=== PATIENT | male | born 1965 | race Caucasian/White ===

== ENCOUNTER 2017-01-29 15:01 | Inpatient (IN) | payer MEDICARE, MEDICAID ==
[2017-01-29] MEDS ORDERED: Albuterol/Ipratropium Neb 3 ML AERS HHN ONE ×4 (15:10→16:22)
--- NOTE | 2017-01-29 15:10 | ED Physician Chart ---
Chief Complaint/HPI - Patient Information Date Seen:: 01/29/17 Time Seen:: 15:06 Chief Complaint:: cough History of Present Illness:: pt sent from [place] for increased cough and sob. has copd hx. cough is prod of white sputum. no known fever. pt has chronic pain dx..says his main pain now is rt shldr shich has been sore x 10 months. no cp. no leg edema or pains. Allergies:: Allergies Allergy/AdvReac Type Severity Reaction Status Date / Time azithromycin Allergy Verified 03/28/16 18:06 erythromycin base Allergy Verified 03/28/16 18:06 lorazepam [From Ativan] Allergy Verified 03/28/16 18:06 Historian:: Patient, EMS Review:: Transfer documents Reviewed Review of Systems - Review of Systems General/Constitutional: No fever, No chills, No weight loss, No weakness, No diaphoresis, No edema, No loss of appetite Skin: No skin lesions, No rash, No bruising Head: No headache, No light-headedness Eyes: No loss of vision, No pain, No diplopia ENT: No earache, No nasal drainage, No sore throat, No tinnitus Neck: No neck pain, No swelling, No thyromegaly, No stiffness, No mass noted Cardio Vascular: No chest pain, No palpitations, No PND, No orthopnea, No edema Pulmonary: SOB, Cough, Sputum, Wheezing GI: No nausea, No vomiting, No diarrhea, No pain, No melena, No hematochezia, No constipation, No hematemesis G/U: No dysuria, No frequency, No hematuria Musculoskeletal: No bone or joint pain, No back pain, No muscle pain Endocrine: No polyuria, No polydipsia Psychiatric: No prior psych history, No depression, No anxiety, No suicidal ideation Hematopoietic: No bruising, No lymphadenopathy Allergic/Immuno: No urticaria, No angioedema Neurological: No syncope, No focal symptoms, No weakness, No paresthesia, No headache, No seizure, No dizziness, No confusion, No vertigo Past Medical History - Past Medical History Past Medical History: HTN, DM, CHF, Asthma/COPD, Dyslipidemia, PUD/GERD, Other ( afib hx w pacer/defibrillator, chronic pain) Social History: Smoker (former smoker), Care Facility Surgical History: other (afib hx w pacer/defibrillator) Medication: Reviewed Family Medical History - Family Member Mother History Unknown: Yes Ethnicity: Non- Living Status: Still Living Hx Family Hypertension: Yes Physical Exam - Physical Examination General/Constitutional: Awake, Well-developed, well-nourished, Alert, No distress, GCS 15, Non-toxic appearing, Ambulatory Other Gen/Cons comments:: alert. conversive. nad. not dyspneic but wheezing heard in b lungfields on exam. Head: Atraumatic Eyes: Lids, conjuctiva normal, PERRL, EOMI Skin: Nl inspection, No rash, No skin lesions, No ecchymosis, Well hydrated, No lymphadenopathy ENMT: External ears, nose nl, Nasal exam nl, Lips, teeth, gums nl Neck: Nontender, Full ROM w/o pain, No JVD, No nuchal rigidity, No bruit, No mass, No stridor Respiratory: Nl effort/Exclusion, Clear to Auscultation Other Respiratory comments:: not dyspneic but wheezing heard in b lungfields on exam. pacer palpable sq in l upper chest Cardio Vascular: RRR, No murmur, gallop, rubs, NL S1 S2 GI: No tenderness/rebounding/guarding, No organomegaly, No hernia, Normal BS's, Nondistended, No mass/bruits, No McBurney tenderness : No CVA tenderness Extremities: No tenderness or effusion, Full ROM, normal strength in all extremities, No edema, Normal digits & nails Other Extremities comments:: no edema. no homans sx. nontndr. not red. Neuro/Psych: Alert/oriented, DTR's symmetric, Normal sensory exam, Normal motor strength, Judgement/insight normal, Mood normal, Normal gait, No focal deficits Misc: normal gait, Normal back, No paraspinal tenderness Labs/Radiology/EKG Results - Lab Results Results: Laboratory Tests 01/29/17 01/29/17 01/29/17 15:31 15:31 15:31 WBC 7.0 D RBC 4.11 L Hgb 12.7 L Hct 37.9 L MCV 92.1 MCH 30.8 H MCHC Differential 33.4 RDW 13.4 Plt Count 190 D MPV 8.5 Neutrophils % 69.6 Lymphocytes % 15.4 L Monocytes % 11.8 H Eosinophils % 2.4 Basophils % 0.8 Sodium 132 L Potassium 6.1 H* Chloride 100 Carbon Dioxide 31.9 H Anion Gap 6.2 L BUN 24 Creatinine 1.3 Est GFR ( Amer) > 60.0 Est GFR (Non-Af Amer) > 60.0 BUN/Creatinine Ratio 18.5 Glucose 119 H Whole Bld Lactic Acid 0.59 L Calcium 9.4 Total Bilirubin 0.3 AST 16 ALT 8 Alkaline Phosphatase 64 Total Protein 7.1 Albumin 4.2 Globulin 2.9 Albumin/Globulin Ratio 1.5 Digoxin 01/29/17 15:31 WBC RBC Hgb Hct MCV MCH MCHC Differential RDW Plt Count MPV Neutrophils % Lymphocytes % Monocytes % Eosinophils % Basophils % Sodium Potassium Chloride Carbon Dioxide Anion Gap BUN Creatinine Est GFR ( Amer) Est GFR (Non-Af Amer) BUN/Creatinine Ratio Glucose Whole Bld Lactic Acid Calcium Total Bilirubin AST ALT Alkaline Phosphatase Total Protein Albumin Globulin Albumin/Globulin Ratio Digoxin 1.7 asked lab to redraw K and confirm elev k is not from hemolysis (ecg shows no qrs widening) - Radiology Results Results: cxr wnl. - EKG Interpretations EKG Time:: 15:25 Rate & Rhythm: nsr 96 [place]: -90 Intervals: pr 204 Comments:: no acute injury patern. pt has a fib hx but I see nsr now..no pacer spikes seen Assessment - Assessment General Assessment: rechk 3;44p pt still sob w wheezing b lungs. sao2 88 on ra. 2nd duoneb and solumedrol ordered. ED Septic Shock - . Is Septic Shock (SBP<90, OR Lactate>4 mmol\L) present?: No Reassessment (Disposition) - Reassessment Reassessment:: rechk sao2 95% on 2l. pt has been drowsing intermittently...at 1 point he concerned me because of his habit of sleeping w mouth open in gasping attitude..however closer exam reveals he is breathing well (w diffuse wheeze still) and easily arousable and speaking wo trouble. 5;27pm calls to dr roque...no answer x over 1 hour. 6;35p case dw dr roque...is admitting pt Reassessment Condition:: Improved - Diagnosis Diagnosis:: copd exacerbation hyperkalemia - Patient Disposition Admitted to:: Telemetry Condition at Disposition:: Improved
--- NOTE | 2017-01-29 15:30 | Diagnostic Imaging Report ---
Portable chest x-ray HISTORY: Cough The heart is enlarged. Cardiac electrode lead wires project over the right atrium and right ventricle. No focal pulmonary processes. No hilar or mediastinal abnormalities. IMPRESSION: 1. Cardiomegaly 2. No acute focal pulmonary parenchymal processes
[2017-01-29 15:40] LABS: % BASOPHILS 0.8 % (0.0-2.0); % EOSINOPHILS 2.4 % (0.0-5.0); % LYMPHOCYTES 15.4 % (20.0-50.0); % MONOCYTES 11.8 % (2.0-10.0); % NEUTROPHILS 69.6 % (40.0-80.0); HEMATOCRIT 37.9 % (39.0-49.0); HEMOGLOBIN 12.7 gm/dL (13.2-17.3); MEAN CELL VOLUME 92.1 fl (80-99); MEAN CORPUSCULAR HEMOGLOBIN 30.8 pg (26.0-30.0); MEAN CORPUSCULAR HGB CONC 33.4 pg (28.0-36.0); MEAN PLATELET VOLUME 8.5 fl; NEUTROPHILE ABSOLUTE 4.8 Th/cmm (1.8-8.0); RED BLOOD COUNT 4.11 Mil/cmm (4.30-5.70); RED CELL DISTRIBUTION WIDTH 13.4 % (11.5-20.0)
[2017-01-29 15:44] LABS: PLATELET COUNT 190 Th/cmm (150-400)
[2017-01-29 15:54] LABS: ALB/GLOB RATIO 1.5 (1.0-1.8); ALKALINE PHOSPHATASE 64 U/L (34-104); ANION GAP 6.2 (7.0-16.0); BILIRUBIN,TOTAL 0.3 mg/dL (0.3-1.0); BUN - UREA NITROGEN 24 mg/dL (7-25); BUN/CREATININE RATIO 18.5; CALCIUM SERUM 9.4 mg/dL (8.6-10.3); CARBON DIOXIDE 31.9 mEq/L (21.0-31.0); CHLORIDE 100 mEq/L (98-107); CREATININE - SERUM 1.3 mg/dL (0.7-1.3); GLUCOSE 119 mg/dL (70-105); SGOT 16 U/L (13-39); SGPT/ALT 8 U/L (7-52); SODIUM SERUM 132 mEq/L (136-145)
[2017-01-29 16:07] LABS: POTASSIUM SERUM 6.1 mEq/L (3.5-5.1)
[2017-01-29] MEDS ORDERED: Sodium Chloride 0.9% 500 ML IV ONE (17:22)
[2017-01-29] MEDS ORDERED: Albuterol Nebulizer 2.5mg/3mL HHN ONE ×2 (19:18→19:20)
[2017-01-29] MEDS ORDERED: Levofloxacin 500mg/100mL 500 MG/100 ML BAG IV ONE (19:30)
[2017-01-29] MEDS ORDERED: Insulin Detemir 100 units/mL 10mL Vial SUBQ SCH (21:00)
[2017-01-29] MEDS: methylPREDNISolone SS 40 mg Vial IVP SCH (21:06)
[2017-01-29] MEDS ORDERED: Magnesium Hydroxide (MOM) 30 mL UDC PO PRN (21:10)
[2017-01-29] MEDS ORDERED: HYDROMORPHONE HCL PO PRN (21:10)
[2017-01-29] MEDS ORDERED: Fleet Enema 135 mL RC PRN (21:10)
[2017-01-29] MEDS ORDERED: [UNRECOGNIZED DRUG - OTHER] IH SCH (21:15)
[2017-01-29] MEDS ORDERED: INDACATEROL IH SCH (21:15)
[2017-01-29] MEDS ORDERED: GLYCOPYRROLATE IH SCH (21:15)
[2017-01-29] MEDS ORDERED: Dextrose 50% 50 mL Abboject IVP PRN (21:15)
[2017-01-29] MEDS: Lidocaine 5% Patch TD SCH (21:33)
[2017-01-29] MEDS: HYDROmorphone 1 mg/mL 1mL Syr IVP PRN (21:36)
[2017-01-29] MEDS: INSULIN ASPART SLIDING SCALE 100 UNITS/ML UNIT SUBQ SCH ×3 (21:39→21:41)
[2017-01-29] MEDS ORDERED: Pneumococcal Vaccine 0.5 mL Vial IM ONE (22:26)
[2017-01-30] MEDS: HYDROmorphone 1 mg/mL 1mL Syr IVP PRN ×3 (02:44→20:13)
[2017-01-30] MEDS: Albuterol Nebulizer 2.5mg/3mL HHN PRN ×2 (03:22→07:47)
[2017-01-30 04:24] LABS: MEAN PLATELET VOLUME 9.1 fl
[2017-01-30 04:37] LABS: HEMOGLOBIN 13.9 gm/dL (13.2-17.3); MEAN CELL VOLUME 93.1 fl (80-99); MEAN CORPUSCULAR HEMOGLOBIN 30.4 pg (26.0-30.0); MEAN CORPUSCULAR HGB CONC 32.7 pg (28.0-36.0); PLATELET COUNT 178 Th/cmm (150-400); RED BLOOD COUNT 4.58 Mil/cmm (4.30-5.70); RED CELL DISTRIBUTION WIDTH 12.9 % (11.5-20.0); WHITE BLOOD COUNT 6.6 Th/cmm (4.8-10.8)
[2017-01-30 04:53] LABS: ANION GAP 11.6 (7.0-16.0); BUN - UREA NITROGEN 25 mg/dL (7-25); BUN/CREATININE RATIO 22.7; CALCIUM SERUM 9.3 mg/dL (8.6-10.3); CARBON DIOXIDE 29.3 mEq/L (21.0-31.0); CHLORIDE 98 mEq/L (98-107); CHOLESTEROL 119 mg/dL (<200); CREATININE - SERUM 1.1 mg/dL (0.7-1.3); GLUCOSE 212 mg/dL (70-105); POTASSIUM SERUM 5.9 mEq/L (3.5-5.1); SODIUM SERUM 133 mEq/L (136-145); TRIGLYCERIDES 69 mg/dL (<150)
[2017-01-30 05:10] LABS: HEMATOCRIT 42.6 % (39.0-49.0)
[2017-01-30 05:40] LABS: BAND NEUTROPHILE 1 % (0-10); NEUTROPHILS 88 % (40-80); TOTAL CELLS COUNTED 100
[2017-01-30] MEDS: methylPREDNISolone SS 40 mg Vial IVP SCH ×3 (05:41→23:17)
[2017-01-30] MEDS: INSULIN ASPART SLIDING SCALE 100 UNITS/ML UNIT SUBQ SCH ×4 (06:40→20:12)
[2017-01-30] MEDS: Pantoprazole 40 mg EC Tab PO SCH ×3 (06:40→17:25)
[2017-01-30] MEDS ORDERED: INSULIN HUMAN REGULAR 100 UNITS/ML UNIT SUBQ SCH (07:30)
[2017-01-30] MEDS ORDERED: Non-Formulary Item 1 EA (Docusate Sodium [Docusate Sodium] 100 MG) RC SCH (09:00)
[2017-01-30] MEDS ORDERED: Benztropine 1 MG TAB PO SCH (09:00)
[2017-01-30] MEDS: Ferrous Sulfate 325 MG TAB PO SCH ×2 (09:40→17:25)
[2017-01-30] MEDS: Benztropine 1 MG TAB PO SCH ×2 (09:40→17:25)
[2017-01-30] MEDS: Aspirin 81mg Chewable Tab PO SCH (09:42)
[2017-01-30] MEDS: Lidocaine 5% Patch TD SCH ×2 (12:33→21:50)
[2017-01-30] MEDS ORDERED: Codeine/Promethazine Susp 5 mL UDC PO PRN (18:57)
[2017-01-30] MEDS: Levofloxacin 500mg/100mL Premix Bag IV SCH (20:08)
[2017-01-30] MEDS: Atorvastatin Calcium 10 MG TAB PO SCH (20:09)
[2017-01-30] MEDS: Insulin Detemir 100 units/mL 10mL Vial SUBQ SCH (20:12)
[2017-01-30] MEDS ORDERED: Atorvastatin Calcium 10 MG TAB PO SCH (21:00)
--- NOTE | 2017-01-30 21:52 | History & Physical ---
ADMIT DATE: 01/30/2017 HISTORY OF PRESENT ILLNESS: This patient is very well known to me. The patient known to have history of multiple problems. The patient known to have history of underlying psychosis, history of severe peripheral neuropathy and the patient also has a history of fibromyalgia and history of hypertension, history of diabetes, history of asthma, COPD, dyslipidemia, peptic ulcer disease, history of atrial fibrillation. The patient has history of pacemaker and history of prior smoking. The patient was seen in the assisted. The patient complaining of increasing cough and increasing shortness of breath, was evaluated in the Emergency Room, was found to have acute exacerbation of COPD, was admitted. The patient complains of chronic pain, complains of right shoulder pain. PHYSICAL EXAMINATION: HEENT: Head: Normocephalic. Pupils equal, reactive to light. NECK: Supple, nontender. LUNGS: Clear. CARDIOVASCULAR SYSTEM: S1, S2 heard. ABDOMEN: Soft. Bowel sounds are heard. CENTRAL NERVOUS SYSTEM: Grossly normal bilateral rhonchi. LABORATORY DATA: White count was 7.0, hemoglobin 12.7, hematocrit was 37. Electrolytes were normal. DIAGNOSES: Acute exacerbation of chronic obstructive pulmonary disease, ____, history of right shoulder pain, history of severe neuralgia, history of severe bronchitis, rule out pneumonia. History of hypertension, history of diabetes, history of atrial fibrillation status post pacemaker. PLAN: The patient is being admitted and I will follow the patient. I will have Pulmonary doctor as well as the Cardiology see the patient. JOB# [id number]
--- NOTE | 2017-01-30 23:13 | Consultation ---
DATE OF CONSULTATION: 01/30/[address] Jaquez for this consultation. HISTORY OF PRESENT ILLNESS: The patient is a 51-year-old male with history of COPD, presents with cough, congestion, shortness of breath and was admitted for treatment and management. The patient is feeling better, shortness of breath decreased and has been receiving breathing treatment. PAST MEDICAL HISTORY: As above, in addition to hypertension, dyslipidemia. SOCIAL HISTORY: Smoking 6 cigarettes a day. He was smoking more in the past, has been smoking for 30 years. REVIEW OF SYSTEMS: GENERAL: Fatigue. CARDIOVASCULAR: No chest pain or palpation. RESPIRATORY: Shortness of breath and cough. GASTROINTESTINAL: No nausea or vomiting. PHYSICAL EXAMINATION: GENERAL: Awake, alert, not in acute distress. VITAL SIGNS: Temperature 97.6, pulse 86, respirations 20, blood pressure 152/82, saturation 93% on 2 liters. HEENT: Atraumatic, normocephalic. Pupils react to light and accommodation. Ears, nose and throat normal. NECK: Supple. No JVD. CHEST: There is diffuse wheezing and rhonchi bilaterally. HEART: Regular rate and rhythm. ABDOMEN: Soft. EXTREMITIES: No edema. LABORATORY DATA: WBC 6.6, hemoglobin 13.9, hematocrit 42.6, platelets 178. Sodium 132, potassium 5.9, BUN 25, creatinine 1.1. TSH is 0.15. Chest x-ray: Cardiomegaly, no infiltrate. IMPRESSION: 1. This is a 51-year-old male with acute chronic obstructive pulmonary disease exacerbation. 2. Acute bronchitis. PLAN: 1. IV antibiotics. 2. IV Solu-Medrol. 3. Nebulizer. 4. Pulmonary toilet. 5. Supportive care. 6. The patient was counseled to quit smoking. Thank you very much for this consultation. I will follow the patient with you. JOB# [id number] KADEN
--- NOTE | 2017-01-30 23:54 | Consultation ---
DATE OF CONSULTATION: 01/29/[address] Jaquez. HISTORY AND PHYSICAL: This is a 51-year-old male patient was brought to the Emergency Room due to upper respiratory tract infection. The patient became short of breath. The patient was seen in the Emergency Room with respiratory failure. Cardiac consult is requested. PAST MEDICAL HISTORY: Hyperkalemia, hypertension, COPD, supraventricular tachycardia, diabetes mellitus type 2, congestive heart failure, GERD, atrial fibrillation, pacemaker for sick sinus syndrome. FAMILY HISTORY: Unremarkable. SOCIAL HISTORY: ____ alcohol abuse. The patient smokes about 1 pack a day. ALLERGIES: None. PHYSICAL EXAMINATION: VITAL SIGNS: Blood pressure 130/80, pulse 80, respirations 28. HEAD: Head: Normocephalic. No lumps or bumps. EYES: Pupils equal, reactive to light. Fundi show AV nicking, sclerae white, conjunctivae pink. NECK: Carotid 2+. Normal upstroke. JVD flat. Thyroid not palpable. Lymph nodes not palpable. CHEST: Shows increased AP diameter. No kyphosis, scoliosis. LUNGS: Bilateral bronchovesicular breath sounds. Occasional wheeze. No rales. HEART: PMI fifth intercostal space with lateral to midclavicular line. S1, S2. No S3, soft S4, systolic murmur, grade 2/6, lower left sternal border without radiation. ABDOMEN: Soft. Liver, spleen not palpable. No organomegaly. Bowel sounds are active. NEUROLOGIC: Unremarkable. EXTREMITIES: Peripheral pulses 1+. No pedal edema. CLINICAL IMPRESSION: Acute respiratory failure, rule out pneumonia, acute exacerbation of chronic obstructive pulmonary disease, hyperkalemia, hypertension, supraventricular tachycardia, diabetes mellitus type 2, congestive heart failure, GERD, atrial fibrillation, sick sinus syndrome, pacemaker. PLAN: We will get an echocardiogram to evaluate left ventricular function. We will get a BNP level and IV antibiotics, control the heart rate. JOB# [id number]
[2017-01-31] MEDS: methylPREDNISolone SS 40 mg Vial IVP SCH ×3 (06:00→17:27)
[2017-01-31] MEDS: Albuterol Nebulizer 2.5mg/3mL HHN PRN ×2 (06:20→10:04)
[2017-01-31] MEDS: INSULIN ASPART SLIDING SCALE 100 UNITS/ML UNIT SUBQ SCH ×4 (06:36→20:53)
[2017-01-31] MEDS: Pantoprazole 40 mg EC Tab PO SCH ×3 (06:37→17:29)
[2017-01-31 07:42] LABS: BUN - UREA NITROGEN 32 mg/dL (7-25); BUN/CREATININE RATIO 29.1; CALCIUM SERUM 9.5 mg/dL (8.6-10.3); CHLORIDE 96 mEq/L (98-107); CREATININE - SERUM 1.1 mg/dL (0.7-1.3); GLUCOSE 204 mg/dL (70-105); SODIUM SERUM 131 mEq/L (136-145)
[2017-01-31] MEDS ORDERED: Lidocaine 5% Patch TD SCH (09:00)
[2017-01-31] MEDS: Ferrous Sulfate 325 MG TAB PO SCH ×2 (09:09→17:28)
[2017-01-31] MEDS: Benztropine 1 MG TAB PO SCH ×2 (09:09→17:29)
[2017-01-31] MEDS: Aspirin 81mg Chewable Tab PO SCH (09:10)
[2017-01-31] MEDS: Lidocaine 5% Patch TD SCH (09:21)
[2017-01-31] MEDS ORDERED: Probiotic Screen MC PRN (09:30)
[2017-01-31] MEDS: HYDROmorphone 1 mg/mL 1mL Syr IVP PRN ×3 (10:33→20:53)
--- NOTE | 2017-01-31 13:40 | General Progress Note ---
Subjective - Review of Systems Events since last encounter: patient with no distress Objective - Results Result Diagrams: 01/30/17 03:30 01/31/17 06:55 Recent Labs: Laboratory Last Values WBC 6.6 Th/cmm (4.8-10.8) 01/30/17 03:30 RBC 4.58 Mil/cmm (4.30-5.70) 01/30/17 03:30 Hgb 13.9 gm/dL (13.2-17.3) 01/30/17 03:30 Hct 42.6 % (39.0-49.0) D 01/30/17 03:30 MCV 93.1 fl (80-99) 01/30/17 03:30 MCH 30.4 pg (26.0-30.0) H 01/30/17 03:30 MCHC Differential 32.7 pg (28.0-36.0) 01/30/17 03:30 RDW 12.9 % (11.5-20.0) 01/30/17 03:30 Plt Count 178 Th/cmm (150-400) 01/30/17 03:30 MPV 9.1 fl 01/30/17 03:30 Neutrophils % 69.6 % (40.0-80.0) 01/29/17 15:31 Band Neutrophils % 1 % (0-10) 01/30/17 03:30 Lymphocytes % 15.4 % (20.0-50.0) L 01/29/17 15:31 Monocytes % 11.8 % (2.0-10.0) H 01/29/17 15:31 Eosinophils % 2.4 % (0.0-5.0) 01/29/17 15:31 Basophils % 0.8 % (0.0-2.0) 01/29/17 15:31 Neutrophils (Manual) 88 % (40-80) H 01/30/17 03:30 Lymphocytes 9 % (20-50) L 01/30/17 03:30 Monocytes 2 % (2-10) 01/30/17 03:30 Sodium 131 mEq/L (136-145) L 01/31/17 06:55 Potassium 5.0 mEq/L (3.5-5.1) 01/31/17 06:55 Chloride 96 mEq/L (98-107) L 01/31/17 06:55 Carbon Dioxide 31.0 mEq/L (21.0-31.0) 01/31/17 06:55 Anion Gap 9.0 (7.0-16.0) 01/31/17 06:55 BUN 32 mg/dL (7-25) H 01/31/17 06:55 Creatinine 1.1 mg/dL (0.7-1.3) 01/31/17 06:55 Est GFR ( Amer) > 60.0 ml/min (>90) 01/31/17 06:55 Est GFR (Non-Af Amer) > 60.0 ml/min 01/31/17 06:55 BUN/Creatinine Ratio 29.1 01/31/17 06:55 Glucose 204 mg/dL (70-105) H 01/31/17 06:55 POC Glucose 311 MG/DL (70 - 105) H 01/31/17 11:14 Hemoglobin A1c % 7.0 % (4.0-6.0) H 01/29/17 15:31 Whole Bld Lactic Acid 0.59 mmol/L (0.60-1.99) L 01/29/17 15:31 Calcium 9.5 mg/dL (8.6-10.3) 01/31/17 06:55 Total Bilirubin 0.3 mg/dL (0.3-1.0) 01/29/17 15:31 AST 16 U/L (13-39) 01/29/17 15:31 ALT 8 U/L (7-52) 01/29/17 15:31 Alkaline Phosphatase 64 U/L (34-104) 01/29/17 15:31 Troponin I 0.03 ng/mL (0.01-0.05) 01/30/17 11:55 B-Natriuretic Peptide 365.0 pg/mL (5.0-100.0) H 01/31/17 06:55 Total Protein 7.1 gm/dL (6.0-8.3) 01/29/17 15:31 Albumin 4.2 gm/dL (4.2-5.5) 01/29/17 15:31 Globulin 2.9 gm/dL 01/29/17 15:31 Albumin/Globulin Ratio 1.5 (1.0-1.8) 01/29/17 15:31 Triglycerides 69 mg/dL (<150) 01/30/17 03:30 Cholesterol 119 mg/dL (<200) 01/30/17 03:30 LDL Cholesterol Direct 78 mg/dL (75-193) 01/30/17 03:30 HDL Cholesterol 34 mg/dL (23-92) 01/30/17 03:30 TSH 0.15 uIU/ml (0.34-5.60) L 01/30/17 03:30 Digoxin 1.7 ng/ml (0.8-2.0) 01/29/17 15:31 - Physical Exam Vitals and I&O: Vital Signs Temp 97.6 F 01/31/17 04:00 Pulse 116 01/31/17 11:23 Resp 20 01/31/17 10:47 BP 113/63 01/31/17 11:23 Pulse Ox 90 01/31/17 10:04 Intake & Output 01/30/17 01/31/17 01/31/17 18:59 06:59 18:59 Intake Total 600 100 Output Total 300 Balance 600 -200 Weight (lbs) 112.945 kg 112.037 kg Intake: Intake, IV Amount 100 Levofloxacin 500mg/100mL 100 500 mg In 100 ml @ 100 mls/hr IV Q24HR [facility] Rx#: [id number] Oral 600 Output: Urine 300 Other: # Voids 2 # Bowel Movements 0 Active Medications: Current Medications Acetaminophen (Tylenol) 650 mg PO Q4HR PRN PRN Reason: temp >100 or mild pain Stop: 03/30/17 21:09 Albuterol Sulfate (Albuterol 2.5mg/3ml Neb Ud) 2.5 mg HHN Q4H PRN PRN Reason: Wheezing Last Admin: 01/31/17 10:04 Dose: 2.5 mg Albuterol Sulfate (Albuterol 2.5mg/3ml Neb Ud) 2.5 mg HHN Q4H PRN PRN Reason: Shortness of Breath Stop: 03/30/17 22:41 Last Admin: 01/30/17 07:47 Dose: 2.5 mg Amiodarone HCl (Cordarone) 200 mg PO BID [facility] Stop: 04/01/17 16:59 Aspirin (Aspirin Chewable) 81 mg PO DAILY [facility] Stop: 03/31/17 08:59 Last Admin: 01/31/17 09:10 Dose: 81 mg Atorvastatin Calcium (Lipitor) 10 mg PO HS AL PRN Reason: Protocol Stop: 03/31/17 20:59 Last Admin: 01/30/17 20:09 Dose: 10 mg Benztropine Mesylate (Cogentin) 1 mg PO BID [place] Stop: 03/31/17 08:59 Last Admin: 01/31/17 09:09 Dose: 1 mg Bisacodyl (Dulcolax 10 Mg Supp) 10 mg RC DAILY PRN PRN Reason: if MOM ineffective Stop: 03/30/17 21:09 Clonazepam (Klonopin) 1 mg PO BID [facility] Stop: 03/31/17 08:59 Last Admin: 01/31/17 09:10 Dose: 1 mg Dextrose (D50w) 25 ml IVP PRN PRN PRN Reason: BS BELOW 70 & NPO Stop: 03/30/17 21:14 Digoxin (Lanoxin) 0.25 mg PO DAILY [facility] Stop: 03/31/17 08:59 Last Admin: 01/31/17 09:09 Dose: 0.25 mg Docusate Sodium (Colace) 100 mg PO BID [facility] Stop: 03/31/17 08:59 Last Admin: 01/31/17 09:09 Dose: 100 mg Escitalopram Oxalate (Lexapro) 60 mg PO DAILY [place] PRN Reason: Protocol Stop: 03/31/17 08:59 Last Admin: 01/31/17 09:21 Dose: 60 mg Ferrous Sulfate (Iron) 325 mg PO BID [facility] Stop: 03/31/17 08:59 Last Admin: 01/31/17 09:09 Dose: 325 mg Gabapentin (Neurontin) 300 mg PO TID [facility] Stop: 03/31/17 08:59 Last Admin: 01/31/17 09:10 Dose: 300 mg Hydromorphone HCl (Dilaudid) 1 mg IVP Q4HR PRN PRN Reason: Severe Pain Stop: 03/30/17 21:09 Last Admin: 01/31/17 10:33 Dose: 1 mg Levofloxacin (Levaquin Pb) 500 mg in 100 mls @ 100 mls/hr IV Q24HR [facility] Stop: 03/31/17 20:59 Last Infusion: 01/30/17 21:08 Dose: Infused Insulin Aspart (Novolog Insulin Sliding Scale) 0 units SUBQ ACHS [facility] PRN Reason: Protocol Stop: 03/30/17 07:29 Last Admin: 01/31/17 11:22 Dose: 8 units Insulin Detemir (Levemir Insulin) 20 units SUBQ HS AL PRN Reason: Protocol Stop: 03/30/17 20:59 Last Admin: 01/30/17 20:12 Dose: 20 units Lactobacillus Rhamnosus (Culturelle) 1 each PO DAILY [facility] Stop: 04/02/17 08:59 Lidocaine (Lidoderm 5% Patch) 1 patch TD DAILY [facility] Stop: 04/01/17 08:59 Last Admin: 01/31/17 09:21 Dose: 1 patch Lisinopril (Zestril) 10 mg PO Q12H [facility] Stop: 03/30/17 22:59 Last Admin: 01/31/17 11:23 Dose: 10 mg Magnesium Hydroxide (Milk Of Magnesia) 30 ml PO DAILY PRN PRN Reason: if no BM x2 days Stop: 03/30/17 21:09 Magnesium Oxide (Mag-Oxide) 400 mg PO DAILY [facility] Stop: 03/31/17 08:59 Last Admin: 01/31/17 09:00 Dose: 400 mg Methylprednisolone Sodium Succinate (Solu-Medrol) 40 mg IVP Q6HR [facility] Stop: 03/31/17 17:59 Last Admin: 01/31/17 11:15 Dose: 40 mg Metoprolol Tartrate (Lopressor) 25 mg PO Q12H [facility] Stop: 03/30/17 22:58 Last Admin: 01/31/17 11:23 Dose: 25 mg Miscellaneous (Indacaterol/Glycopyrrolate [Utibron Neohaler 27.5-15.6 Mcg]) 1 each IH Q12H [facility] Stop: 03/30/17 21:14 Miscellaneous (Probiotic Screen) 1 ea MC PRN PRN PRN Reason: PROTOCOL Stop: 04/01/17 09:29 Ondansetron HCl (Zofran) 4 mg IV Q6H PRN PRN Reason: Nausea / Vomiting Stop: 03/30/17 21:10 Pantoprazole Sodium (Protonix) 40 mg PO AC [facility] Stop: 03/31/17 07:29 Last Admin: 01/31/17 11:16 Dose: 40 mg Promethazine HCl/Codeine (Phenergan W/Cod Susp) 5 ml PO Q4H PRN PRN Reason: Cough Stop: 03/31/17 18:56 Risperidone (Risperdal) 3 mg PO BID AL PRN Reason: Protocol Stop: 03/31/17 08:59 Last Admin: 01/31/17 09:09 Dose: 3 mg Sodium Phosphate (Fleet Enema) 135 ml RC DAILY PRN PRN Reason: if MOM or dulcolax ineffective Stop: 03/30/17 21:09 Spironolactone (Aldactone) 25 mg PO DAILY [facility] Stop: 03/31/17 08:59 Last Admin: 01/31/17 09:11 Dose: 25 mg Terazosin HCl (Hytrin) 5 mg PO HS [facility] Stop: 03/31/17 20:59 Last Admin: 01/30/17 20:10 Dose: 5 mg Assessment/Plan - Problem List Patient Problems: All Active Problems Diastolic CHF, acute on chronic (Acute) I50.33 H/O CHF (Acute) Z86.79 H/O cardiomyopathy (Acute) Z86.79 H/O diabetes mellitus (Acute) Z86.39 HTN (hypertension) (Acute) I10 h/o diastolic heart failure (Acute) intracticular fracture of the humeral he (Acute) Nutritional Asmnt/Malnutr-PDOC - Dietary Evaluation Malnutrition Findings (Please click <Entered> for more info): Nutritional Asmnt/Malnutrition Start: 01/31/17 11: 57 Text: Status: Complete Freq: Document 01/31/17 11:57 [facility] (Rec: 01/31/17 12:27 [facility]-[id number]) Nutritional Asmnt/Malnutrition Patient General Information Nutritional Screening Consult Diagnosis Acute exacerbation of COPD Pertinent Medical Hx/Surgical Hx Underlying psychosis, severe peripheral neuropathy, HTN, DM , asthma, COPD, dyslipidemia, peptic ulcer disease, atrial fibillation, pacemaker placement. Subjective Information Nutrition Consult for BG 236 received and completed. Pt is a 51-year-old male admitted with chief complaint of increasing cough and increasing shortness of breath . Pt was awake and alert during time of visit. No muscle or fat depletion assessed. Pt reports having an "okay" appetite, eating three meals a day that his SNF prepares. RD offered diet education but pt declined at this time. Poor oral hygiene observed. Current Diet Order/ Nutrition Support CCHO-60 GM Patient / S.O Can Pertinent Medications Lipitor, Colace, Iron, Dilaudid, Novolog, Levemir, Levaquin, Mag-Oxide, Protonix, Risperdal Pertinent Labs (01/29) A1C 7H (01/31) Na 131L, BUN 32H, Glucose (fasting) 204H, POC Glucose 311H Nutritional Hx/Data Height 1.73 m Height (Calculated Centimeters) 172.7 Current Weight (lbs) 112.037 kg Weight (Calculated Kilograms) 112.0 Weight (Calculated Grams) 887441.3 Usual body Weight (lbs) 240 % Usual Body Weight 103 [place] Body Weight 154 % [place] Body Weight 156 Recent Weight Change No Weight Status Obese GI Symptoms GI Symptoms None Last BM Food Allergies No Cultural/Ethnic/Hindu Belief No preferences provided. Usual diet at home Low salt, low fat, low sugar Skin Integrity/Comment: Apolinar 20. No skin breakdown. Current %PO Fair (50-74%) Estimated Nutritional Goals BEE in Kcals: Adj wt of IBW Calories/Kcals/Kg Based on IBW 70 kg with consideration of COPD exacerbation Kcals Calculated 3240-5827 kcals/day (30-35 kcals/kg) Protein: Adj wt of IBW Protein g/kg: Based on IBW 70 kg with consideration of COPD exacerbation Protein Calculated 91-140 gm/day (1.3-2 gm/kg) Fluid: ml 1148-9944 ml/day (1 ml/kcal) or per MD/DO Nutritional Problem 1. Problem Problem Altered-nutrition related laboratory values related to Etiology possible endocrine dysfunction or respiratory distress as evidenced by` Signs/Symptoms: fasting glucose 204 mg/dl on . Malnutrition Alert Protein-Calorie Malnutrition N/A Is there a minimum of two criteria No selected? Query Text:Check all the applicable criteria. A minimum of two criteria are recommended for diagnosis of either severe or non-severe malnutrition. Malnutrition Related to Morbid Obesity Malnutrition related to morbid obesity No Intervention/Recommendation Recommendations by RD Increase Calorie Intake Comments 1. Recommend increase diet to CCHO-75 gm to better meet estimated nutritional needs. 2. Pt declined nutrition education at this time. Expected Outcomes/Goals Expected Outcomes/Goals Blood glucose will trend towards desired parameters. Physician Parameters for PEM Serum Albumin (g/dl) 3.5 - 5.0 (Normal)
[2017-01-31 14:47] LABS: ABG SOURCE Arterial; BE(B) 6.7 mEq/L (-3.0-3.0); HCO3 30.1 mEq/L (20.0-26.0); pH 7.32 (7.35-7.45)
[2017-01-31 14:48] LABS: ALLEN TEST PASS; CRITICAL VALUES REPORTED BY PW; FIO2 28
[2017-01-31] MEDS: Albuterol Nebulizer 2.5mg/3mL HHN SCH ×3 (15:19→23:24)
[2017-01-31] MEDS: Insulin Detemir 100 units/mL 10mL Vial SUBQ SCH (20:53)
[2017-01-31] MEDS: Atorvastatin Calcium 10 MG TAB PO SCH (20:53)
[2017-01-31] MEDS: Levofloxacin 500mg/100mL Premix Bag IV SCH (21:07)
[2017-02-01] MEDS: methylPREDNISolone SS 40 mg Vial IVP SCH ×5 (00:38→23:55)
[2017-02-01] MEDS: Albuterol Nebulizer 2.5mg/3mL HHN SCH ×6 (03:08→23:50)
--- NOTE | 2017-02-01 03:53 | Admit Criteria Form ---
Admit Criteria Forms - Admit Criteria Diagnosis: COPD Clinical Indications for Admission to Inpatient Care ([place]/ check or initial the applicable condition/criteria) Admission is indicated for ANY ONE of the following (1)(2)(3): [ X]I. Acute exacerbation by high-risk comorbidity(e.g., pneumonia, dysrhythmia, heart failure, pleural effusion, pneumothorax) or severe underlying COPD (eg, baseline FEV1 less than 50% predicted) [ ]II. Inpatient admission required[A] rather than observation care (see Chronic Obstructive Pulmonary Disease: Observation Care) because of ANY ONE of the following: [ ]a) New or pre-existing signs or symptoms of COPD (eg, dyspnea or Tachypnea at rest or with minimal activity) that persist despite outpatient and observation care treatment [ ]b) New-onset hypoxemia (room air SaO2 less than 90%, PO2 less than 60 mm Hg (8.0 kPa)) that persists despite outpatient and observation care treatment [ ]c) Worsening of pre-existing hypoxemia (eg, new or increased requirement for supplemental oxygen to maintain oxygenation at baseline level) that persists despite outpatient and observation care treatment, with oxygen treatment needs performable only in acute inpatient setting [ ]d) Hypercarbia (PCO2 greater than 40 mm Hg (5.3 kPa))-induced respiratory acidosis (pH less than 7.35) that persists despite outpatient and observation care treatment [ ]e) Supplemental oxygen or respiratory treatments for over 24 hours that are performable only in acute inpatient setting [ ]f) Chest tube placement with active evacuation (e.g., suction, drainage) (6) [ ]g) Other condition, treatment or monitoring requiring inpatient admission [ ]III. Planned invasive surgical or diagnostic procedures requiring acute- care hospitalization [ ]IV. Acute respiratory failure (e.g., uncompensated hypercarbia, severe hypoxemia) [ ]V. Severe comorbid condition (e.g., severe steroid myopathy, acute vertebral fracture) that has acutely worsened pulmonary function [ ]. Altered mental status that is severe or persistent Extended stay beyond goal length of stay may be needed for (29)(30)(31)(32)(33) : [ ]a ) Respiratory Failure. [ ]b) Severe or persisting hypoxemia or hypercarbia [ ]c) Severe or persistent dyspnea [ ]d) Clinically significant Comorbidities (e.g. chronic heart failure, atrial fibrillation with rapid response, pneumonia)(36) [ ]e) Malnutrition (33) The original [facility] content created by [facility] has been revised. The portions of the content which have been revised are identified through the use of italic text or in bold, and [facility] has neither reviewed nor approved the modified material. All other unmodified content is copyright [facility]. Please see references footnoted in the original [facility] edition 2017 Admit Criteria Met?: Yes
--- NOTE | 2017-02-01 04:54 | Cardiology ---
01/31/2017 PATIENT OF: Dr. Jaquez. M-MODE ECHOCARDIOGRAM: Mitral valve shows decreased excursion. Left ventricular posterior wall shows normal thickness, decreased excursion. Intraventricular septum showed normal thickness, decreased excursion. Ejection fraction 10%. Left atrium normal. Aortic root shows normal dimension, normal excursion of aortic leaflets. CONCLUSION: Minimal hypertrophy of the left ventricle, cardiomyopathy, ejection fraction 10%. 2D ECHO: Long axis view shows enlarged left ventricular cavity with global hypokinesis. Mitral valve shows decreased excursion. Left atrium normal. Aortic root shows normal dimension, normal excursion of aortic leaflets. Short axis view of mitral valve normal. Short axis view of aortic valve normal. Apical four chamber view shows cardiomyopathy, ejection fraction 10%, left atrium normal. Right ventricular cavity, right atrium normal, minimal hypertrophy of the left ventricle. CONCLUSION: Minimal hypertrophy of the left ventricle, cardiomyopathy, ejection fraction 10%. Doppler study shows mild aortic regurgitation. JOB# [id number]
[2017-02-01] MEDS: INSULIN ASPART SLIDING SCALE 100 UNITS/ML UNIT SUBQ SCH ×4 (07:02→20:34)
[2017-02-01] MEDS: Pantoprazole 40 mg EC Tab PO SCH ×3 (07:03→16:39)
[2017-02-01] MEDS: HYDROmorphone 1 mg/mL 1mL Syr IVP PRN ×3 (07:08→17:46)
--- NOTE | 2017-02-01 08:16 | General Progress Note ---
Subjective - Review of Systems Events since last encounter: patient with no distress c/o sob Objective - Results Result Diagrams: 01/30/17 03:30 01/31/17 06:55 Recent Labs: Laboratory Last Values WBC 6.6 Th/cmm (4.8-10.8) 01/30/17 03:30 RBC 4.58 Mil/cmm (4.30-5.70) 01/30/17 03:30 Hgb 13.9 gm/dL (13.2-17.3) 01/30/17 03:30 Hct 42.6 % (39.0-49.0) D 01/30/17 03:30 MCV 93.1 fl (80-99) 01/30/17 03:30 MCH 30.4 pg (26.0-30.0) H 01/30/17 03:30 MCHC Differential 32.7 pg (28.0-36.0) 01/30/17 03:30 RDW 12.9 % (11.5-20.0) 01/30/17 03:30 Plt Count 178 Th/cmm (150-400) 01/30/17 03:30 MPV 9.1 fl 01/30/17 03:30 Neutrophils % 69.6 % (40.0-80.0) 01/29/17 15:31 Band Neutrophils % 1 % (0-10) 01/30/17 03:30 Lymphocytes % 15.4 % (20.0-50.0) L 01/29/17 15:31 Monocytes % 11.8 % (2.0-10.0) H 01/29/17 15:31 Eosinophils % 2.4 % (0.0-5.0) 01/29/17 15:31 Basophils % 0.8 % (0.0-2.0) 01/29/17 15:31 Neutrophils (Manual) 88 % (40-80) H 01/30/17 03:30 Lymphocytes 9 % (20-50) L 01/30/17 03:30 Monocytes 2 % (2-10) 01/30/17 03:30 Specimen Source Arterial 01/31/17 14:40 Sample Site Right Radial 01/31/17 14:40 pH 7.32 (7.35-7.45) L 01/31/17 14:40 pCO2 68.0 mmHg (35.0-45.0) H* 01/31/17 14:40 pO2 71.0 mmHg (80.0-100.0) L 01/31/17 14:40 HCO3 30.1 mEq/L (20.0-26.0) H 01/31/17 14:40 Base Excess 6.7 mEq/L (-3.0-3.0) H 01/31/17 14:40 O2 Saturation 93.0 % (92.0-100.0) 01/31/17 14:40 [place] Test PASS 01/31/17 14:40 Inspired O2 28 01/31/17 14:40 Critical Value PW 01/31/17 14:40 Sodium 131 mEq/L (136-145) L 01/31/17 06:55 Potassium 5.0 mEq/L (3.5-5.1) 01/31/17 06:55 Chloride 96 mEq/L (98-107) L 01/31/17 06:55 Carbon Dioxide 31.0 mEq/L (21.0-31.0) 01/31/17 06:55 Anion Gap 9.0 (7.0-16.0) 01/31/17 06:55 BUN 32 mg/dL (7-25) H 01/31/17 06:55 Creatinine 1.1 mg/dL (0.7-1.3) 01/31/17 06:55 Est GFR ( Amer) > 60.0 ml/min (>90) 01/31/17 06:55 Est GFR (Non-Af Amer) > 60.0 ml/min 01/31/17 06:55 BUN/Creatinine Ratio 29.1 01/31/17 06:55 Glucose 204 mg/dL (70-105) H 01/31/17 06:55 POC Glucose 226 MG/DL (70 - 105) H 01/31/17 20:39 Hemoglobin A1c % 7.0 % (4.0-6.0) H 01/29/17 15:31 Whole Bld Lactic Acid 0.59 mmol/L (0.60-1.99) L 01/29/17 15:31 Calcium 9.5 mg/dL (8.6-10.3) 01/31/17 06:55 Total Bilirubin 0.3 mg/dL (0.3-1.0) 01/29/17 15:31 AST 16 U/L (13-39) 01/29/17 15:31 ALT 8 U/L (7-52) 01/29/17 15:31 Alkaline Phosphatase 64 U/L (34-104) 01/29/17 15:31 Troponin I 0.03 ng/mL (0.01-0.05) 01/30/17 11:55 B-Natriuretic Peptide 365.0 pg/mL (5.0-100.0) H 01/31/17 06:55 Total Protein 7.1 gm/dL (6.0-8.3) 01/29/17 15:31 Albumin 4.2 gm/dL (4.2-5.5) 01/29/17 15:31 Globulin 2.9 gm/dL 01/29/17 15:31 Albumin/Globulin Ratio 1.5 (1.0-1.8) 01/29/17 15:31 Triglycerides 69 mg/dL (<150) 01/30/17 03:30 Cholesterol 119 mg/dL (<200) 01/30/17 03:30 LDL Cholesterol Direct 78 mg/dL (75-193) 01/30/17 03:30 HDL Cholesterol 34 mg/dL (23-92) 01/30/17 03:30 TSH 0.15 uIU/ml (0.34-5.60) L 01/30/17 03:30 Digoxin 1.7 ng/ml (0.8-2.0) 01/29/17 15:31 - Physical Exam Vitals and I&O: Vital Signs Temp 97.6 F 02/01/17 04:00 Pulse 84 02/01/17 04:00 Resp 26 02/01/17 07:38 BP 140/69 02/01/17 04:00 Pulse Ox 97 02/01/17 07:38 Intake & Output 01/31/17 02/01/17 02/01/17 18:59 06:59 18:59 Intake Total 1500 340 Output Total 1400 800 Balance 100 340 -800 Weight (lbs) 112.037 kg 111.584 kg 111.584 kg Intake: Oral 1500 340 Output: Urine 1400 800 Active Medications: Current Medications Acetaminophen (Tylenol) 650 mg PO Q4HR PRN PRN Reason: temp >100 or mild pain Stop: 03/30/17 21:09 Albuterol Sulfate (Albuterol 2.5mg/3ml Neb Ud) 2.5 mg HHN Q4HRT [facility] Stop: 04/01/17 14:29 Last Admin: 02/01/17 07:37 Dose: 2.5 mg Amiodarone HCl (Cordarone) 200 mg PO BID AL Stop: 04/01/17 16:59 Last Admin: 01/31/17 17:29 Dose: 200 mg Aspirin (Aspirin Chewable) 81 mg PO DAILY AL Stop: 03/31/17 08:59 Last Admin: 01/31/17 09:10 Dose: 81 mg Atorvastatin Calcium (Lipitor) 10 mg PO HS AL PRN Reason: Protocol Stop: 03/31/17 20:59 Last Admin: 01/31/17 20:53 Dose: 10 mg Benztropine Mesylate (Cogentin) 1 mg PO BID [facility] Stop: 03/31/17 08:59 Last Admin: 01/31/17 17:29 Dose: 1 mg Bisacodyl (Dulcolax 10 Mg Supp) 10 mg RC DAILY PRN PRN Reason: if MOM ineffective Stop: 03/30/17 21:09 Clonazepam (Klonopin) 1 mg PO BID AL PRN Reason: Protocol Stop: 04/01/17 21:44 Last Admin: 02/01/17 00:18 Dose: Not Given Dextrose (D50w) 25 ml IVP PRN PRN PRN Reason: BS BELOW 70 & NPO Stop: 03/30/17 21:14 Digoxin (Lanoxin) 0.25 mg PO DAILY [facility] Stop: 03/31/17 08:59 Last Admin: 01/31/17 09:09 Dose: 0.25 mg Docusate Sodium (Colace) 100 mg PO BID [facility] Stop: 03/31/17 08:59 Last Admin: 01/31/17 17:28 Dose: 100 mg Escitalopram Oxalate (Lexapro) 60 mg PO DAILY AL PRN Reason: Protocol Stop: 03/31/17 08:59 Last Admin: 01/31/17 09:21 Dose: 60 mg Ferrous Sulfate (Iron) 325 mg PO BID [facility] Stop: 03/31/17 08:59 Last Admin: 01/31/17 17:28 Dose: 325 mg Gabapentin (Neurontin) 300 mg PO TID [facility] Stop: 03/31/17 08:59 Last Admin: 01/31/17 20:51 Dose: 300 mg Hydromorphone HCl (Dilaudid) 1 mg IVP Q4HR PRN PRN Reason: Severe Pain Stop: 03/30/17 21:09 Last Admin: 02/01/17 07:08 Dose: 1 mg Levofloxacin (Levaquin Pb) 500 mg in 100 mls @ 100 mls/hr IV Q24HR AL Stop: 03/31/17 20:59 Last Admin: 01/31/17 21:07 Dose: 100 mls/hr Insulin Aspart (Novolog Insulin Sliding Scale) 0 units SUBQ ACHS AL PRN Reason: Protocol Stop: 03/30/17 07:29 Last Admin: 02/01/17 07:02 Dose: 4 units Insulin Detemir (Levemir Insulin) 20 units SUBQ HS AL PRN Reason: Protocol Stop: 03/30/17 20:59 Last Admin: 01/31/17 20:53 Dose: 20 units Lactobacillus Rhamnosus (Culturelle) 1 each PO DAILY [facility] Stop: 04/02/17 08:59 Lidocaine (Lidoderm 5% Patch) 1 patch TD DAILY AL Stop: 04/01/17 08:59 Last Admin: 01/31/17 09:21 Dose: 1 patch Lisinopril (Zestril) 10 mg PO Q12H AL Stop: 03/30/17 22:59 Last Admin: 02/01/17 00:17 Dose: 10 mg Magnesium Hydroxide (Milk Of Magnesia) 30 ml PO DAILY PRN PRN Reason: if no BM x2 days Stop: 03/30/17 21:09 Magnesium Oxide (Mag-Oxide) 400 mg PO DAILY AL Stop: 03/31/17 08:59 Last Admin: 01/31/17 09:00 Dose: 400 mg Methylprednisolone Sodium Succinate (Solu-Medrol) 80 mg IVP Q6HR AL Stop: 03/31/17 17:59 Last Admin: 02/01/17 05:37 Dose: 80 mg Metoprolol Tartrate (Lopressor) 25 mg PO Q12H AL Stop: 03/30/17 22:58 Last Admin: 02/01/17 00:17 Dose: 25 mg Miscellaneous (Indacaterol/Glycopyrrolate [Utibron Neohaler 27.5-15.6 Mcg]) 1 each IH Q12H AL Stop: 03/30/17 21:14 Miscellaneous (Probiotic Screen) 1 ea MC PRN PRN PRN Reason: PROTOCOL Stop: 04/01/17 09:29 Ondansetron HCl (Zofran) 4 mg IV Q6H PRN PRN Reason: Nausea / Vomiting Stop: 03/30/17 21:10 Pantoprazole Sodium (Protonix) 40 mg PO AC AL Stop: 03/31/17 07:29 Last Admin: 02/01/17 07:03 Dose: 40 mg Promethazine HCl/Codeine (Phenergan W/Cod Susp) 5 ml PO Q4H PRN PRN Reason: Cough Stop: 03/31/17 18:56 Risperidone (Risperdal) 3 mg PO BID AL PRN Reason: Protocol Stop: 03/31/17 08:59 Last Admin: 01/31/17 17:28 Dose: 3 mg Sodium Phosphate (Fleet Enema) 135 ml RC DAILY PRN PRN Reason: if MOM or dulcolax ineffective Stop: 03/30/17 21:09 Spironolactone (Aldactone) 25 mg PO DAILY AL Stop: 03/31/17 08:59 Last Admin: 01/31/17 09:11 Dose: 25 mg Terazosin HCl (Hytrin) 5 mg PO HS AL Stop: 03/31/17 20:59 Last Admin: 01/31/17 20:51 Dose: 5 mg Assessment/Plan - Problem List Patient Problems: All Active Problems Diastolic CHF, acute on chronic (Acute) I50.33 H/O CHF (Acute) Z86.79 H/O cardiomyopathy (Acute) Z86.79 H/O diabetes mellitus (Acute) Z86.39 HTN (hypertension) (Acute) I10 h/o diastolic heart failure (Acute) intracticular fracture of the humeral he (Acute) Nutritional Asmnt/Malnutr-PDOC - Dietary Evaluation Malnutrition Findings (Please click <Entered> for more info): Nutritional Asmnt/Malnutrition Start: 01/31/17 11: 57 Text: Status: Complete Freq: Document 01/31/17 11:57 [facility] (Rec: 01/31/17 12:27 [id number]) Nutritional Asmnt/Malnutrition Patient General Information Nutritional Screening Consult Diagnosis Acute exacerbation of COPD Pertinent Medical Hx/Surgical Hx Underlying psychosis, severe peripheral neuropathy, HTN, DM , asthma, COPD, dyslipidemia, peptic ulcer disease, atrial fibillation, pacemaker placement. Subjective Information Nutrition Consult for BG 236 received and completed. Pt is a 51-year-old male admitted with chief complaint of increasing cough and increasing shortness of breath . Pt was awake and alert during time of visit. No muscle or fat depletion assessed. Pt reports having an "okay" appetite, eating three meals a day that his SNF prepares. RD offered diet education but pt declined at this time. Poor oral hygiene observed. Current Diet Order/ Nutrition Support CCHO-60 GM Patient / S.O Can Pertinent Medications Lipitor, Colace, Iron, Dilaudid, Novolog, Levemir, Levaquin, Mag-Oxide, Protonix, Risperdal Pertinent Labs (01/29) A1C 7H (01/31) Na 131L, BUN 32H, Glucose (fasting) 204H, POC Glucose 311H Nutritional Hx/Data Height 1.73 m Height (Calculated Centimeters) 172.7 Current Weight (lbs) 112.037 kg Weight (Calculated Kilograms) 112.0 Weight (Calculated Grams) 329930.3 Usual body Weight (lbs) 240 % Usual Body Weight 103 [place] Body Weight 154 % [place] Body Weight 156 Recent Weight Change No Weight Status Obese GI Symptoms GI Symptoms None Last BM Food Allergies No Cultural/Ethnic/Holiness Belief No preferences provided. Usual diet at home Low salt, low fat, low sugar Skin Integrity/Comment: Apolinar 20. No skin breakdown. Current %PO Fair (50-74%) Estimated Nutritional Goals BEE in Kcals: Adj wt of IBW Calories/Kcals/Kg Based on IBW 70 kg with consideration of COPD exacerbation Kcals Calculated 2125-1110 kcals/day (30-35 kcals/kg) Protein: Adj wt of IBW Protein g/kg: Based on IBW 70 kg with consideration of COPD exacerbation Protein Calculated 91-140 gm/day (1.3-2 gm/kg) Fluid: ml 2739-5649 ml/day (1 ml/kcal) or per MD/DO Nutritional Problem 1. Problem Problem Altered-nutrition related laboratory values related to Etiology possible endocrine dysfunction or respiratory distress as evidenced by` Signs/Symptoms: fasting glucose 204 mg/dl on . Malnutrition Alert Protein-Calorie Malnutrition N/A Is there a minimum of two criteria No selected? Query Text:Check all the applicable criteria. A minimum of two criteria are recommended for diagnosis of either severe or non-severe malnutrition. Malnutrition Related to Morbid Obesity Malnutrition related to morbid obesity No Intervention/Recommendation Recommendations by RD Increase Calorie Intake Comments 1. Recommend increase diet to CCHO-75 gm to better meet estimated nutritional needs. 2. Pt declined nutrition education at this time. Expected Outcomes/Goals Expected Outcomes/Goals Blood glucose will trend towards desired parameters. Physician Parameters for PEM Serum Albumin (g/dl) 3.5 - 5.0 (Normal)
[2017-02-01] MEDS: Aspirin 81mg Chewable Tab PO SCH (08:24)
[2017-02-01] MEDS: Lactobacillus Rhamnosus 10 Billion CFU Capsule PO SCH (08:27)
[2017-02-01] MEDS: Benztropine 1 MG TAB PO SCH ×2 (08:27→16:39)
[2017-02-01] MEDS: Ferrous Sulfate 325 MG TAB PO SCH ×2 (08:27→16:39)
[2017-02-01] MEDS: Lidocaine 5% Patch TD SCH (08:42)
[2017-02-01 15:28] LABS: pH 7.33 (7.35-7.45)
[2017-02-01 15:30] LABS: ABG SOURCE Arterial; ALLEN TEST Positive; BE(B) 8.1 mEq/L (-3.0-3.0); FIO2 32; HCO3 31.1 mEq/L (20.0-26.0)
[2017-02-01] MEDS: Levofloxacin 500mg/100mL Premix Bag IV SCH (20:26)
[2017-02-01] MEDS: Insulin Detemir 100 units/mL 10mL Vial SUBQ SCH (20:27)
[2017-02-01] MEDS: Atorvastatin Calcium 10 MG TAB PO SCH (20:28)
[2017-02-02] MEDS: Albuterol Nebulizer 2.5mg/3mL HHN SCH ×6 (02:46→23:22)
[2017-02-02] MEDS: methylPREDNISolone SS 40 mg Vial IVP SCH ×3 (06:03→18:27)
[2017-02-02] MEDS: INSULIN ASPART SLIDING SCALE 100 UNITS/ML UNIT SUBQ SCH ×4 (06:51→22:22)
[2017-02-02] MEDS: Pantoprazole 40 mg EC Tab PO SCH ×3 (06:51→18:27)
[2017-02-02] MEDS: Ferrous Sulfate 325 MG TAB PO SCH ×2 (09:50→20:54)
[2017-02-02] MEDS: Lactobacillus Rhamnosus 10 Billion CFU Capsule PO SCH (09:50)
[2017-02-02] MEDS: Aspirin 81mg Chewable Tab PO SCH (09:52)
[2017-02-02] MEDS: Benztropine 1 MG TAB PO SCH ×2 (09:52→18:27)
[2017-02-02] MEDS: Lidocaine 5% Patch TD SCH (11:42)
[2017-02-02] MEDS: HYDROmorphone 1 mg/mL 1mL Syr IVP PRN ×2 (11:47→20:56)
--- NOTE | 2017-02-02 16:20 | Internal Medicine Prog Note ---
Internal Medicine Objective - Results Result Diagrams: 01/30/17 03:30 01/31/17 06:55 Recent Labs: Laboratory Last Values WBC 6.6 Th/cmm (4.8-10.8) 01/30/17 03:30 RBC 4.58 Mil/cmm (4.30-5.70) 01/30/17 03:30 Hgb 13.9 gm/dL (13.2-17.3) 01/30/17 03:30 Hct 42.6 % (39.0-49.0) D 01/30/17 03:30 MCV 93.1 fl (80-99) 01/30/17 03:30 MCH 30.4 pg (26.0-30.0) H 01/30/17 03:30 MCHC Differential 32.7 pg (28.0-36.0) 01/30/17 03:30 RDW 12.9 % (11.5-20.0) 01/30/17 03:30 Plt Count 178 Th/cmm (150-400) 01/30/17 03:30 MPV 9.1 fl 01/30/17 03:30 Neutrophils % 69.6 % (40.0-80.0) 01/29/17 15:31 Band Neutrophils % 1 % (0-10) 01/30/17 03:30 Lymphocytes % 15.4 % (20.0-50.0) L 01/29/17 15:31 Monocytes % 11.8 % (2.0-10.0) H 01/29/17 15:31 Eosinophils % 2.4 % (0.0-5.0) 01/29/17 15:31 Basophils % 0.8 % (0.0-2.0) 01/29/17 15:31 Neutrophils (Manual) 88 % (40-80) H 01/30/17 03:30 Lymphocytes 9 % (20-50) L 01/30/17 03:30 Monocytes 2 % (2-10) 01/30/17 03:30 Specimen Source Arterial 02/01/17 15:18 Sample Site Right Radial 02/01/17 15:18 pH 7.33 (7.35-7.45) L 02/01/17 15:18 pCO2 69.0 mmHg (35.0-45.0) H* 02/01/17 15:18 pO2 66.0 mmHg (80.0-100.0) L 02/01/17 15:18 HCO3 31.1 mEq/L (20.0-26.0) H 02/01/17 15:18 Base Excess 8.1 mEq/L (-3.0-3.0) H 02/01/17 15:18 O2 Saturation 91.0 % (92.0-100.0) L 02/01/17 15:18 [place] Test Positive 02/01/17 15:18 Inspired O2 32 02/01/17 15:18 Critical Value PING 02/01/17 15:18 Sodium 131 mEq/L (136-145) L 01/31/17 06:55 Potassium 5.0 mEq/L (3.5-5.1) 01/31/17 06:55 Chloride 96 mEq/L (98-107) L 01/31/17 06:55 Carbon Dioxide 31.0 mEq/L (21.0-31.0) 01/31/17 06:55 Anion Gap 9.0 (7.0-16.0) 01/31/17 06:55 BUN 32 mg/dL (7-25) H 01/31/17 06:55 Creatinine 1.1 mg/dL (0.7-1.3) 01/31/17 06:55 Est GFR ( Amer) > 60.0 ml/min (>90) 01/31/17 06:55 Est GFR (Non-Af Amer) > 60.0 ml/min 01/31/17 06:55 BUN/Creatinine Ratio 29.1 01/31/17 06:55 Glucose 204 mg/dL (70-105) H 01/31/17 06:55 POC Glucose 350 MG/DL (70 - 105) H 02/02/17 13:25 Hemoglobin A1c % 7.0 % (4.0-6.0) H 01/29/17 15:31 Whole Bld Lactic Acid 0.59 mmol/L (0.60-1.99) L 01/29/17 15:31 Calcium 9.5 mg/dL (8.6-10.3) 01/31/17 06:55 Total Bilirubin 0.3 mg/dL (0.3-1.0) 01/29/17 15:31 AST 16 U/L (13-39) 01/29/17 15:31 ALT 8 U/L (7-52) 01/29/17 15:31 Alkaline Phosphatase 64 U/L (34-104) 01/29/17 15:31 Troponin I 0.03 ng/mL (0.01-0.05) 01/30/17 11:55 B-Natriuretic Peptide 365.0 pg/mL (5.0-100.0) H 01/31/17 06:55 Total Protein 7.1 gm/dL (6.0-8.3) 01/29/17 15:31 Albumin 4.2 gm/dL (4.2-5.5) 01/29/17 15:31 Globulin 2.9 gm/dL 01/29/17 15:31 Albumin/Globulin Ratio 1.5 (1.0-1.8) 01/29/17 15:31 Triglycerides 69 mg/dL (<150) 01/30/17 03:30 Cholesterol 119 mg/dL (<200) 01/30/17 03:30 LDL Cholesterol Direct 78 mg/dL (75-193) 01/30/17 03:30 HDL Cholesterol 34 mg/dL (23-92) 01/30/17 03:30 TSH 0.15 uIU/ml (0.34-5.60) L 01/30/17 03:30 Digoxin 1.7 ng/ml (0.8-2.0) 01/29/17 15:31 - Physical Exam Vitals and I&O: Vital Signs Temp 98.2 F 02/02/17 04:00 Pulse 96 02/02/17 15:03 Resp 20 02/02/17 15:03 BP 141/61 02/02/17 11:45 Pulse Ox 90 02/02/17 15:03 Intake & Output 02/01/17 02/02/17 02/02/17 18:59 06:59 18:59 Intake Total 1840 100 Output Total 800 1500 700 Balance -800 340 -600 Weight (lbs) 111.584 kg 111.584 kg 112.582 kg Intake: Intake, IV Amount 100 Levofloxacin 500mg/100mL 100 500 mg In 100 ml @ 100 mls/hr IV Q24HR [facility] Rx#: [id number] Oral 1740 100 Output: Urine 800 1500 700 Other: # Bowel Movements 0 Active Medications: Current Medications Acetaminophen (Tylenol) 650 mg PO Q4HR PRN PRN Reason: temp >100 or mild pain Stop: 03/30/17 21:09 Albuterol Sulfate (Albuterol 2.5mg/3ml Neb Ud) 2.5 mg HHN Q4HRT [facility] Stop: 04/01/17 14:29 Last Admin: 02/02/17 15:00 Dose: 2.5 mg Amiodarone HCl (Cordarone) 200 mg PO BID [facility] Stop: 04/01/17 16:59 Last Admin: 02/02/17 09:49 Dose: 200 mg Aspirin (Aspirin Chewable) 81 mg PO DAILY [facility] Stop: 03/31/17 08:59 Last Admin: 02/02/17 09:52 Dose: 81 mg Atorvastatin Calcium (Lipitor) 10 mg PO HS AL PRN Reason: Protocol Stop: 03/31/17 20:59 Last Admin: 02/01/17 20:28 Dose: 10 mg Benztropine Mesylate (Cogentin) 1 mg PO BID [facility] Stop: 03/31/17 08:59 Last Admin: 02/02/17 09:52 Dose: 1 mg Bisacodyl (Dulcolax 10 Mg Supp) 10 mg RC DAILY PRN PRN Reason: if MOM ineffective Stop: 03/30/17 21:09 Clonazepam (Klonopin) 1 mg PO BID AL PRN Reason: Protocol Stop: 04/01/17 21:44 Last Admin: 02/02/17 09:49 Dose: 1 mg Dextrose (D50w) 25 ml IVP PRN PRN PRN Reason: BS BELOW 70 & NPO Stop: 03/30/17 21:14 Digoxin (Lanoxin) 0.25 mg PO DAILY [facility] Stop: 03/31/17 08:59 Last Admin: 02/02/17 09:47 Dose: 0.25 mg Docusate Sodium (Colace) 100 mg PO BID [facility] Stop: 03/31/17 08:59 Last Admin: 02/02/17 09:50 Dose: 100 mg Escitalopram Oxalate (Lexapro) 60 mg PO DAILY AL PRN Reason: Protocol Stop: 03/31/17 08:59 Last Admin: 02/02/17 09:47 Dose: 60 mg Ferrous Sulfate (Iron) 325 mg PO BID [facility] Stop: 03/31/17 08:59 Last Admin: 02/02/17 09:50 Dose: 325 mg Gabapentin (Neurontin) 300 mg PO TID [facility] Stop: 03/31/17 08:59 Last Admin: 02/02/17 09:49 Dose: 300 mg Hydromorphone HCl (Dilaudid) 1 mg IVP Q4HR PRN PRN Reason: Severe Pain Stop: 03/30/17 21:09 Last Admin: 02/02/17 11:47 Dose: 1 mg Levofloxacin (Levaquin Pb) 500 mg in 100 mls @ 100 mls/hr IV Q24HR [facility] Stop: 03/31/17 20:59 Last Infusion: 02/02/17 00:00 Dose: Infused Insulin Aspart (Novolog Insulin Sliding Scale) 0 units SUBQ ACHS AL PRN Reason: Protocol Stop: 03/30/17 07:29 Last Admin: 02/02/17 13:33 Dose: 8 units Insulin Detemir (Levemir Insulin) 20 units SUBQ HS AL PRN Reason: Protocol Stop: 03/30/17 20:59 Last Admin: 02/01/17 20:27 Dose: 20 units Lactobacillus Rhamnosus (Culturelle) 1 each PO DAILY [facility] Stop: 04/02/17 08:59 Last Admin: 02/02/17 09:50 Dose: 1 each Lidocaine (Lidoderm 5% Patch) 1 patch TD DAILY [facility] Stop: 04/01/17 08:59 Last Admin: 02/02/17 11:42 Dose: 1 patch Lisinopril (Zestril) 10 mg PO Q12H [facility] Stop: 03/30/17 22:59 Last Admin: 02/02/17 11:45 Dose: 10 mg Magnesium Hydroxide (Milk Of Magnesia) 30 ml PO DAILY PRN PRN Reason: if no BM x2 days Stop: 03/30/17 21:09 Magnesium Oxide (Mag-Oxide) 400 mg PO DAILY [facility] Stop: 03/31/17 08:59 Last Admin: 02/02/17 09:50 Dose: 400 mg Methylprednisolone Sodium Succinate (Solu-Medrol) 80 mg IVP Q6HR [facility] Stop: 03/31/17 17:59 Last Admin: 02/02/17 11:46 Dose: 80 mg Metoprolol Tartrate (Lopressor) 25 mg PO Q12H [facility] Stop: 03/30/17 22:58 Last Admin: 02/02/17 11:44 Dose: 25 mg Miscellaneous (Probiotic Screen) 1 ea MC PRN PRN PRN Reason: PROTOCOL Stop: 04/01/17 09:29 Ondansetron HCl (Zofran) 4 mg IV Q6H PRN PRN Reason: Nausea / Vomiting Stop: 03/30/17 21:10 Pantoprazole Sodium (Protonix) 40 mg PO AC [facility] Stop: 03/31/17 07:29 Last Admin: 02/02/17 11:45 Dose: 40 mg Promethazine HCl/Codeine (Phenergan W/Cod Susp) 5 ml PO Q4H PRN PRN Reason: Cough Stop: 03/31/17 18:56 Last Admin: 02/01/17 20:49 Dose: 5 ml Risperidone (Risperdal) 3 mg PO BID AL PRN Reason: Protocol Stop: 03/31/17 08:59 Last Admin: 02/02/17 09:52 Dose: 3 mg Sodium Phosphate (Fleet Enema) 135 ml RC DAILY PRN PRN Reason: if MOM or dulcolax ineffective Stop: 03/30/17 21:09 Spironolactone (Aldactone) 25 mg PO DAILY [facility] Stop: 03/31/17 08:59 Last Admin: 02/02/17 09:51 Dose: 25 mg Terazosin HCl (Hytrin) 5 mg PO HS [facility] Stop: 03/31/17 20:59 Last Admin: 02/01/17 23:57 Dose: 5 mg Nutritional Asmnt/Malnutr-PDOC - Dietary Evaluation Malnutrition Findings (Please click <Entered> for more info): Nutritional Asmnt/Malnutrition Start: 01/31/17 11: 57 Text: Status: Complete Freq: Document 01/31/17 11:57 [facility] (Rec: 01/31/17 12:27 [id number]) Nutritional Asmnt/Malnutrition Patient General Information Nutritional Screening Consult Diagnosis Acute exacerbation of COPD Pertinent Medical Hx/Surgical Hx Underlying psychosis, severe peripheral neuropathy, HTN, DM , asthma, COPD, dyslipidemia, peptic ulcer disease, atrial fibillation, pacemaker placement. Subjective Information Nutrition Consult for BG 236 received and completed. Pt is a 51-year-old male admitted with chief complaint of increasing cough and increasing shortness of breath . Pt was awake and alert during time of visit. No muscle or fat depletion assessed. Pt reports having an "okay" appetite, eating three meals a day that his SNF prepares. RD offered diet education but pt declined at this time. Poor oral hygiene observed. Current Diet Order/ Nutrition Support CCHO-60 GM Patient / S.O Can Pertinent Medications Lipitor, Colace, Iron, Dilaudid, Novolog, Levemir, Levaquin, Mag-Oxide, Protonix, Risperdal Pertinent Labs (01/29) A1C 7H (01/31) Na 131L, BUN 32H, Glucose (fasting) 204H, POC Glucose 311H Nutritional Hx/Data Height 1.73 m Height (Calculated Centimeters) 172.7 Current Weight (lbs) 112.037 kg Weight (Calculated Kilograms) 112.0 Weight (Calculated Grams) 532281.3 Usual body Weight (lbs) 240 % Usual Body Weight 103 [place] Body Weight 154 % [place] Body Weight 156 Recent Weight Change No Weight Status Obese GI Symptoms GI Symptoms None Last BM Food Allergies No Cultural/Ethnic/Yazidi Belief No preferences provided. Usual diet at home Low salt, low fat, low sugar Skin Integrity/Comment: Apolinar 20. No skin breakdown. Current %PO Fair (50-74%) Estimated Nutritional Goals BEE in Kcals: Adj wt of IBW Calories/Kcals/Kg Based on IBW 70 kg with consideration of COPD exacerbation Kcals Calculated 9126-4003 kcals/day (30-35 kcals/kg) Protein: Adj wt of IBW Protein g/kg: Based on IBW 70 kg with consideration of COPD exacerbation Protein Calculated 91-140 gm/day (1.3-2 gm/kg) Fluid: ml 4107-7032 ml/day (1 ml/kcal) or per MD/DO Nutritional Problem 1. Problem Problem Altered-nutrition related laboratory values related to Etiology possible endocrine dysfunction or respiratory distress as evidenced by` Signs/Symptoms: fasting glucose 204 mg/dl on . Malnutrition Alert Protein-Calorie Malnutrition N/A Is there a minimum of two criteria No selected? Query Text:Check all the applicable criteria. A minimum of two criteria are recommended for diagnosis of either severe or non-severe malnutrition. Malnutrition Related to Morbid Obesity Malnutrition related to morbid obesity No Intervention/Recommendation Recommendations by RD Increase Calorie Intake Comments 1. Recommend increase diet to CCHO-75 gm to better meet estimated nutritional needs. 2. Pt declined nutrition education at this time. Expected Outcomes/Goals Expected Outcomes/Goals Blood glucose will trend towards desired parameters. Physician Parameters for PEM Serum Albumin (g/dl) 3.5 - 5.0 (Normal)
[2017-02-02] MEDS: Atorvastatin Calcium 10 MG TAB PO SCH (20:55)
[2017-02-02] MEDS: Levofloxacin 500mg/100mL Premix Bag IV SCH (21:04)
[2017-02-02] MEDS: Insulin Detemir 100 units/mL 10mL Vial SUBQ SCH (22:23)
[2017-02-03] MEDS: methylPREDNISolone SS 40 mg Vial IVP SCH ×4 (00:33→17:37)
[2017-02-03] MEDS: Albuterol Nebulizer 2.5mg/3mL HHN SCH ×6 (03:24→22:51)
[2017-02-03] MEDS: INSULIN ASPART SLIDING SCALE 100 UNITS/ML UNIT SUBQ SCH ×4 (06:47→21:02)
[2017-02-03] MEDS: Pantoprazole 40 mg EC Tab PO SCH ×3 (06:48→17:38)
[2017-02-03] MEDS: HYDROmorphone 1 mg/mL 1mL Syr IVP PRN ×3 (09:05→22:23)
[2017-02-03] MEDS: Benztropine 1 MG TAB PO SCH ×2 (09:06→17:41)
[2017-02-03] MEDS: Ferrous Sulfate 325 MG TAB PO SCH ×2 (09:08→17:38)
[2017-02-03] MEDS: Lactobacillus Rhamnosus 10 Billion CFU Capsule PO SCH (09:08)
[2017-02-03] MEDS: Aspirin 81mg Chewable Tab PO SCH (09:09)
[2017-02-03] MEDS: Lidocaine 5% Patch TD SCH (09:15)
--- NOTE | 2017-02-03 13:48 | General Progress Note ---
Subjective - Review of Systems Events since last encounter: patient awake alert no distress Objective - Results Result Diagrams: 01/30/17 03:30 01/31/17 06:55 Recent Labs: Laboratory Last Values WBC 6.6 Th/cmm (4.8-10.8) 01/30/17 03:30 RBC 4.58 Mil/cmm (4.30-5.70) 01/30/17 03:30 Hgb 13.9 gm/dL (13.2-17.3) 01/30/17 03:30 Hct 42.6 % (39.0-49.0) D 01/30/17 03:30 MCV 93.1 fl (80-99) 01/30/17 03:30 MCH 30.4 pg (26.0-30.0) H 01/30/17 03:30 MCHC Differential 32.7 pg (28.0-36.0) 01/30/17 03:30 RDW 12.9 % (11.5-20.0) 01/30/17 03:30 Plt Count 178 Th/cmm (150-400) 01/30/17 03:30 MPV 9.1 fl 01/30/17 03:30 Neutrophils % 69.6 % (40.0-80.0) 01/29/17 15:31 Band Neutrophils % 1 % (0-10) 01/30/17 03:30 Lymphocytes % 15.4 % (20.0-50.0) L 01/29/17 15:31 Monocytes % 11.8 % (2.0-10.0) H 01/29/17 15:31 Eosinophils % 2.4 % (0.0-5.0) 01/29/17 15:31 Basophils % 0.8 % (0.0-2.0) 01/29/17 15:31 Neutrophils (Manual) 88 % (40-80) H 01/30/17 03:30 Lymphocytes 9 % (20-50) L 01/30/17 03:30 Monocytes 2 % (2-10) 01/30/17 03:30 Specimen Source Arterial 02/01/17 15:18 Sample Site Right Radial 02/01/17 15:18 pH 7.33 (7.35-7.45) L 02/01/17 15:18 pCO2 69.0 mmHg (35.0-45.0) H* 02/01/17 15:18 pO2 66.0 mmHg (80.0-100.0) L 02/01/17 15:18 HCO3 31.1 mEq/L (20.0-26.0) H 02/01/17 15:18 Base Excess 8.1 mEq/L (-3.0-3.0) H 02/01/17 15:18 O2 Saturation 91.0 % (92.0-100.0) L 02/01/17 15:18 [place] Test Positive 02/01/17 15:18 Inspired O2 32 02/01/17 15:18 Critical Value PING 02/01/17 15:18 Sodium 131 mEq/L (136-145) L 01/31/17 06:55 Potassium 5.0 mEq/L (3.5-5.1) 01/31/17 06:55 Chloride 96 mEq/L (98-107) L 01/31/17 06:55 Carbon Dioxide 31.0 mEq/L (21.0-31.0) 01/31/17 06:55 Anion Gap 9.0 (7.0-16.0) 01/31/17 06:55 BUN 32 mg/dL (7-25) H 01/31/17 06:55 Creatinine 1.1 mg/dL (0.7-1.3) 01/31/17 06:55 Est GFR ( Amer) > 60.0 ml/min (>90) 01/31/17 06:55 Est GFR (Non-Af Amer) > 60.0 ml/min 01/31/17 06:55 BUN/Creatinine Ratio 29.1 01/31/17 06:55 Glucose 204 mg/dL (70-105) H 01/31/17 06:55 POC Glucose 323 MG/DL (70 - 105) H 02/03/17 11:17 Hemoglobin A1c % 7.0 % (4.0-6.0) H 01/29/17 15:31 Whole Bld Lactic Acid 0.59 mmol/L (0.60-1.99) L 01/29/17 15:31 Calcium 9.5 mg/dL (8.6-10.3) 01/31/17 06:55 Total Bilirubin 0.3 mg/dL (0.3-1.0) 01/29/17 15:31 AST 16 U/L (13-39) 01/29/17 15:31 ALT 8 U/L (7-52) 01/29/17 15:31 Alkaline Phosphatase 64 U/L (34-104) 01/29/17 15:31 Troponin I 0.03 ng/mL (0.01-0.05) 01/30/17 11:55 B-Natriuretic Peptide 365.0 pg/mL (5.0-100.0) H 01/31/17 06:55 Total Protein 7.1 gm/dL (6.0-8.3) 01/29/17 15:31 Albumin 4.2 gm/dL (4.2-5.5) 01/29/17 15:31 Globulin 2.9 gm/dL 01/29/17 15:31 Albumin/Globulin Ratio 1.5 (1.0-1.8) 01/29/17 15:31 Triglycerides 69 mg/dL (<150) 01/30/17 03:30 Cholesterol 119 mg/dL (<200) 01/30/17 03:30 LDL Cholesterol Direct 78 mg/dL (75-193) 01/30/17 03:30 HDL Cholesterol 34 mg/dL (23-92) 01/30/17 03:30 TSH 0.15 uIU/ml (0.34-5.60) L 01/30/17 03:30 Digoxin 1.7 ng/ml (0.8-2.0) 01/29/17 15:31 - Physical Exam Vitals and I&O: Vital Signs Temp 97.9 F 02/03/17 04:00 Pulse 79 02/03/17 13:27 Resp 16 02/03/17 10:36 BP 114/68 02/03/17 11:42 Pulse Ox 93 02/03/17 10:36 Intake & Output 02/02/17 02/03/17 02/03/17 18:59 06:59 18:59 Intake Total 100 300 Output Total 900 Balance -800 300 Weight (lbs) 112.491 kg 111.312 kg Intake: Intake, IV Amount 100 Levofloxacin 500mg/100mL 100 500 mg In 100 ml @ 100 mls/hr IV Q24HR [facility] Rx#: [id number] Oral 100 200 Output: Urine 900 Other: # Voids 2 # Bowel Movements 0 Stool Characteristics Soft Active Medications: Current Medications Acetaminophen (Tylenol) 650 mg PO Q4HR PRN PRN Reason: temp >100 or mild pain Stop: 03/30/17 21:09 Albuterol Sulfate (Albuterol 2.5mg/3ml Neb Ud) 2.5 mg HHN Q4HRT [facility] Stop: 04/01/17 14:29 Last Admin: 02/03/17 10:34 Dose: 2.5 mg Amiodarone HCl (Cordarone) 200 mg PO BID [facility] Stop: 04/01/17 16:59 Last Admin: 02/03/17 13:27 Dose: 200 mg Aspirin (Aspirin Chewable) 81 mg PO DAILY [facility] Stop: 03/31/17 08:59 Last Admin: 02/03/17 09:09 Dose: 81 mg Atorvastatin Calcium (Lipitor) 10 mg PO HS AL PRN Reason: Protocol Stop: 03/31/17 20:59 Last Admin: 02/02/17 20:55 Dose: 10 mg Benztropine Mesylate (Cogentin) 1 mg PO BID [facility] Stop: 03/31/17 08:59 Last Admin: 02/03/17 09:06 Dose: 1 mg Bisacodyl (Dulcolax 10 Mg Supp) 10 mg RC DAILY PRN PRN Reason: if MOM ineffective Stop: 03/30/17 21:09 Clonazepam (Klonopin) 1 mg PO BID AL PRN Reason: Protocol Stop: 04/01/17 21:44 Last Admin: 02/03/17 09:08 Dose: 1 mg Dextrose (D50w) 25 ml IVP PRN PRN PRN Reason: BS BELOW 70 & NPO Stop: 03/30/17 21:14 Digoxin (Lanoxin) 0.25 mg PO DAILY [facility] Stop: 03/31/17 08:59 Last Admin: 02/03/17 09:06 Dose: 0.25 mg Docusate Sodium (Colace) 100 mg PO BID [facility] Stop: 03/31/17 08:59 Last Admin: 02/03/17 09:08 Dose: 100 mg Escitalopram Oxalate (Lexapro) 60 mg PO DAILY [facility] PRN Reason: Protocol Stop: 03/31/17 08:59 Last Admin: 02/03/17 09:06 Dose: 60 mg Ferrous Sulfate (Iron) 325 mg PO BID [facility] Stop: 03/31/17 08:59 Last Admin: 02/03/17 09:08 Dose: 325 mg Gabapentin (Neurontin) 300 mg PO TID [facility] Stop: 03/31/17 08:59 Last Admin: 02/03/17 13:27 Dose: 300 mg Hydromorphone HCl (Dilaudid) 1 mg IVP Q4HR PRN PRN Reason: Severe Pain Stop: 03/30/17 21:09 Last Admin: 02/03/17 09:05 Dose: 1 mg Levofloxacin (Levaquin Pb) 500 mg in 100 mls @ 100 mls/hr IV Q24HR [facility] Stop: 03/31/17 20:59 Last Infusion: 02/02/17 22:04 Dose: Infused Insulin Aspart (Novolog Insulin Sliding Scale) 0 units SUBQ ACHS [facility] PRN Reason: Protocol Stop: 03/30/17 07:29 Last Admin: 02/03/17 11:31 Dose: 8 units Insulin Detemir (Levemir Insulin) 20 units SUBQ HS [facility] PRN Reason: Protocol Stop: 03/30/17 20:59 Last Admin: 02/02/17 22:23 Dose: 20 units Lactobacillus Rhamnosus (Culturelle) 1 each PO DAILY [facility] Stop: 04/02/17 08:59 Last Admin: 02/03/17 09:08 Dose: 1 each Lidocaine (Lidoderm 5% Patch) 1 patch TD DAILY [facility] Stop: 04/01/17 08:59 Last Admin: 02/03/17 09:15 Dose: 1 patch Lisinopril (Zestril) 10 mg PO Q12H [facility] Stop: 03/30/17 22:59 Last Admin: 02/03/17 11:42 Dose: 10 mg Magnesium Hydroxide (Milk Of Magnesia) 30 ml PO DAILY PRN PRN Reason: if no BM x2 days Stop: 03/30/17 21:09 Magnesium Oxide (Mag-Oxide) 400 mg PO DAILY [facility] Stop: 03/31/17 08:59 Last Admin: 02/03/17 13:26 Dose: 400 mg Methylprednisolone Sodium Succinate (Solu-Medrol) 80 mg IVP Q6HR [facility] Stop: 03/31/17 17:59 Last Admin: 02/03/17 11:42 Dose: 80 mg Metoprolol Tartrate (Lopressor) 25 mg PO Q12H [facility] Stop: 03/30/17 22:58 Last Admin: 02/03/17 11:41 Dose: 25 mg Miscellaneous (Probiotic Screen) 1 ea MC PRN PRN PRN Reason: PROTOCOL Stop: 04/01/17 09:29 Ondansetron HCl (Zofran) 4 mg IV Q6H PRN PRN Reason: Nausea / Vomiting Stop: 03/30/17 21:10 Pantoprazole Sodium (Protonix) 40 mg PO AC [facility] Stop: 03/31/17 07:29 Last Admin: 02/03/17 11:41 Dose: 40 mg Promethazine HCl/Codeine (Phenergan W/Cod Susp) 5 ml PO Q4H PRN PRN Reason: Cough Stop: 03/31/17 18:56 Last Admin: 02/01/17 20:49 Dose: 5 ml Risperidone (Risperdal) 3 mg PO BID [facility] PRN Reason: Protocol Stop: 03/31/17 08:59 Last Admin: 02/03/17 09:08 Dose: 3 mg Sodium Phosphate (Fleet Enema) 135 ml RC DAILY PRN PRN Reason: if MOM or dulcolax ineffective Stop: 03/30/17 21:09 Spironolactone (Aldactone) 25 mg PO DAILY [facility] Stop: 03/31/17 08:59 Last Admin: 02/03/17 09:09 Dose: 25 mg Terazosin HCl (Hytrin) 5 mg PO HS [facility] Stop: 03/31/17 20:59 Last Admin: 02/02/17 20:55 Dose: 5 mg Assessment/Plan - Problem List Patient Problems: All Active Problems Diastolic CHF, acute on chronic (Acute) I50.33 H/O CHF (Acute) Z86.79 H/O cardiomyopathy (Acute) Z86.79 H/O diabetes mellitus (Acute) Z86.39 HTN (hypertension) (Acute) I10 h/o diastolic heart failure (Acute) intracticular fracture of the humeral he (Acute) Nutritional Asmnt/Malnutr-PDOC - Dietary Evaluation Malnutrition Findings (Please click <Entered> for more info): Nutritional Asmnt/Malnutrition Start: 01/31/17 11: 57 Text: Status: Complete Freq: Document 01/31/17 11:57 [email or web address] (Rec: 01/31/17 12:27 [id number]) Nutritional Asmnt/Malnutrition Patient General Information Nutritional Screening Consult Diagnosis Acute exacerbation of COPD Pertinent Medical Hx/Surgical Hx Underlying psychosis, severe peripheral neuropathy, HTN, DM , asthma, COPD, dyslipidemia, peptic ulcer disease, atrial fibillation, pacemaker placement. Subjective Information Nutrition Consult for BG 236 received and completed. Pt is a 51-year-old male admitted with chief complaint of increasing cough and increasing shortness of breath . Pt was awake and alert during time of visit. No muscle or fat depletion assessed. Pt reports having an "okay" appetite, eating three meals a day that his SNF prepares. RD offered diet education but pt declined at this time. Poor oral hygiene observed. Current Diet Order/ Nutrition Support CCHO-60 GM Patient / S.O Can Pertinent Medications Lipitor, Colace, Iron, Dilaudid, Novolog, Levemir, Levaquin, Mag-Oxide, Protonix, Risperdal Pertinent Labs (01/29) A1C 7H (01/31) Na 131L, BUN 32H, Glucose (fasting) 204H, POC Glucose 311H Nutritional Hx/Data Height 1.73 m Height (Calculated Centimeters) 172.7 Current Weight (lbs) 112.037 kg Weight (Calculated Kilograms) 112.0 Weight (Calculated Grams) 652478.3 Usual body Weight (lbs) 240 % Usual Body Weight 103 [place] Body Weight 154 % [place] Body Weight 156 Recent Weight Change No Weight Status Obese GI Symptoms GI Symptoms None Last BM Food Allergies No Cultural/Ethnic/Zoroastrian Belief No preferences provided. Usual diet at home Low salt, low fat, low sugar Skin Integrity/Comment: Apolinar 20. No skin breakdown. Current %PO Fair (50-74%) Estimated Nutritional Goals BEE in Kcals: Adj wt of IBW Calories/Kcals/Kg Based on IBW 70 kg with consideration of COPD exacerbation Kcals Calculated 6277-7962 kcals/day (30-35 kcals/kg) Protein: Adj wt of IBW Protein g/kg: Based on IBW 70 kg with consideration of COPD exacerbation Protein Calculated 91-140 gm/day (1.3-2 gm/kg) Fluid: ml 1290-3658 ml/day (1 ml/kcal) or per MD/DO Nutritional Problem 1. Problem Problem Altered-nutrition related laboratory values related to Etiology possible endocrine dysfunction or respiratory distress as evidenced by` Signs/Symptoms: fasting glucose 204 mg/dl on . Malnutrition Alert Protein-Calorie Malnutrition N/A Is there a minimum of two criteria No selected? Query Text:Check all the applicable criteria. A minimum of two criteria are recommended for diagnosis of either severe or non-severe malnutrition. Malnutrition Related to Morbid Obesity Malnutrition related to morbid obesity No Intervention/Recommendation Recommendations by RD Increase Calorie Intake Comments 1. Recommend increase diet to CCHO-75 gm to better meet estimated nutritional needs. 2. Pt declined nutrition education at this time. Expected Outcomes/Goals Expected Outcomes/Goals Blood glucose will trend towards desired parameters. Physician Parameters for PEM Serum Albumin (g/dl) 3.5 - 5.0 (Normal)
[2017-02-03] MEDS: Insulin Detemir 100 units/mL 10mL Vial SUBQ SCH (21:01)
[2017-02-03] MEDS: Atorvastatin Calcium 10 MG TAB PO SCH (21:01)
[2017-02-03] MEDS: Levofloxacin 500mg/100mL Premix Bag IV SCH (21:02)
[2017-02-04] MEDS: methylPREDNISolone SS 40 mg Vial IVP SCH ×5 (00:31→23:23)
[2017-02-04] MEDS: Albuterol Nebulizer 2.5mg/3mL HHN SCH ×5 (02:36→22:35)
[2017-02-04 07:18] LABS: HEMATOCRIT 40.5 % (39.0-49.0); HEMOGLOBIN 13.4 gm/dL (13.2-17.3); MEAN CELL VOLUME 92.6 fl (80-99); MEAN CORPUSCULAR HEMOGLOBIN 30.7 pg (26.0-30.0); MEAN CORPUSCULAR HGB CONC 33.1 pg (28.0-36.0); MEAN PLATELET VOLUME 8.9 fl; PLATELET COUNT 147 Th/cmm (150-400); RED BLOOD COUNT 4.37 Mil/cmm (4.30-5.70); RED CELL DISTRIBUTION WIDTH 13.1 % (11.5-20.0); WHITE BLOOD COUNT 6.5 Th/cmm (4.8-10.8)
[2017-02-04 07:44] LABS: ALB/GLOB RATIO 1.4 (1.0-1.8); ALKALINE PHOSPHATASE 41 U/L (34-104); ANION GAP 6.8 (7.0-16.0); BILIRUBIN,DIRECT 0.12 mg/dL (0.0-0.2); BILIRUBIN,TOTAL 0.5 mg/dL (0.3-1.0); BUN - UREA NITROGEN 60 mg/dL (7-25); CALCIUM SERUM 8.9 mg/dL (8.6-10.3); CARBON DIOXIDE 32.4 mEq/L (21.0-31.0); CHLORIDE 101 mEq/L (98-107); CREATININE - SERUM 1.2 mg/dL (0.7-1.3); GLUCOSE 259 mg/dL (70-105); POTASSIUM SERUM 5.2 mEq/L (3.5-5.1); SGOT 10 U/L (13-39); SGPT/ALT 10 U/L (7-52); SODIUM SERUM 135 mEq/L (136-145)
[2017-02-04 07:50] LABS: BAND NEUTROPHILE 3 % (0-10); NEUTROPHILS 88 % (40-80); TOTAL CELLS COUNTED 100
[2017-02-04 07:51] LABS: PLATELET ESTIMATE ADEQUATE (NORMAL)
--- NOTE | 2017-02-04 08:28 | Diagnostic Imaging Report ---
CHEST X-RAY: AP view INDICATION: Shortness of breath COMPARISON: 01/29/2017 FINDINGS: Improving congestive changes are noted. No focal consolidation or effusions. Left chest wall AICD stable. Heart size is normal. IMPRESSION: Improving and resolving congestive changes.
[2017-02-04] MEDS: Benztropine 1 MG TAB PO SCH ×2 (08:51→16:40)
[2017-02-04] MEDS: Aspirin 81mg Chewable Tab PO SCH (08:51)
[2017-02-04] MEDS: Ferrous Sulfate 325 MG TAB PO SCH ×2 (08:52→16:40)
[2017-02-04] MEDS: Lactobacillus Rhamnosus 10 Billion CFU Capsule PO SCH (08:53)
[2017-02-04] MEDS: Pantoprazole 40 mg EC Tab PO SCH ×3 (09:04→16:40)
[2017-02-04] MEDS: Lidocaine 5% Patch TD SCH (09:05)
[2017-02-04] MEDS: INSULIN ASPART SLIDING SCALE 100 UNITS/ML UNIT SUBQ SCH ×4 (09:06→21:44)
[2017-02-04] MEDS: HYDROmorphone 1 mg/mL 1mL Syr IVP PRN ×3 (09:08→19:43)
[2017-02-04 10:11] LABS: ABG SOURCE Arterial; BE(B) 9.2 mEq/L (-3.0-3.0); CRITICAL VALUES REPORTED BY SH; FIO2 21; HCO3 31.7 mEq/L (20.0-26.0)
--- NOTE | 2017-02-04 14:25 | General Progress Note ---
Subjective - Review of Systems Events since last encounter: patient awake ,alert no distress Objective - Results Result Diagrams: 02/04/17 06:40 02/04/17 06:40 Recent Labs: Laboratory Last Values WBC 6.5 Th/cmm (4.8-10.8) 02/04/17 06:40 RBC 4.37 Mil/cmm (4.30-5.70) 02/04/17 06:40 Hgb 13.4 gm/dL (13.2-17.3) 02/04/17 06:40 Hct 40.5 % (39.0-49.0) 02/04/17 06:40 MCV 92.6 fl (80-99) 02/04/17 06:40 MCH 30.7 pg (26.0-30.0) H 02/04/17 06:40 MCHC Differential 33.1 pg (28.0-36.0) 02/04/17 06:40 RDW 13.1 % (11.5-20.0) 02/04/17 06:40 Plt Count 147 Th/cmm (150-400) L 02/04/17 06:40 MPV 8.9 fl 02/04/17 06:40 Neutrophils % 69.6 % (40.0-80.0) 01/29/17 15:31 Band Neutrophils % 3 % (0-10) 02/04/17 06:40 Lymphocytes % 15.4 % (20.0-50.0) L 01/29/17 15:31 Monocytes % 11.8 % (2.0-10.0) H 01/29/17 15:31 Eosinophils % 2.4 % (0.0-5.0) 01/29/17 15:31 Basophils % 0.8 % (0.0-2.0) 01/29/17 15:31 Neutrophils (Manual) 88 % (40-80) H 02/04/17 06:40 Lymphocytes 5 % (20-50) L 02/04/17 06:40 Monocytes 4 % (2-10) 02/04/17 06:40 Platelet Estimate ADEQUATE (NORMAL) 02/04/17 06:40 Specimen Source Arterial 02/04/17 09:00 Sample Site RB 02/04/17 09:00 pH 7.40 (7.35-7.45) 02/04/17 09:00 pCO2 58.0 mmHg (35.0-45.0) H* 02/04/17 09:00 pO2 43.0 mmHg (80.0-100.0) L* 02/04/17 09:00 HCO3 31.7 mEq/L (20.0-26.0) H 02/04/17 09:00 Base Excess 9.2 mEq/L (-3.0-3.0) H 02/04/17 09:00 O2 Saturation 79.0 % (92.0-100.0) L 02/04/17 09:00 [place] Test NA 02/04/17 09:00 Vent Rate NA 02/04/17 09:00 Inspired O2 21 02/04/17 09:00 Tidal Volume NA 02/04/17 09:00 PEEP NA 02/04/17 09:00 Pressure (ins/psv/peep) NA 02/04/17 09:00 Critical Value SH 02/04/17 09:00 Sodium 135 mEq/L (136-145) L 02/04/17 06:40 Potassium 5.2 mEq/L (3.5-5.1) H 02/04/17 06:40 Chloride 101 mEq/L (98-107) 02/04/17 06:40 Carbon Dioxide 32.4 mEq/L (21.0-31.0) H 02/04/17 06:40 Anion Gap 6.8 (7.0-16.0) L 02/04/17 06:40 BUN 60 mg/dL (7-25) H 02/04/17 06:40 Creatinine 1.2 mg/dL (0.7-1.3) 02/04/17 06:40 Est GFR ( Amer) > 60.0 ml/min (>90) 02/04/17 06:40 Est GFR (Non-Af Amer) > 60.0 ml/min 02/04/17 06:40 BUN/Creatinine Ratio 50.0 02/04/17 06:40 Glucose 259 mg/dL (70-105) H 02/04/17 06:40 POC Glucose 258 MG/DL (70 - 105) H 02/04/17 11:49 Hemoglobin A1c % 7.0 % (4.0-6.0) H 01/29/17 15:31 Whole Bld Lactic Acid 0.59 mmol/L (0.60-1.99) L 01/29/17 15:31 Calcium 8.9 mg/dL (8.6-10.3) 02/04/17 06:40 Total Bilirubin 0.5 mg/dL (0.3-1.0) 02/04/17 06:40 Direct Bilirubin 0.12 mg/dL (0.0-0.2) 02/04/17 06:40 AST 10 U/L (13-39) L 02/04/17 06:40 ALT 10 U/L (7-52) 02/04/17 06:40 Alkaline Phosphatase 41 U/L (34-104) 02/04/17 06:40 Ammonia 58 umol/L (16-53) H 02/04/17 06:40 Troponin I 0.03 ng/mL (0.01-0.05) 01/30/17 11:55 B-Natriuretic Peptide 365.0 pg/mL (5.0-100.0) H 01/31/17 06:55 Total Protein 5.7 gm/dL (6.0-8.3) L 02/04/17 06:40 Albumin 3.3 gm/dL (4.2-5.5) L 02/04/17 06:40 Globulin 2.4 gm/dL 02/04/17 06:40 Albumin/Globulin Ratio 1.4 (1.0-1.8) 02/04/17 06:40 Triglycerides 69 mg/dL (<150) 01/30/17 03:30 Cholesterol 119 mg/dL (<200) 01/30/17 03:30 LDL Cholesterol Direct 78 mg/dL (75-193) 01/30/17 03:30 HDL Cholesterol 34 mg/dL (23-92) 01/30/17 03:30 TSH 0.15 uIU/ml (0.34-5.60) L 01/30/17 03:30 Digoxin 1.7 ng/ml (0.8-2.0) 01/29/17 15:31 - Physical Exam Vitals and I&O: Vital Signs Temp 97.4 F 02/04/17 12:00 Pulse 85 02/04/17 12:41 Resp 19 02/04/17 12:00 BP 114/71 02/04/17 12:41 Pulse Ox 97 02/04/17 12:00 Intake & Output 02/03/17 02/04/17 02/04/17 18:59 06:59 18:59 Intake Total 200 Output Total 500 Balance -300 Weight (lbs) 111.13 kg 111.13 kg Intake: Oral 200 Output: Urine 500 Other: Stool Characteristics Soft Active Medications: Current Medications Acetaminophen (Tylenol) 650 mg PO Q4HR PRN PRN Reason: temp >100 or mild pain Stop: 03/30/17 21:09 Albuterol Sulfate (Albuterol 2.5mg/3ml Neb Ud) 2.5 mg HHN Q4HRT AL Stop: 04/01/17 14:29 Last Admin: 02/04/17 10:41 Dose: 2.5 mg Amiodarone HCl (Cordarone) 200 mg PO BID [facility] Stop: 04/01/17 16:59 Last Admin: 02/04/17 08:51 Dose: 200 mg Aspirin (Aspirin Chewable) 81 mg PO DAILY [facility] Stop: 03/31/17 08:59 Last Admin: 02/04/17 08:51 Dose: 81 mg Atorvastatin Calcium (Lipitor) 10 mg PO HS AL PRN Reason: Protocol Stop: 03/31/17 20:59 Last Admin: 02/03/17 21:01 Dose: 10 mg Benztropine Mesylate (Cogentin) 1 mg PO BID [facility] Stop: 03/31/17 08:59 Last Admin: 02/04/17 08:51 Dose: 1 mg Bisacodyl (Dulcolax 10 Mg Supp) 10 mg RC DAILY PRN PRN Reason: if MOM ineffective Stop: 03/30/17 21:09 Clonazepam (Klonopin) 1 mg PO BID AL PRN Reason: Protocol Stop: 04/01/17 21:44 Last Admin: 02/04/17 08:51 Dose: 1 mg Dextrose (D50w) 25 ml IVP PRN PRN PRN Reason: BS BELOW 70 & NPO Stop: 03/30/17 21:14 Digoxin (Lanoxin) 0.25 mg PO DAILY [facility] Stop: 03/31/17 08:59 Last Admin: 02/04/17 08:50 Dose: 0.25 mg Docusate Sodium (Colace) 100 mg PO BID [facility] Stop: 03/31/17 08:59 Last Admin: 02/04/17 08:52 Dose: 100 mg Escitalopram Oxalate (Lexapro) 60 mg PO DAILY AL PRN Reason: Protocol Stop: 03/31/17 08:59 Last Admin: 02/04/17 09:04 Dose: 60 mg Ferrous Sulfate (Iron) 325 mg PO BID AL Stop: 03/31/17 08:59 Last Admin: 02/04/17 08:52 Dose: 325 mg Gabapentin (Neurontin) 300 mg PO TID AL Stop: 03/31/17 08:59 Last Admin: 02/04/17 08:52 Dose: 300 mg Hydromorphone HCl (Dilaudid) 1 mg IVP Q4HR PRN PRN Reason: Severe Pain Stop: 03/30/17 21:09 Last Admin: 02/04/17 09:08 Dose: 1 mg Insulin Aspart (Novolog Insulin Sliding Scale) 0 units SUBQ ACHS AL PRN Reason: Protocol Stop: 03/30/17 07:29 Last Admin: 02/04/17 12:02 Dose: 6 units Insulin Detemir (Levemir Insulin) 20 units SUBQ HS AL PRN Reason: Protocol Stop: 03/30/17 20:59 Last Admin: 02/03/17 21:01 Dose: 20 units Lactobacillus Rhamnosus (Culturelle) 1 each PO DAILY [facility] Stop: 04/02/17 08:59 Last Admin: 02/04/17 08:53 Dose: 1 each Lidocaine (Lidoderm 5% Patch) 1 patch TD DAILY [facility] Stop: 04/01/17 08:59 Last Admin: 02/04/17 09:05 Dose: 1 patch Lisinopril (Zestril) 10 mg PO Q12H [facility] Stop: 03/30/17 22:59 Last Admin: 02/04/17 12:40 Dose: 10 mg Magnesium Hydroxide (Milk Of Magnesia) 30 ml PO DAILY PRN PRN Reason: if no BM x2 days Stop: 03/30/17 21:09 Magnesium Oxide (Mag-Oxide) 400 mg PO DAILY [facility] Stop: 03/31/17 08:59 Last Admin: 02/04/17 08:51 Dose: 400 mg Methylprednisolone Sodium Succinate (Solu-Medrol) 80 mg IVP Q6HR AL Stop: 03/31/17 17:59 Last Admin: 02/04/17 12:40 Dose: 80 mg Metoprolol Tartrate (Lopressor) 25 mg PO Q12H AL Stop: 03/30/17 22:58 Last Admin: 02/04/17 12:41 Dose: 25 mg Miscellaneous (Probiotic Screen) 1 ea MC PRN PRN PRN Reason: PROTOCOL Stop: 04/01/17 09:29 Ondansetron HCl (Zofran) 4 mg IV Q6H PRN PRN Reason: Nausea / Vomiting Stop: 03/30/17 21:10 Pantoprazole Sodium (Protonix) 40 mg PO AC [facility] Stop: 03/31/17 07:29 Last Admin: 02/04/17 12:40 Dose: 40 mg Promethazine HCl/Codeine (Phenergan W/Cod Susp) 5 ml PO Q4H PRN PRN Reason: Cough Stop: 03/31/17 18:56 Last Admin: 02/01/17 20:49 Dose: 5 ml Risperidone (Risperdal) 3 mg PO BID AL PRN Reason: Protocol Stop: 03/31/17 08:59 Last Admin: 02/04/17 08:53 Dose: 3 mg Sodium Phosphate (Fleet Enema) 135 ml RC DAILY PRN PRN Reason: if MOM or dulcolax ineffective Stop: 03/30/17 21:09 Spironolactone (Aldactone) 25 mg PO DAILY [facility] Stop: 03/31/17 08:59 Last Admin: 02/04/17 08:54 Dose: 25 mg Terazosin HCl (Hytrin) 5 mg PO HS [facility] Stop: 03/31/17 20:59 Last Admin: 02/03/17 21:00 Dose: 5 mg Assessment/Plan - Problem List Patient Problems: All Active Problems Diastolic CHF, acute on chronic (Acute) I50.33 H/O CHF (Acute) Z86.79 H/O cardiomyopathy (Acute) Z86.79 H/O diabetes mellitus (Acute) Z86.39 HTN (hypertension) (Acute) I10 h/o diastolic heart failure (Acute) intracticular fracture of the humeral he (Acute) Nutritional Asmnt/Malnutr-PDOC - Dietary Evaluation Malnutrition Findings (Please click <Entered> for more info): Nutritional Asmnt/Malnutrition Start: 01/31/17 11: 57 Text: Status: Complete Freq: Document 01/31/17 11:57 [facility] (Rec: 01/31/17 12:27 [id number]) Nutritional Asmnt/Malnutrition Patient General Information Nutritional Screening Consult Diagnosis Acute exacerbation of COPD Pertinent Medical Hx/Surgical Hx Underlying psychosis, severe peripheral neuropathy, HTN, DM , asthma, COPD, dyslipidemia, peptic ulcer disease, atrial fibillation, pacemaker placement. Subjective Information Nutrition Consult for BG 236 received and completed. Pt is a 51-year-old male admitted with chief complaint of increasing cough and increasing shortness of breath . Pt was awake and alert during time of visit. No muscle or fat depletion assessed. Pt reports having an "okay" appetite, eating three meals a day that his SNF prepares. RD offered diet education but pt declined at this time. Poor oral hygiene observed. Current Diet Order/ Nutrition Support CCHO-60 GM Patient / S.O Can Pertinent Medications Lipitor, Colace, Iron, Dilaudid, Novolog, Levemir, Levaquin, Mag-Oxide, Protonix, Risperdal Pertinent Labs (01/29) A1C 7H (01/31) Na 131L, BUN 32H, Glucose (fasting) 204H, POC Glucose 311H Nutritional Hx/Data Height 1.73 m Height (Calculated Centimeters) 172.7 Current Weight (lbs) 112.037 kg Weight (Calculated Kilograms) 112.0 Weight (Calculated Grams) 896483.3 Usual body Weight (lbs) 240 % Usual Body Weight 103 [place] Body Weight 154 % [place] Body Weight 156 Recent Weight Change No Weight Status Obese GI Symptoms GI Symptoms None Last BM Food Allergies No Cultural/Ethnic/Hindu Belief No preferences provided. Usual diet at home Low salt, low fat, low sugar Skin Integrity/Comment: Apolinar 20. No skin breakdown. Current %PO Fair (50-74%) Estimated Nutritional Goals BEE in Kcals: Adj wt of IBW Calories/Kcals/Kg Based on IBW 70 kg with consideration of COPD exacerbation Kcals Calculated 6058-9214 kcals/day (30-35 kcals/kg) Protein: Adj wt of IBW Protein g/kg: Based on IBW 70 kg with consideration of COPD exacerbation Protein Calculated 91-140 gm/day (1.3-2 gm/kg) Fluid: ml 1781-1447 ml/day (1 ml/kcal) or per MD/DO Nutritional Problem 1. Problem Problem Altered-nutrition related laboratory values related to Etiology possible endocrine dysfunction or respiratory distress as evidenced by` Signs/Symptoms: fasting glucose 204 mg/dl on . Malnutrition Alert Protein-Calorie Malnutrition N/A Is there a minimum of two criteria No selected? Query Text:Check all the applicable criteria. A minimum of two criteria are recommended for diagnosis of either severe or non-severe malnutrition. Malnutrition Related to Morbid Obesity Malnutrition related to morbid obesity No Intervention/Recommendation Recommendations by RD Increase Calorie Intake Comments 1. Recommend increase diet to CCHO-75 gm to better meet estimated nutritional needs. 2. Pt declined nutrition education at this time. Expected Outcomes/Goals Expected Outcomes/Goals Blood glucose will trend towards desired parameters. Physician Parameters for PEM Serum Albumin (g/dl) 3.5 - 5.0 (Normal)
--- NOTE | 2017-02-04 15:42 | Progress Notes ---
DATE: 02/03/2017 PROBLEM LIST: 1. Persistent respiratory failure 2. Suspect obstructive sleep apnea syndrome. 3. 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 4. Suspected associated obstructive sleep apnea syndrome, possibly underlying diastolic dysfunction. SYMPTOMS: Nil, feeling okay, offers no specific new symptoms. PHYSICAL EXAMINATION: VITAL SIGNS: The patient's temperature is 99. Pulse is 78. Blood pressure 114/68. Saturation is 89% on room air. NECK: Veins not visualized. CHEST: Shows diminished air entry. No other adventitious breath sounds. HEART: Regular. LABORATORY DATA: Sugar is still on the higher side. ASSESSMENT: 1. The patient is clinically stable with persistent respiratory failure, multifactorial, obesity. 2. Obstructive sleep apnea syndrome as well as underlying diastolic dysfunction. PLANS AND SUGGESTIONS: We will go ahead and continue current treatment, nocturnal BiPAP. We will repeat ABG 1 liter of oxygen as well as get chest x-ray and go from there. JOB# [id number]
[2017-02-04] MEDS: Atorvastatin Calcium 10 MG TAB PO SCH (21:08)
[2017-02-04] MEDS: Insulin Detemir 100 units/mL 10mL Vial SUBQ SCH (21:43)
[2017-02-05] MEDS: Albuterol Nebulizer 2.5mg/3mL HHN SCH ×5 (03:16→19:28)
[2017-02-05] MEDS: HYDROmorphone 1 mg/mL 1mL Syr IVP PRN ×5 (03:27→20:38)
[2017-02-05] MEDS: Pantoprazole 40 mg EC Tab PO SCH ×3 (06:52→17:43)
[2017-02-05] MEDS: methylPREDNISolone SS 40 mg Vial IVP SCH ×3 (06:52→17:39)
[2017-02-05] MEDS: Budesonide 0.5 Mg/2 mL Ud HHN SCH ×2 (07:06→19:28)
[2017-02-05] MEDS: INSULIN ASPART SLIDING SCALE 100 UNITS/ML UNIT SUBQ SCH ×4 (07:34→20:51)
[2017-02-05] MEDS: Lidocaine 5% Patch TD SCH (08:50)
[2017-02-05] MEDS: Ferrous Sulfate 325 MG TAB PO SCH ×2 (08:52→17:39)
[2017-02-05] MEDS: Benztropine 1 MG TAB PO SCH ×2 (08:53→17:30)
[2017-02-05] MEDS: Lactobacillus Rhamnosus 10 Billion CFU Capsule PO SCH (08:53)
[2017-02-05] MEDS: Aspirin 81mg Chewable Tab PO SCH (08:54)
--- NOTE | 2017-02-05 14:15 | General Progress Note ---
Subjective - Review of Systems Events since last encounter: patient in no acute distress Objective - Results Result Diagrams: 02/04/17 06:40 02/04/17 06:40 Recent Labs: Laboratory Last Values WBC 6.5 Th/cmm (4.8-10.8) 02/04/17 06:40 RBC 4.37 Mil/cmm (4.30-5.70) 02/04/17 06:40 Hgb 13.4 gm/dL (13.2-17.3) 02/04/17 06:40 Hct 40.5 % (39.0-49.0) 02/04/17 06:40 MCV 92.6 fl (80-99) 02/04/17 06:40 MCH 30.7 pg (26.0-30.0) H 02/04/17 06:40 MCHC Differential 33.1 pg (28.0-36.0) 02/04/17 06:40 RDW 13.1 % (11.5-20.0) 02/04/17 06:40 Plt Count 147 Th/cmm (150-400) L 02/04/17 06:40 MPV 8.9 fl 02/04/17 06:40 Neutrophils % 69.6 % (40.0-80.0) 01/29/17 15:31 Band Neutrophils % 3 % (0-10) 02/04/17 06:40 Lymphocytes % 15.4 % (20.0-50.0) L 01/29/17 15:31 Monocytes % 11.8 % (2.0-10.0) H 01/29/17 15:31 Eosinophils % 2.4 % (0.0-5.0) 01/29/17 15:31 Basophils % 0.8 % (0.0-2.0) 01/29/17 15:31 Neutrophils (Manual) 88 % (40-80) H 02/04/17 06:40 Lymphocytes 5 % (20-50) L 02/04/17 06:40 Monocytes 4 % (2-10) 02/04/17 06:40 Platelet Estimate ADEQUATE (NORMAL) 02/04/17 06:40 Specimen Source Arterial 02/04/17 09:00 Sample Site RB 02/04/17 09:00 pH 7.40 (7.35-7.45) 02/04/17 09:00 pCO2 58.0 mmHg (35.0-45.0) H* 02/04/17 09:00 pO2 43.0 mmHg (80.0-100.0) L* 02/04/17 09:00 HCO3 31.7 mEq/L (20.0-26.0) H 02/04/17 09:00 Base Excess 9.2 mEq/L (-3.0-3.0) H 02/04/17 09:00 O2 Saturation 79.0 % (92.0-100.0) L 02/04/17 09:00 [place] Test NA 02/04/17 09:00 Vent Rate NA 02/04/17 09:00 Inspired O2 21 02/04/17 09:00 Tidal Volume NA 02/04/17 09:00 PEEP NA 02/04/17 09:00 Pressure (ins/psv/peep) NA 02/04/17 09:00 Critical Value SH 02/04/17 09:00 Sodium 135 mEq/L (136-145) L 02/04/17 06:40 Potassium 5.2 mEq/L (3.5-5.1) H 02/04/17 06:40 Chloride 101 mEq/L (98-107) 02/04/17 06:40 Carbon Dioxide 32.4 mEq/L (21.0-31.0) H 02/04/17 06:40 Anion Gap 6.8 (7.0-16.0) L 02/04/17 06:40 BUN 60 mg/dL (7-25) H 02/04/17 06:40 Creatinine 1.2 mg/dL (0.7-1.3) 02/04/17 06:40 Est GFR ( Amer) > 60.0 ml/min (>90) 02/04/17 06:40 Est GFR (Non-Af Amer) > 60.0 ml/min 02/04/17 06:40 BUN/Creatinine Ratio 50.0 02/04/17 06:40 Glucose 259 mg/dL (70-105) H 02/04/17 06:40 POC Glucose 330 MG/DL (70 - 105) H 02/05/17 12:05 Hemoglobin A1c % 7.0 % (4.0-6.0) H 01/29/17 15:31 Whole Bld Lactic Acid 0.59 mmol/L (0.60-1.99) L 01/29/17 15:31 Calcium 8.9 mg/dL (8.6-10.3) 02/04/17 06:40 Total Bilirubin 0.5 mg/dL (0.3-1.0) 02/04/17 06:40 Direct Bilirubin 0.12 mg/dL (0.0-0.2) 02/04/17 06:40 AST 10 U/L (13-39) L 02/04/17 06:40 ALT 10 U/L (7-52) 02/04/17 06:40 Alkaline Phosphatase 41 U/L (34-104) 02/04/17 06:40 Ammonia 58 umol/L (16-53) H 02/04/17 06:40 Troponin I 0.03 ng/mL (0.01-0.05) 01/30/17 11:55 B-Natriuretic Peptide 365.0 pg/mL (5.0-100.0) H 01/31/17 06:55 Total Protein 5.7 gm/dL (6.0-8.3) L 02/04/17 06:40 Albumin 3.3 gm/dL (4.2-5.5) L 02/04/17 06:40 Globulin 2.4 gm/dL 02/04/17 06:40 Albumin/Globulin Ratio 1.4 (1.0-1.8) 02/04/17 06:40 Triglycerides 69 mg/dL (<150) 01/30/17 03:30 Cholesterol 119 mg/dL (<200) 01/30/17 03:30 LDL Cholesterol Direct 78 mg/dL (75-193) 01/30/17 03:30 HDL Cholesterol 34 mg/dL (23-92) 01/30/17 03:30 TSH 0.15 uIU/ml (0.34-5.60) L 01/30/17 03:30 Digoxin 1.7 ng/ml (0.8-2.0) 01/29/17 15:31 - Physical Exam Vitals and I&O: Vital Signs Temp 97.8 F 02/05/17 12:00 Pulse 84 02/05/17 12:00 Resp 20 02/05/17 12:00 BP 135/79 02/05/17 12:00 Pulse Ox 91 02/05/17 12:00 Intake & Output 02/04/17 02/05/17 02/05/17 18:59 06:59 18:59 Intake Total 1200 Output Total 1200 Balance 0 Weight (lbs) 111.13 kg 111.13 kg Intake: Oral 1200 Output: Urine 1200 Other: # Voids 2 # Bowel Movements 1 Active Medications: Current Medications Acetaminophen (Tylenol) 650 mg PO Q4HR PRN PRN Reason: temp >100 or mild pain Stop: 03/30/17 21:09 Albuterol Sulfate (Albuterol 2.5mg/3ml Neb Ud) 2.5 mg HHN Q4HRT ON LICENSE OF [facility] Stop: 04/01/17 14:29 Last Admin: 02/05/17 11:36 Dose: 2.5 mg Amiodarone HCl (Cordarone) 200 mg PO BID [facility] Stop: 04/01/17 16:59 Last Admin: 02/05/17 08:51 Dose: 200 mg Aspirin (Aspirin Chewable) 81 mg PO DAILY [facility] Stop: 03/31/17 08:59 Last Admin: 02/05/17 08:54 Dose: 81 mg Atorvastatin Calcium (Lipitor) 10 mg PO HS AL PRN Reason: Protocol Stop: 03/31/17 20:59 Last Admin: 02/04/17 21:08 Dose: 10 mg Benztropine Mesylate (Cogentin) 1 mg PO BID [facility] Stop: 03/31/17 08:59 Last Admin: 02/05/17 08:53 Dose: 1 mg Bisacodyl (Dulcolax 10 Mg Supp) 10 mg RC DAILY PRN PRN Reason: if MOM ineffective Stop: 03/30/17 21:09 Budesonide (Pulmicort) 0.5 mg HHN BIDRT ON LICENSE OF [facility] Stop: 04/06/17 06:59 Last Admin: 02/05/17 07:06 Dose: 0.5 mg Clonazepam (Klonopin) 1 mg PO BID AL PRN Reason: Protocol Stop: 04/01/17 21:44 Last Admin: 02/05/17 08:54 Dose: 1 mg Dextrose (D50w) 25 ml IVP PRN PRN PRN Reason: BS BELOW 70 & NPO Stop: 03/30/17 21:14 Digoxin (Lanoxin) 0.25 mg PO DAILY [facility] Stop: 03/31/17 08:59 Last Admin: 02/05/17 08:52 Dose: 0.25 mg Docusate Sodium (Colace) 100 mg PO BID [facility] Stop: 03/31/17 08:59 Last Admin: 02/05/17 08:54 Dose: 100 mg Escitalopram Oxalate (Lexapro) 60 mg PO DAILY AL PRN Reason: Protocol Stop: 03/31/17 08:59 Last Admin: 02/05/17 08:52 Dose: 60 mg Ferrous Sulfate (Iron) 325 mg PO BID [facility] Stop: 03/31/17 08:59 Last Admin: 02/05/17 08:52 Dose: 325 mg Gabapentin (Neurontin) 300 mg PO TID AL Stop: 03/31/17 08:59 Last Admin: 02/05/17 08:52 Dose: 300 mg Hydromorphone HCl (Dilaudid) 1 mg IVP Q4HR PRN PRN Reason: Severe Pain Stop: 03/30/17 21:09 Last Admin: 02/05/17 12:41 Dose: 1 mg Insulin Aspart (Novolog Insulin Sliding Scale) 0 units SUBQ ACHS AL PRN Reason: Protocol Stop: 03/30/17 07:29 Last Admin: 02/05/17 12:26 Dose: 8 units Insulin Detemir (Levemir Insulin) 20 units SUBQ HS AL PRN Reason: Protocol Stop: 03/30/17 20:59 Last Admin: 02/04/17 21:43 Dose: 20 units Lactobacillus Rhamnosus (Culturelle) 1 each PO DAILY [facility] Stop: 04/02/17 08:59 Last Admin: 02/05/17 08:53 Dose: 1 each Lidocaine (Lidoderm 5% Patch) 1 patch TD DAILY [facility] Stop: 04/01/17 08:59 Last Admin: 02/05/17 08:50 Dose: 1 patch Lisinopril (Zestril) 10 mg PO Q12H ON LICENSE OF [facility] Stop: 03/30/17 22:59 Last Admin: 02/04/17 23:38 Dose: Not Given Magnesium Hydroxide (Milk Of Magnesia) 30 ml PO DAILY PRN PRN Reason: if no BM x2 days Stop: 03/30/17 21:09 Magnesium Oxide (Mag-Oxide) 400 mg PO DAILY ON [facility] OF [facility] Stop: 03/31/17 08:59 Last Admin: 02/05/17 08:51 Dose: 400 mg Methylprednisolone Sodium Succinate (Solu-Medrol) 80 mg IVP Q6HR AL Stop: 03/31/17 17:59 Last Admin: 02/05/17 12:41 Dose: 80 mg Metoprolol Tartrate (Lopressor) 25 mg PO Q12H [facility] Stop: 03/30/17 22:58 Last Admin: 02/04/17 23:36 Dose: Not Given Miscellaneous (Probiotic Screen) 1 ea MC PRN PRN PRN Reason: PROTOCOL Stop: 04/01/17 09:29 Ondansetron HCl (Zofran) 4 mg IV Q6H PRN PRN Reason: Nausea / Vomiting Stop: 03/30/17 21:10 Pantoprazole Sodium (Protonix) 40 mg PO AC ON [facility] OF [facility] Stop: 03/31/17 07:29 Last Admin: 02/05/17 06:52 Dose: 40 mg Promethazine HCl/Codeine (Phenergan W/Cod Susp) 5 ml PO Q4H PRN PRN Reason: Cough Stop: 03/31/17 18:56 Last Admin: 02/01/17 20:49 Dose: 5 ml Risperidone (Risperdal) 3 mg PO BID AL PRN Reason: Protocol Stop: 03/31/17 08:59 Last Admin: 02/05/17 08:52 Dose: 3 mg Sodium Phosphate (Fleet Enema) 135 ml RC DAILY PRN PRN Reason: if MOM or dulcolax ineffective Stop: 03/30/17 21:09 Spironolactone (Aldactone) 25 mg PO DAILY [facility] Stop: 03/31/17 08:59 Last Admin: 02/05/17 08:53 Dose: 25 mg Terazosin HCl (Hytrin) 5 mg PO HS ON [facility] Stop: 03/31/17 20:59 Last Admin: 02/04/17 21:08 Dose: 5 mg Assessment/Plan - Problem List Patient Problems: All Active Problems Diastolic CHF, acute on chronic (Acute) I50.33 H/O CHF (Acute) Z86.79 H/O cardiomyopathy (Acute) Z86.79 H/O diabetes mellitus (Acute) Z86.39 HTN (hypertension) (Acute) I10 h/o diastolic heart failure (Acute) intracticular fracture of the humeral he (Acute) Nutritional Asmnt/Malnutr-PDOC - Dietary Evaluation Malnutrition Findings (Please click <Entered> for more info): Nutritional Asmnt/Malnutrition Start: 01/31/17 11: 57 Text: Status: Complete Freq: Document 01/31/17 11:57 [facility] (Rec: 01/31/17 12:27 [id number]) Nutritional Asmnt/Malnutrition Patient General Information Nutritional Screening Consult Diagnosis Acute exacerbation of COPD Pertinent Medical Hx/Surgical Hx Underlying psychosis, severe peripheral neuropathy, HTN, DM , asthma, COPD, dyslipidemia, peptic ulcer disease, atrial fibillation, pacemaker placement. Subjective Information Nutrition Consult for BG 236 received and completed. Pt is a 51-year-old male admitted with chief complaint of increasing cough and increasing shortness of breath . Pt was awake and alert during time of visit. No muscle or fat depletion assessed. Pt reports having an "okay" appetite, eating three meals a day that his SNF prepares. RD offered diet education but pt declined at this time. Poor oral hygiene observed. Current Diet Order/ Nutrition Support CCHO-60 GM Patient / S.O Can Pertinent Medications Lipitor, Colace, Iron, Dilaudid, Novolog, Levemir, Levaquin, Mag-Oxide, Protonix, Risperdal Pertinent Labs (01/29) A1C 7H (01/31) Na 131L, BUN 32H, Glucose (fasting) 204H, POC Glucose 311H Nutritional Hx/Data Height 1.73 m Height (Calculated Centimeters) 172.7 Current Weight (lbs) 112.037 kg Weight (Calculated Kilograms) 112.0 Weight (Calculated Grams) 764741.3 Usual body Weight (lbs) 240 % Usual Body Weight 103 [place] Body Weight 154 % [place] Body Weight 156 Recent Weight Change No Weight Status Obese GI Symptoms GI Symptoms None Last BM Food Allergies No Cultural/Ethnic/[place] Belief No preferences provided. Usual diet at home Low salt, low fat, low sugar Skin Integrity/Comment: Apolinar 20. No skin breakdown. Current %PO Fair (50-74%) Estimated Nutritional Goals BEE in Kcals: Adj wt of IBW Calories/Kcals/Kg Based on IBW 70 kg with consideration of COPD exacerbation Kcals Calculated 3359-1499 kcals/day (30-35 kcals/kg) Protein: Adj wt of IBW Protein g/kg: Based on IBW 70 kg with consideration of COPD exacerbation Protein Calculated 91-140 gm/day (1.3-2 gm/kg) Fluid: ml 7312-9400 ml/day (1 ml/kcal) or per MD/DO Nutritional Problem 1. Problem Problem Altered-nutrition related laboratory values related to Etiology possible endocrine dysfunction or respiratory distress as evidenced by` Signs/Symptoms: fasting glucose 204 mg/dl on . Malnutrition Alert Protein-Calorie Malnutrition N/A Is there a minimum of two criteria No selected? Query Text:Check all the applicable criteria. A minimum of two criteria are recommended for diagnosis of either severe or non-severe malnutrition. Malnutrition Related to Morbid Obesity Malnutrition related to morbid obesity No Intervention/Recommendation Recommendations by RD Increase Calorie Intake Comments 1. Recommend increase diet to CCHO-75 gm to better meet estimated nutritional needs. 2. Pt declined nutrition education at this time. Expected Outcomes/Goals Expected Outcomes/Goals Blood glucose will trend towards desired parameters. Physician Parameters for PEM Serum Albumin (g/dl) 3.5 - 5.0 (Normal)
[2017-02-05] MEDS ORDERED: INSULIN ASPART, RECOMBINANT 100 UNITS/ML SUBQ ONE (19:10)
[2017-02-05] MEDS: Atorvastatin Calcium 10 MG TAB PO SCH (20:41)
[2017-02-05] MEDS: Insulin Detemir 100 units/mL 10mL Vial SUBQ SCH (20:49)
--- NOTE | 2017-02-25 22:34 | Discharge Summary ---
DATE OF DISCHARGE: 02/05/2017 HOSPITAL COURSE: The patient is very well known to me. He is a 51-year-old male patient known to have history of significant history of hypertension, history of diabetes, history of severe neuropathy, was admitted for the acute exacerbation of COPD, right shoulder pain, neuralgia, diabetes, and atrial fibrillation, status post pacemaker. The patient gradually improved, but still not completely stable enough to go back to the halfway. Arrangements were made for the patient to go to senior living acute care center at [place] where I will be following the patient. MEDICATIONS: See reconciliation sheet. JOB# [id number]
== END 2017-02-05 21:10 | disposition home or self-care (01) | DRG 189 ==
LOC: ER 15:01 → TELE 19:00
PROVIDERS: ADMIT Internal Medicine; ATTEND Internal Medicine
PROC: 5A09557 Assistance with Respiratory Ventilation, Greater than 96 Consecutive Hours, Continuous Positive Airway Pressure (ICD-10-PCS; principal; 2017-01-31)
DX: J96.00 Acute respiratory failure, unspecified whether with hypoxia or hypercapnia (principal); I50.33 Acute on chronic diastolic (congestive) heart failure; E11.42 Type 2 diabetes mellitus with diabetic polyneuropathy; I47.1 Supraventricular tachycardia; J44.0 Chronic obstructive pulmonary disease with (acute) lower respiratory infection; E87.5 Hyperkalemia; J44.1 Chronic obstructive pulmonary disease with (acute) exacerbation; I11.0 Hypertensive heart disease with heart failure; I48.91 Unspecified atrial fibrillation; E78.5 Hyperlipidemia, unspecified; K27.9 Peptic ulcer, site unspecified, unspecified as acute or chronic, without hemorrhage or perforation; F17.210 Nicotine dependence, cigarettes, uncomplicated; J20.9 Acute bronchitis, unspecified; G89.29 Other chronic pain; G47.33 Obstructive sleep apnea (adult) (pediatric); K21.9 Gastro-esophageal reflux disease without esophagitis; Z95.0 Presence of cardiac pacemaker; Z88.1 Allergy status to other antibiotic agents; Z88.8 Allergy status to other drugs, medicaments and biological substances; Z82.49 Family history of ischemic heart disease and other diseases of the circulatory system
CPT/HCPCS: 36415-UA; 36600-90; 71010-TC; 80048-TC; 80053-TC; 80061-TC; 80162-TC; 82140-TC; 82248-TC; 82803-TC; 82947-TC; 82948-90; 83036-90; 83605; 83880-TC; 84132-TC; 84443-TC; 84484-TC; 85007-TC; 85025-TC; 85027-TC; 87070; 93005; 94640; 94660; 94760; J1170; J1815; J1940; J1956; J2920; J2930; J7613; X3904; Z7610

== ENCOUNTER 2017-12-21 20:12 | Inpatient (IN) | payer MEDICARE, MEDICAID ==
[2017-12-21 20:58] LABS: % BASOPHILS 0.3 % (0.0-2.0); % EOSINOPHILS 3.5 % (0.0-5.0); % LYMPHOCYTES 22.6 % (20.0-50.0); % MONOCYTES 10.7 % (2.0-10.0); % NEUTROPHILS 62.9 % (40.0-80.0); EOSINOPHILE ABSOLUTE 0.3 Th/cmm (0.1-0.4); HEMATOCRIT 34.4 % (41.0-60); HEMOGLOBIN 12.1 gm/dL (12-16); LYMPHOCYTE ABSOLUTE 1.6 Th/cmm (1.5-3.0); MEAN CELL VOLUME 92.9 fl (80-99); MEAN CORPUSCULAR HEMOGLOBIN 32.7 pg (26.0-30.0); MEAN CORPUSCULAR HGB CONC 35.2 pg (28.0-36.0); MEAN PLATELET VOLUME 8.5 fl; MONOCYTE ABSOLUTE 0.8 Th/cmm (0.3-1.0); NEUTROPHILE ABSOLUTE 4.6 Th/cmm (1.8-8.0); PLATELET COUNT 175 Th/cmm (150-400); RED CELL DISTRIBUTION WIDTH 14.1 % (11.5-20.0); WHITE BLOOD COUNT 7.3 Th/cmm (4.8-10.8)
--- NOTE | 2017-12-21 21:06 | ED Physician Chart ---
ED Chief Complaint/HPI - Patient Information Date Seen:: 12/21/17 Time Seen:: 20:22 Chief Complaint:: psychosis History of Present Illness:: THIS IS A 52 YO MALE SENT FROM THE [facility] FOR AN EVALUATION AND TREATMENT OF HIS MENTAL DISORDER. HE HAS A LONG HISTORY OF COPD, MYALGIA, HYPERTENSION AND LIPID DISEASE. Allergies:: Allergies Allergy/AdvReac Type Severity Reaction Status Date / Time azithromycin Allergy Verified 12/21/17 20:31 erythromycin base Allergy Verified 12/21/17 20:31 lorazepam [From Ativan] Allergy Verified 12/21/17 20:31 Vitals:: Vital Signs - 8 hr 12/21/17 20:20 Temp 98.2 F HR 74 RR 18 BP 92/54 O2 Sat % 94 Historian:: EMS, Medical Records Review:: Nurse's Note Reviewed, Transfer documents Reviewed ED Review of Systems - Review of Systems General/Constitutional: No fever, No chills, No weight loss, No weakness, No diaphoresis, No edema, No loss of appetite Skin: No skin lesions, No rash, No bruising Head: No headache, No light-headedness Eyes: No loss of vision, No pain, No diplopia ENT: No earache, No nasal drainage, No sore throat, No tinnitus Neck: No neck pain, No swelling, No thyromegaly, No stiffness, No mass noted Cardio Vascular: No chest pain, No palpitations, No PND, No orthopnea, No edema Pulmonary: SOB, Cough, No sputum, Wheezing GI: No nausea, No vomiting, No diarrhea, No pain, No melena, No hematochezia, No constipation, No hematemesis G/U: No dysuria, No frequency, No hematuria Musculoskeletal: No bone or joint pain, No back pain, No muscle pain Endocrine: No polyuria, No polydipsia Psychiatric: Prior psych history, Depression, No anxiety, No suicidal ideation Hematopoietic: No bruising, No lymphadenopathy Allergic/Immuno: No urticaria, No angioedema Neurological: No syncope, No focal symptoms, No weakness, No paresthesia, No headache, No seizure, No dizziness, No confusion, No vertigo ED Past Medical History - Past Medical History Obtainable: Yes Past Medical History: HTN, DM, CAD, Asthma/COPD, Dyslipidemia Family History: None Social History: Non Smoker, No Alcohol, No Drug Use, Care Facility Surgical History: Pacemaker Psychiatricy History: Depression, Schizophrenia Family Medical History - Family Member Mother History Unknown: Yes Ethnicity: Non- Living Status: Still Living Hx Family Hypertension: Yes ED Physical Exam - Physical Examination General/Constitutional: Awake, Well-developed, well-nourished, Alert, No distress, GCS 15, Non-toxic appearing, Ambulatory Other Gen/Cons comments:: DEPRESSED MOOD Head: Atraumatic Eyes: Lids, conjuctiva normal, PERRL, EOMI Skin: Nl inspection, No rash, No skin lesions, No ecchymosis, Well hydrated, No lymphadenopathy ENMT: External ears, nose nl, Nasal exam nl, Lips, teeth, gums nl Neck: Nontender, Full ROM w/o pain, No JVD, No nuchal rigidity, No bruit, No mass, No stridor Respiratory: Nl effort/Exclusion, Clear to Auscultation (THERE IS BILATERAL DECREASE BREATH SOUND WITH RHONCHI AND WHEEZES HERAD IN BOTH LUNGS.), No Wheeze/ Rhonchi/Rales Cardio Vascular: RRR, No murmur, gallop, rubs, NL S1 S2 GI: No tenderness/rebounding/guarding, No organomegaly, No hernia, Normal BS's, Nondistended, No mass/bruits, No McBurney tenderness : No CVA tenderness Extremities: No tenderness or effusion, Full ROM, normal strength in all extremities, No edema, Normal digits & nails Neuro/Psych: Alert/oriented, DTR's symmetric, Normal sensory exam, Normal motor strength, Judgement/insight normal, Mood normal, Normal gait, No focal deficits Misc: Normal back, No paraspinal tenderness ED Labs/Radiology/EKG Results - Lab Results Results: Abnormal Lab Results 12/21/17 12/21/17 12/21/17 20:50 20:50 20:50 WBC 7.3 RBC 3.70 L Hgb 12.1 Hct 34.4 L MCV 92.9 MCH 32.7 H MCHC Differential 35.2 RDW 14.1 Plt Count 175 MPV 8.5 Neutrophils % 62.9 Lymphocytes % 22.6 Monocytes % 10.7 H Eosinophils % 3.5 Basophils % 0.3 Sodium 134 L Potassium 4.9 Chloride 100 Carbon Dioxide 28.2 Anion Gap 10.7 BUN 40 H Creatinine 1.6 H Est GFR ( Amer) 58.2 Est GFR (Non-Af Amer) 48.1 BUN/Creatinine Ratio 25.0 Glucose 155 H Calcium 8.9 Total Bilirubin 0.3 AST 14 ALT 14 Alkaline Phosphatase 66 Troponin I < 0.01 L Total Protein 6.6 Albumin 3.9 L Globulin 2.7 Albumin/Globulin Ratio 1.4 - Radiology Results Results: CHEST X-RAY= NAD - EKG Interpretations EKG Time:: 21:17 Rate & Rhythm: RATE = 76, SINUS [place]: LEFT Intervals: NO ECTOPY SEEN ED Assessment - Assessment General Assessment: DEPRESSED COPD ANEMIA ED Septic Shock - . Is Septic Shock (SBP<90, OR Lactate>4 mmol\L) present?: No - <6hrs of presentation: Vital Signs: Vital Signs - 8 hr 18 20:20 Temp 98.2 F HR 74 RR 18 BP 92/54 O2 Sat % 94 Skin Exam: Pallor ED Reassessment (Disposition) - Diagnosis Diagnosis:: PSYCHOSIS - Patient Disposition Discharge/Transfer:: Acute Care w/in this hosp Admitting Medical Physician:: Anson Stephen Admitting Psych Physician:: Mira Michaels Condition at Disposition:: Unchanged
--- NOTE | 2017-12-21 21:08 | ED Physician Chart ---
ED Chief Complaint/HPI - Patient Information Date Seen:: 12/21/17 Time Seen:: 20:22 Chief Complaint:: psychosis History of Present Illness:: THIS IS A 52 YO MALE SENT FROM THE [facility] FOR AN EVALUATION AND TREATMENT OF A MENTAL DISORDER. HE HAS A LONG HISTORY OF COPD, HYPERLIPIDEMA, HYPERTENSION AND HEART DISEASE. Allergies:: Allergies Allergy/AdvReac Type Severity Reaction Status Date / Time azithromycin Allergy Verified 12/21/17 20:31 erythromycin base Allergy Verified 12/21/17 20:31 lorazepam [From Ativan] Allergy Verified 12/21/17 20:31 Vitals:: Vital Signs - 8 hr 12/21/17 20:20 Temp 98.2 F HR 74 RR 18 BP 92/54 O2 Sat % 94 Historian:: Patient, Medical Records Review:: Nurse's Note Reviewed, Old Chart Reviewed, Transfer documents Reviewed ED Review of Systems - Review of Systems General/Constitutional: No fever, No chills, No weight loss, No weakness, No diaphoresis, No edema, No loss of appetite Skin: No skin lesions, No rash, No bruising Head: No headache, No light-headedness Eyes: No loss of vision, No pain, No diplopia ENT: No earache, No nasal drainage, No sore throat, No tinnitus Neck: No neck pain, No swelling, No thyromegaly, No stiffness, No mass noted Cardio Vascular: No chest pain, No palpitations, No PND, No orthopnea, No edema Pulmonary: SOB, Cough, Sputum, Wheezing GI: No nausea, No vomiting, No diarrhea, No pain, No melena, No hematochezia, No constipation, No hematemesis G/U: No dysuria, No frequency, No hematuria Musculoskeletal: No bone or joint pain, No back pain, No muscle pain Endocrine: No polyuria, No polydipsia Psychiatric: Prior psych history, Depression, No anxiety, No suicidal ideation Hematopoietic: No bruising, No lymphadenopathy Allergic/Immuno: No urticaria, No angioedema Neurological: No syncope, No focal symptoms, No weakness, No paresthesia, No headache, No seizure, No dizziness, No confusion, No vertigo ED Past Medical History - Past Medical History Obtainable: Yes Past Medical History: HTN, DM, CAD, Asthma/COPD, Dyslipidemia, Dementia Family History: None Social History: Non Smoker, No Alcohol, No Drug Use, Care Facility Surgical History: Pacemaker Psychiatricy History: Depression, Dementia Medication: Reviewed Family Medical History - Family Member Mother History Unknown: Yes Ethnicity: Non- Living Status: Still Living Hx Family Hypertension: Yes ED Physical Exam - Physical Examination General/Constitutional: Awake, Well-developed, well-nourished, Alert, No distress, GCS 15, Non-toxic appearing, Ambulatory Head: Atraumatic Eyes: Lids, conjuctiva normal, PERRL, EOMI Skin: Nl inspection, No rash, No skin lesions, No ecchymosis, Well hydrated, No lymphadenopathy ENMT: External ears, nose nl, Nasal exam nl, Lips, teeth, gums nl Neck: Nontender, Full ROM w/o pain, No JVD, No nuchal rigidity, No bruit, No mass, No stridor Respiratory: Nl effort/Exclusion, Clear to Auscultation (BILATERAL CONGESTION WITH RHONCHI HEARD), No Wheeze/Rhonchi/Rales Cardio Vascular: RRR, No murmur, gallop, rubs, NL S1 S2 GI: No tenderness/rebounding/guarding, No organomegaly, No hernia, Normal BS's, Nondistended, No mass/bruits, No McBurney tenderness : No CVA tenderness Extremities: No tenderness or effusion, Full ROM, normal strength in all extremities, No edema, Normal digits & nails Neuro/Psych: Alert/oriented, DTR's symmetric, Normal sensory exam, Normal motor strength, Judgement/insight normal, Mood normal (DEPRESSED), Normal gait, No focal deficits Misc: Normal back, No paraspinal tenderness ED Labs/Radiology/EKG Results - EKG Interpretations EKG Time:: 20:37 Rate & Rhythm: RATE =76,SINUS, [place]: LEFT AXIS ED Assessment - Assessment General Assessment: PSYCHOSIS COPD ED Septic Shock - . Is Septic Shock (SBP<90, OR Lactate>4 mmol\L) present?: No - <6hrs of presentation: Vital Signs: Vital Signs - 8 hr 12/21/17 20:20 Temp 98.2 F HR 74 RR 18 BP 92/54 O2 Sat % 94 ED Reassessment (Disposition) - Reassessment Reassessment Condition:: Unchanged
[2017-12-21 21:14] LABS: ALB/GLOB RATIO 1.4 (1.0-1.8); ALBUMIN 3.9 gm/dL (4.2-5.5); ANION GAP 10.7 (7.0-16.0); BILIRUBIN,TOTAL 0.3 mg/dL (0.3-1.0); CALCIUM SERUM 8.9 mg/dL (8.6-10.3); CARBON DIOXIDE 28.2 mEq/L (21.0-31.0); CREATININE - SERUM 1.6 mg/dL (0.7-1.3); GFR AFRICAN-AMERICAN 58.2 ml/min (>90); GFR NON AFRICAN-AMERICAN 48.1 ml/min; POTASSIUM SERUM 4.9 mEq/L (3.5-5.1); TOTAL PROTEIN,SERUM 6.6 gm/dL (6.0-8.3)
[2017-12-22 00:19] VITALS: BP 111/56
[2017-12-22] MEDS ORDERED: Albuterol/Ipratropium Neb 3 ML AERS HHN PRN (00:57)
[2017-12-22] MEDS ORDERED: Hydrocodone/APAP 5mg/325mg Tab PO PRN (00:57)
[2017-12-22] MEDS ORDERED: Magnesium Hydroxide (MOM) 30 mL UDC PO PRN (00:57)
[2017-12-22] MEDS ORDERED: Fleet Enema 135 mL RC PRN (00:57)
[2017-12-22] MEDS ORDERED: fentaNYL 75 mcg/hr Tdm Patch TD SCH (01:00)
[2017-12-22] MEDS: Albuterol/Ipratropium Neb 3 ML AERS HHN SCH ×3 (07:01→19:46)
[2017-12-22] MEDS ORDERED: Non-Formulary Item 1 EA (Docusate Sodium [Docusate Sodium] 100 MG) PO SCH (09:00)
[2017-12-22] MEDS ORDERED: VALSARTAN 40 MG PO SCH (09:00)
[2017-12-22] MEDS ORDERED: Non-Formulary Item 1 EA (Carvedilol [Coreg] 25 MG) PO SCH (09:00)
[2017-12-22] MEDS ORDERED: Non-Formulary Item 1 EA (Tiotropium Bromide [Spiriva] 18 MCG) INH SCH (09:00)
[2017-12-22] MEDS: Multivitamin Tab PO SCH (09:40)
--- NOTE | 2017-12-22 09:48 | Diagnostic Imaging Report ---
Portable chest x-ray HISTORY: Shortness of breath. The heart is enlarged. Cardiac electrode lead wires project over the right atrium and right ventricle. Faint density noted in the left lower lobe. Changes may be chronic. Early infiltrate cannot be excluded. Clinical correlation is needed. IMPRESSION: 1. Faint density within the left lower lobe. Changes may be chronic. Early infiltrate cannot be excluded. Clinical correlation is needed. 2. Cardiomegaly
[2017-12-22] MEDS ORDERED: guaiFENesin 200 MG/10 ML UDC PO PRN (12:00)
--- NOTE | 2017-12-22 12:00 | Internal Medicine Prog Note ---
Internal Medicine Subjective - Subjective Service Date: 12/22/17 ([id number]) Internal Medicine Objective - Results Result Diagrams: 12/21/17 20:50 12/21/17 20:50 Recent Labs: Laboratory Last Values WBC 7.3 Th/cmm (4.8-10.8) 12/21/17 20:50 RBC 3.70 Mil/cmm (4.30-5.70) L 12/21/17 20:50 Hgb 12.1 gm/dL (12-16) 12/21/17 20:50 Hct 34.4 % (41.0-60) L 12/21/17 20:50 MCV 92.9 fl (80-99) 12/21/17 20:50 MCH 32.7 pg (26.0-30.0) H 12/21/17 20:50 MCHC Differential 35.2 pg (28.0-36.0) 12/21/17 20:50 RDW 14.1 % (11.5-20.0) 12/21/17 20:50 Plt Count 175 Th/cmm (150-400) 12/21/17 20:50 MPV 8.5 fl 12/21/17 20:50 Neutrophils % 62.9 % (40.0-80.0) 12/21/17 20:50 Lymphocytes % 22.6 % (20.0-50.0) 12/21/17 20:50 Monocytes % 10.7 % (2.0-10.0) H 12/21/17 20:50 Eosinophils % 3.5 % (0.0-5.0) 12/21/17 20:50 Basophils % 0.3 % (0.0-2.0) 12/21/17 20:50 Sodium 134 mEq/L (136-145) L 12/21/17 20:50 Potassium 4.9 mEq/L (3.5-5.1) 12/21/17 20:50 Chloride 100 mEq/L (98-107) 12/21/17 20:50 Carbon Dioxide 28.2 mEq/L (21.0-31.0) 12/21/17 20:50 Anion Gap 10.7 (7.0-16.0) 12/21/17 20:50 BUN 40 mg/dL (7-25) H 12/21/17 20:50 Creatinine 1.6 mg/dL (0.7-1.3) H 12/21/17 20:50 Est GFR ( Amer) 58.2 ml/min (>90) 12/21/17 20:50 Est GFR (Non-Af Amer) 48.1 ml/min 12/21/17 20:50 BUN/Creatinine Ratio 25.0 12/21/17 20:50 Glucose 155 mg/dL (70-105) H 12/21/17 20:50 Calcium 8.9 mg/dL (8.6-10.3) 12/21/17 20:50 Total Bilirubin 0.3 mg/dL (0.3-1.0) 12/21/17 20:50 AST 14 U/L (13-39) 12/21/17 20:50 ALT 14 U/L (7-52) 12/21/17 20:50 Alkaline Phosphatase 66 U/L (34-104) 12/21/17 20:50 Troponin I < 0.01 ng/mL (0.01-0.05) L 12/21/17 20:50 Total Protein 6.6 gm/dL (6.0-8.3) 12/21/17 20:50 Albumin 3.9 gm/dL (4.2-5.5) L 12/21/17 20:50 Globulin 2.7 gm/dL 12/21/17 20:50 Albumin/Globulin Ratio 1.4 (1.0-1.8) 12/21/17 20:50 TSH 0.56 uIU/ml (0.34-5.60) 12/21/17 20:50 - Physical Exam Vitals and I&O: Vital Signs Temp 98.5 F 12/22/17 00:20 Pulse 70 12/22/17 09:42 Resp 18 12/22/17 07:53 BP 140/78 12/22/17 09:43 Pulse Ox 98 12/22/17 07:53 Intake & Output 12/21/17 12/22/17 12/22/17 18:59 06:59 18:59 Weight (lbs) 223 lb Other: Weight Source Patient stated Active Medications: Current Medications Acetaminophen (Tylenol) 650 mg PO Q4HR PRN PRN Reason: temp >100 or mild pain Stop: 02/20/18 00:56 Acetaminophen/Hydrocodone Bitart (Presto 5mg/325mg) 1 tab PO Q4H PRN PRN Reason: Pain (Moderate) LEVEL 4-6 Stop: 02/20/18 00:56 Albuterol/Ipratropium (Duoneb Neb) 3 ml HHN Q4HRT PRN PRN Reason: Shortness of Breath Stop: 02/20/18 00:56 Last Admin: 12/22/17 02:41 Dose: 3 ml Albuterol/Ipratropium (Duoneb Neb) 3 ml HHN Q6HRT [facility] Stop: 02/20/18 05:59 Last Admin: 12/22/17 07:01 Dose: 3 ml Ascorbic Acid (Vitamin C) 500 mg PO DAILY [facility] Stop: 02/20/18 08:59 Last Admin: 12/22/17 09:40 Dose: 500 mg Bisacodyl (Dulcolax 10 Mg Supp) 10 mg RC DAILY PRN PRN Reason: Constipation Stop: 02/20/18 00:56 Carvedilol (Coreg) 25 mg PO BID [facility] Stop: 02/20/18 08:59 Last Admin: 12/22/17 09:42 Dose: 25 mg Clonazepam (Klonopin) 1 mg PO TID [facility]; Protocol Stop: 02/20/18 08:59 Last Admin: 12/22/17 09:39 Dose: 1 mg Digoxin (Lanoxin) 0.25 mg PO DAILY [facility] Stop: 02/20/18 08:59 Last Admin: 12/22/17 09:41 Dose: 0.25 mg Docusate Sodium (Colace) 100 mg PO BID [facility] Stop: 02/20/18 08:59 Last Admin: 12/22/17 09:42 Dose: 100 mg Fentanyl (Duragesic 75 Mcg/Hr Tdm Patch) patch TD Q72HR [facility]; Protocol Stop: 02/20/18 00:59 Furosemide (Lasix) 40 mg PO DAILY [facility] Stop: 02/20/18 08:59 Last Admin: 12/22/17 09:43 Dose: 40 mg Gabapentin (Neurontin) 300 mg PO BID [facility] Stop: 02/20/18 08:59 Last Admin: 12/22/17 09:41 Dose: 300 mg Hydromorphone HCl (Dilaudid) 2 mg PO Q6HR PRN PRN Reason: Pain (Severe) LEVEL 7-10 Stop: 02/20/18 00:56 Magnesium Hydroxide (Milk Of Magnesia) 30 ml PO DAILY PRN PRN Reason: if no BM x2 days Stop: 02/20/18 00:56 Magnesium Oxide (Mag-Oxide) 400 mg PO DAILY [facility] Stop: 02/20/18 08:59 Last Admin: 12/22/17 09:42 Dose: 400 mg Metformin HCl (Glucophage) 500 mg PO BID [facility] Stop: 02/20/18 08:59 Last Admin: 12/22/17 09:40 Dose: 500 mg Multivitamins/Vitamin C (Theragran) 1 tab PO DAILY [facility] Stop: 02/20/18 08:59 Last Admin: 12/22/17 09:40 Dose: 1 tab Pantoprazole Sodium (Protonix) 40 mg PO DAILY@0730 [facility] Stop: 02/20/18 07:29 Quetiapine Fumarate (Seroquel) 50 mg PO BID [facility]; Protocol Stop: 02/20/18 08:59 Last Admin: 12/22/17 09:42 Dose: 50 mg Quetiapine Fumarate (Seroquel) 150 mg PO [facility]; Protocol Stop: 02/20/18 20:59 Sodium Phosphate (Fleet Enema) 135 ml RC DAILY PRN PRN Reason: if MOM or dulcolax ineffective Stop: 02/20/18 00:56 Spironolactone (Aldactone) 25 mg PO DAILY [facility] Stop: 02/20/18 08:59 Last Admin: 12/22/17 09:42 Dose: 25 mg Terazosin HCl (Hytrin) 5 mg PO [facility] Stop: 02/20/18 20:59 Tramadol HCl (Ultram) 50 mg PO BID [facility] Stop: 02/20/18 08:59 Last Admin: 12/22/17 09:41 Dose: 50 mg Valsartan (Diovan) 40 mg PO DAILY [facility] Stop: 02/20/18 08:59 Last Admin: 12/22/17 09:40 Dose: 40 mg - Procedures Procedures: Procedures Procedure Code Date ASSISTANCE WITH RESPIRATORY VENTILATION, >96 HRS, CPAP [id number] 01/29/17
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
--- NOTE | 2017-12-22 13:10 | History & Physical ---
ADMIT DATE: 12/22/2017 DICTATED FOR: Dr. Anson Stephen CHIEF COMPLAINT: Psychosis. HISTORY OF PRESENT ILLNESS: This is a 52-year-old male who is a alf resident of [facility], admitted to the Geropsych Unit for evaluation and treatment due to his mental disorder. The patient states that he has been having chronic bilateral shoulder pain due to long-term use of prednisone and Solu-Medrol. He states that he takes Dilaudid in alf and states that Dilaudid does not help with his pain. The patient denies any recent falls or any injuries. The patient is noted with a productive cough. PAST MEDICAL HISTORY: Hypertension, diabetes, CAD, asthma, COPD, dyslipidemia and acute renal failure. The patient states that he has an ejection fraction of 25%. FAMILY HISTORY: Noncontributory. SOCIAL HISTORY: The patient is a alf resident, requiring 24-hour nursing care. The patient is a former marijuana smoker. He also states that he used to drink alcohol for many years and the patient states that he smokes usually half a pack per day. PAST SURGICAL HISTORY: Pacemaker on the left upper chest. REVIEW OF SYSTEMS: GENERAL: Denies any fevers and chills. CARDIOVASCULAR: Denies any chest pain. RESPIRATORY: Denies any shortness of breath, but complains of productive cough. GASTROINTESTINAL: Denies nausea, vomiting, abdominal pain. GENITOURINARY: Denies increase frequency or dysuria. NEUROLOGIC: No headaches, seizures or syncope. All other systems are reviewed and are negative. PHYSICAL EXAMINATION: GENERAL: The patient is well-developed, well-nourished, in no apparent distress. VITAL SIGNS: Temperature 98.5, heart rate 76, blood pressure 111/56, respirations 20, O2 93%. HEENT: Head normocephalic, atraumatic. NECK: Supple. No mass. LUNGS: Rhonchi bilaterally. HEART: Regular rhythm. ABDOMEN: Soft, nontender. LABORATORY AND DIAGNOSTIC DATA: WBC 7.3, H and H 12.1/34.4, platelets of 175. Sodium 134, potassium 4.9, chloride 100, BUN 40, creatinine 1.6, glucose 155. Troponin less than 0.01. Albumin of 3.9. ASSESSMENT: Dyslipidemia, acute renal failure, early left lower lobe pneumonia and history of ejection fraction of 25%. PLAN: We will start the patient on Levaquin 500 mg p.o. daily. We will also get a repeat chest x-ray for tomorrow morning. We will place the patient on bronchodilators. We will continue to follow this patient. [facility]# [id number]
[2017-12-22] MEDS: Ipratropium Neb 0.5 mg/2.5 mL UD HHN SCH ×3 (16:40→19:50)
[2017-12-22] MEDS: Albuterol Nebulizer 2.5mg/3mL HHN SCH ×3 (16:42→19:50)
[2017-12-23] MEDS: Albuterol/Ipratropium Neb 3 ML AERS HHN SCH ×4 (00:23→19:29)
[2017-12-23] MEDS: Pantoprazole 40 mg EC Tab PO SCH (06:57)
--- NOTE | 2017-12-23 08:11 | Diagnostic Imaging Report ---
Exam: Right shoulder joint HISTORY: Pain. Prior CT exam: 03 30 2016 Findings: Multiple views of right shoulder joint reviewed. The study was correlated with the prior examination of the right shoulder joint of the left 2015. The study again demonstrates old the comminuted fracture along the articular surface of the right humeral head. The acromioclavicular joint is intact. IMPRESSION: Previously noted fracture of the right humeral head.
--- NOTE | 2017-12-23 08:13 | Diagnostic Imaging Report ---
EXAM: Left shoulder joint HISTORY: Pain COMPARISON: None FINDINGS: Multiple views of left shoulder joint reviewed. The study demonstrates no evidence of fracture or dislocation. There is no evidence of subluxation. The acromion clinically joint is intact. The head of right humerus is well within the glenoid fossa. IMPRESSION: Normal examination of the left shoulder joint.
--- NOTE | 2017-12-23 08:19 | Diagnostic Imaging Report ---
Portable chest x-ray Time: 0 738 History: Pneumonia Allowing for portable technique the heart size is normal. No focal pulmonary parenchymal processes. No hilar or mediastinal abnormalities. Impression: No acute abnormalities.
[2017-12-23] MEDS: Multivitamin Tab PO SCH (10:26)
--- NOTE | 2017-12-23 14:12 | Internal Medicine Prog Note ---
Internal Medicine Subjective - Subjective Service Date: 12/23/17 Patient seen and examined:: with staff Patient is:: awake Per staff patient has:: no adverse event, tolerating meds Internal Medicine Objective - Results Result Diagrams: 12/21/17 20:50 12/21/17 20:50 Recent Labs: Laboratory Last Values WBC 7.3 Th/cmm (4.8-10.8) 12/21/17 20:50 RBC 3.70 Mil/cmm (4.30-5.70) L 12/21/17 20:50 Hgb 12.1 gm/dL (12-16) 12/21/17 20:50 Hct 34.4 % (41.0-60) L 12/21/17 20:50 MCV 92.9 fl (80-99) 12/21/17 20:50 MCH 32.7 pg (26.0-30.0) H 12/21/17 20:50 MCHC Differential 35.2 pg (28.0-36.0) 12/21/17 20:50 RDW 14.1 % (11.5-20.0) 12/21/17 20:50 Plt Count 175 Th/cmm (150-400) 12/21/17 20:50 MPV 8.5 fl 12/21/17 20:50 Neutrophils % 62.9 % (40.0-80.0) 12/21/17 20:50 Lymphocytes % 22.6 % (20.0-50.0) 12/21/17 20:50 Monocytes % 10.7 % (2.0-10.0) H 12/21/17 20:50 Eosinophils % 3.5 % (0.0-5.0) 12/21/17 20:50 Basophils % 0.3 % (0.0-2.0) 12/21/17 20:50 Sodium 134 mEq/L (136-145) L 12/21/17 20:50 Potassium 4.9 mEq/L (3.5-5.1) 12/21/17 20:50 Chloride 100 mEq/L (98-107) 12/21/17 20:50 Carbon Dioxide 28.2 mEq/L (21.0-31.0) 12/21/17 20:50 Anion Gap 10.7 (7.0-16.0) 12/21/17 20:50 BUN 40 mg/dL (7-25) H 12/21/17 20:50 Creatinine 1.6 mg/dL (0.7-1.3) H 12/21/17 20:50 Est GFR ( Amer) 58.2 ml/min (>90) 12/21/17 20:50 Est GFR (Non-Af Amer) 48.1 ml/min 12/21/17 20:50 BUN/Creatinine Ratio 25.0 12/21/17 20:50 Glucose 155 mg/dL (70-105) H 12/21/17 20:50 Calcium 8.9 mg/dL (8.6-10.3) 12/21/17 20:50 Total Bilirubin 0.3 mg/dL (0.3-1.0) 12/21/17 20:50 AST 14 U/L (13-39) 12/21/17 20:50 ALT 14 U/L (7-52) 12/21/17 20:50 Alkaline Phosphatase 66 U/L (34-104) 12/21/17 20:50 Troponin I < 0.01 ng/mL (0.01-0.05) L 12/21/17 20:50 Total Protein 6.6 gm/dL (6.0-8.3) 12/21/17 20:50 Albumin 3.9 gm/dL (4.2-5.5) L 12/21/17 20:50 Globulin 2.7 gm/dL 12/21/17 20:50 Albumin/Globulin Ratio 1.4 (1.0-1.8) 12/21/17 20:50 TSH 0.56 uIU/ml (0.34-5.60) 12/21/17 20:50 - Physical Exam Vitals and I&O: Vital Signs Temp 0 F 12/23/17 06:32 Pulse 80 12/23/17 12:05 Resp 16 12/23/17 12:05 BP 107/55 12/23/17 10:39 Pulse Ox 93 12/23/17 12:05 Intake & Output 12/22/17 12/23/17 12/23/17 18:59 06:59 18:59 Intake Total 1200 180 Balance 1200 180 Intake: Oral 1200 180 Other: # Voids 3 3 # Bowel Movements 0 Active Medications: Current Medications Acetaminophen (Tylenol) 650 mg PO Q4HR PRN PRN Reason: temp >100 or mild pain Stop: 02/20/18 00:56 Acetaminophen/Hydrocodone Bitart ([place] 5mg/325mg) 1 tab PO Q4H PRN PRN Reason: Pain (Moderate) LEVEL 4-6 Stop: 02/20/18 00:56 Albuterol Sulfate (Albuterol 2.5mg/3ml Neb Ud) 2.5 mg HHN QIDRT [facility] Stop: 02/20/18 12:59 Last Admin: 12/22/17 19:50 Dose: Not Given Albuterol/Ipratropium (Duoneb Neb) 3 ml HHN Q4HRT PRN PRN Reason: Shortness of Breath Stop: 02/20/18 00:56 Last Admin: 12/22/17 02:41 Dose: 3 ml Albuterol/Ipratropium (Duoneb Neb) 3 ml HHN Q6HRT [facility] Stop: 02/20/18 05:59 Last Admin: 12/23/17 12:03 Dose: 3 ml Ascorbic Acid (Vitamin C) 500 mg PO DAILY [facility] Stop: 02/20/18 08:59 Last Admin: 12/23/17 10:28 Dose: 500 mg Bisacodyl (Dulcolax 10 Mg Supp) 10 mg RC DAILY PRN PRN Reason: Constipation Stop: 02/20/18 00:56 Carvedilol (Coreg) 25 mg PO BID [facility] Stop: 02/20/18 08:59 Last Admin: 12/23/17 10:37 Dose: Not Given Clonazepam (Klonopin) 1 mg PO TID [facility]; Protocol Stop: 02/20/18 08:59 Last Admin: 12/23/17 10:35 Dose: 1 mg Cyclobenzaprine HCl (Flexeril) 10 mg PO Q8HR PRN PRN Reason: muscle relaxant Stop: 02/20/18 12:04 Digoxin (Lanoxin) 0.25 mg PO DAILY [facility] Stop: 02/20/18 08:59 Last Admin: 12/23/17 10:26 Dose: 0.25 mg Docusate Sodium (Colace) 100 mg PO BID [facility] Stop: 02/20/18 08:59 Last Admin: 12/23/17 10:27 Dose: 100 mg Furosemide (Lasix) 40 mg PO DAILY [facility] Stop: 02/20/18 08:59 Last Admin: 12/23/17 10:38 Dose: Not Given Gabapentin (Neurontin) 300 mg PO BID [facility] Stop: 02/20/18 08:59 Last Admin: 12/23/17 10:28 Dose: 300 mg Guaifenesin (Robitussin) 100 mg PO Q4H PRN PRN Reason: Cough or Congestion Stop: 02/20/18 11:59 Hydromorphone HCl (Dilaudid) 2 mg PO Q6HR PRN PRN Reason: Pain (Severe) LEVEL 7-10 Stop: 02/20/18 00:56 Last Admin: 12/23/17 07:01 Dose: 2 mg Ipratropium [place] (Atrovent Neb 0.5mg/2.5ml) 0.5 mg HHN QIDRT [facility] Stop: 02/20/18 12:59 Last Admin: 12/22/17 19:50 Dose: Not Given Levofloxacin (Levaquin) 500 mg PO DAILY [facility] Stop: 02/21/18 08:59 Last Admin: 12/23/17 10:26 Dose: 500 mg Magnesium Hydroxide (Milk Of Magnesia) 30 ml PO DAILY PRN PRN Reason: if no BM x2 days Stop: 02/20/18 00:56 Magnesium Oxide (Mag-Oxide) 400 mg PO DAILY [facility] Stop: 02/20/18 08:59 Last Admin: 12/23/17 10:25 Dose: 400 mg Metformin HCl (Glucophage) 500 mg PO BID [facility] Stop: 02/20/18 08:59 Last Admin: 12/23/17 10:25 Dose: 500 mg Mirtazapine (Remeron) 15 mg PO HS [facility]; Protocol Stop: 02/21/18 20:59 Multivitamins/Vitamin C (Theragran) 1 tab PO DAILY [facility] Stop: 02/20/18 08:59 Last Admin: 12/23/17 10:26 Dose: 1 tab Pantoprazole Sodium (Protonix) 40 mg PO DAILY@0730 [facility] Stop: 02/20/18 07:29 Last Admin: 12/23/17 06:57 Dose: 40 mg Quetiapine Fumarate (Seroquel) 50 mg PO BID [facility]; Protocol Stop: 02/20/18 08:59 Last Admin: 12/23/17 10:38 Dose: 50 mg Quetiapine Fumarate (Seroquel) 150 mg PO HS [facility]; Protocol Stop: 02/20/18 20:59 Last Admin: 12/22/17 21:28 Dose: 150 mg Sodium Phosphate (Fleet Enema) 135 ml RC DAILY PRN PRN Reason: if MOM or dulcolax ineffective Stop: 02/20/18 00:56 Spironolactone (Aldactone) 25 mg PO DAILY [facility] Stop: 02/20/18 08:59 Last Admin: 12/23/17 10:38 Dose: Not Given Terazosin HCl (Hytrin) 5 mg PO HS [facility] Stop: 02/20/18 20:59 Last Admin: 12/22/17 21:54 Dose: Not Given Tramadol HCl (Ultram) 50 mg PO BID [facility] Stop: 02/20/18 08:59 Last Admin: 12/23/17 10:26 Dose: 50 mg Valsartan (Diovan) 40 mg PO DAILY [facility] Stop: 02/20/18 08:59 Last Admin: 12/23/17 10:39 Dose: Not Given General: alert HEENT: NC/AT, PERRLA Neck: Supple Lungs: CTAB Cardiovascular: RRR, Normal S1, Normal S2 Abdomen: soft, non-tender, non-distended, positive bowel sound Neurological: no change - Procedures Procedures: Procedures Procedure Code Date ASSISTANCE WITH RESPIRATORY VENTILATION, >96 HRS, CPAP [id number] 01/29/17 Internal Medicine Assmt/Plan - Assessment Assessment: chronic shoulder pain acute renal failure early left lobe pneumonia hx ej 25% dyslipidemia - Plan Plan: spoke to pt's about no pain medications will be increased or added. continue current plan of care
[2017-12-23] MEDS: Ipratropium Neb 0.5 mg/2.5 mL UD HHN SCH (19:28)
[2017-12-23] MEDS: Albuterol Nebulizer 2.5mg/3mL HHN SCH (19:28)
[2017-12-24] MEDS: Pantoprazole 40 mg EC Tab PO SCH (06:34)
[2017-12-24] MEDS: Ipratropium Neb 0.5 mg/2.5 mL UD HHN SCH ×4 (07:25→19:12)
[2017-12-24] MEDS: Albuterol Nebulizer 2.5mg/3mL HHN SCH ×4 (07:25→19:12)
[2017-12-24] MEDS: Albuterol/Ipratropium Neb 3 ML AERS HHN SCH ×4 (07:26→19:00)
[2017-12-24] MEDS: Multivitamin Tab PO SCH (09:37)
--- NOTE | 2017-12-24 13:12 | Internal Medicine Prog Note ---
Internal Medicine Subjective - Subjective Service Date: 12/24/17 Patient is:: awake Per staff patient has:: no adverse event, tolerating meds Internal Medicine Objective - Results Result Diagrams: 12/21/17 20:50 12/21/17 20:50 Recent Labs: Laboratory Last Values WBC 7.3 Th/cmm (4.8-10.8) 12/21/17 20:50 RBC 3.70 Mil/cmm (4.30-5.70) L 12/21/17 20:50 Hgb 12.1 gm/dL (12-16) 12/21/17 20:50 Hct 34.4 % (41.0-60) L 12/21/17 20:50 MCV 92.9 fl (80-99) 12/21/17 20:50 MCH 32.7 pg (26.0-30.0) H 12/21/17 20:50 MCHC Differential 35.2 pg (28.0-36.0) 12/21/17 20:50 RDW 14.1 % (11.5-20.0) 12/21/17 20:50 Plt Count 175 Th/cmm (150-400) 12/21/17 20:50 MPV 8.5 fl 12/21/17 20:50 Neutrophils % 62.9 % (40.0-80.0) 12/21/17 20:50 Lymphocytes % 22.6 % (20.0-50.0) 12/21/17 20:50 Monocytes % 10.7 % (2.0-10.0) H 12/21/17 20:50 Eosinophils % 3.5 % (0.0-5.0) 12/21/17 20:50 Basophils % 0.3 % (0.0-2.0) 12/21/17 20:50 Sodium 134 mEq/L (136-145) L 12/21/17 20:50 Potassium 4.9 mEq/L (3.5-5.1) 12/21/17 20:50 Chloride 100 mEq/L (98-107) 12/21/17 20:50 Carbon Dioxide 28.2 mEq/L (21.0-31.0) 12/21/17 20:50 Anion Gap 10.7 (7.0-16.0) 12/21/17 20:50 BUN 40 mg/dL (7-25) H 12/21/17 20:50 Creatinine 1.6 mg/dL (0.7-1.3) H 12/21/17 20:50 Est GFR ( Amer) 58.2 ml/min (>90) 12/21/17 20:50 Est GFR (Non-Af Amer) 48.1 ml/min 12/21/17 20:50 BUN/Creatinine Ratio 25.0 12/21/17 20:50 Glucose 155 mg/dL (70-105) H 12/21/17 20:50 Calcium 8.9 mg/dL (8.6-10.3) 12/21/17 20:50 Total Bilirubin 0.3 mg/dL (0.3-1.0) 12/21/17 20:50 AST 14 U/L (13-39) 12/21/17 20:50 ALT 14 U/L (7-52) 12/21/17 20:50 Alkaline Phosphatase 66 U/L (34-104) 12/21/17 20:50 Troponin I < 0.01 ng/mL (0.01-0.05) L 12/21/17 20:50 Total Protein 6.6 gm/dL (6.0-8.3) 12/21/17 20:50 Albumin 3.9 gm/dL (4.2-5.5) L 12/21/17 20:50 Globulin 2.7 gm/dL 12/21/17 20:50 Albumin/Globulin Ratio 1.4 (1.0-1.8) 12/21/17 20:50 TSH 0.56 uIU/ml (0.34-5.60) 12/21/17 20:50 - Physical Exam Vitals and I&O: Vital Signs Temp 98.7 F 12/24/17 06:36 Pulse 75 12/24/17 11:50 Resp 18 12/24/17 11:50 BP 112/56 12/24/17 09:41 Pulse Ox 96 12/24/17 11:50 Intake & Output 12/23/17 12/24/17 12/24/17 18:59 06:59 18:59 Intake Total 1200 420 Balance 1200 420 Intake: Oral 1200 420 Other: # Voids 3 2 # Bowel Movements 1 0 Active Medications: Current Medications Acetaminophen (Tylenol) 650 mg PO Q4HR PRN PRN Reason: temp >100 or mild pain Stop: 02/20/18 00:56 Acetaminophen/Hydrocodone Bitart ([place] 5mg/325mg) 1 tab PO Q4H PRN PRN Reason: Pain (Moderate) LEVEL 4-6 Stop: 02/20/18 00:56 Albuterol Sulfate (Albuterol 2.5mg/3ml Neb Ud) 2.5 mg HHN QIDRT [facility] Stop: 02/20/18 12:59 Last Admin: 12/24/17 11:48 Dose: 2.5 mg Albuterol/Ipratropium (Duoneb Neb) 3 ml HHN Q4HRT PRN PRN Reason: Shortness of Breath Stop: 02/20/18 00:56 Last Admin: 12/22/17 02:41 Dose: 3 ml Albuterol/Ipratropium (Duoneb Neb) 3 ml HHN Q6HRT [facility] Stop: 02/20/18 05:59 Last Admin: 12/24/17 07:26 Dose: Not Given Ascorbic Acid (Vitamin C) 500 mg PO DAILY [facility] Stop: 02/20/18 08:59 Last Admin: 12/24/17 09:37 Dose: 500 mg Bisacodyl (Dulcolax 10 Mg Supp) 10 mg RC DAILY PRN PRN Reason: Constipation Stop: 02/20/18 00:56 Carvedilol (Coreg) 25 mg PO BID [facility] Stop: 02/20/18 08:59 Last Admin: 12/24/17 09:40 Dose: Not Given Clonazepam (Klonopin) 1 mg PO TID [facility]; Protocol Stop: 02/20/18 08:59 Last Admin: 12/24/17 12:00 Dose: 1 mg Cyclobenzaprine HCl (Flexeril) 10 mg PO Q8HR PRN PRN Reason: muscle relaxant Stop: 02/20/18 12:04 Digoxin (Lanoxin) 0.25 mg PO DAILY [facility] Stop: 02/20/18 08:59 Last Admin: 12/24/17 09:41 Dose: Not Given Docusate Sodium (Colace) 100 mg PO BID [facility] Stop: 02/20/18 08:59 Last Admin: 12/24/17 09:37 Dose: 100 mg Furosemide (Lasix) 40 mg PO DAILY [facility] Stop: 02/20/18 08:59 Last Admin: 12/24/17 09:41 Dose: Not Given Gabapentin (Neurontin) 300 mg PO BID [facility] Stop: 02/20/18 08:59 Last Admin: 12/24/17 12:00 Dose: 300 mg Guaifenesin (Robitussin) 100 mg PO Q4H PRN PRN Reason: Cough or Congestion Stop: 02/20/18 11:59 Hydromorphone HCl (Dilaudid) 2 mg PO Q6HR PRN PRN Reason: Pain (Severe) LEVEL 7-10 Stop: 02/20/18 00:56 Last Admin: 12/24/17 06:34 Dose: 2 mg Ipratropium [place] (Atrovent Neb 0.5mg/2.5ml) 0.5 mg HHN QIDRT [facility] Stop: 02/20/18 12:59 Last Admin: 12/24/17 11:48 Dose: 0.5 mg Levofloxacin (Levaquin) 500 mg PO DAILY [facility] Stop: 02/21/18 08:59 Last Admin: 12/24/17 09:36 Dose: 500 mg Magnesium Hydroxide (Milk Of Magnesia) 30 ml PO DAILY PRN PRN Reason: if no BM x2 days Stop: 02/20/18 00:56 Magnesium Oxide (Mag-Oxide) 400 mg PO DAILY [facility] Stop: 02/20/18 08:59 Last Admin: 12/24/17 09:36 Dose: 400 mg Metformin HCl (Glucophage) 500 mg PO BID [facility] Stop: 02/20/18 08:59 Last Admin: 12/24/17 09:38 Dose: 500 mg Mirtazapine (Remeron) 15 mg PO [facility]; Protocol Stop: 02/21/18 20:59 Last Admin: 12/23/17 21:20 Dose: 15 mg Multivitamins/Vitamin C (Theragran) 1 tab PO DAILY [facility] Stop: 02/20/18 08:59 Last Admin: 12/24/17 09:37 Dose: 1 tab Mupirocin (Bactroban Oint) 1 appl NS BID [facility] Stop: 12/28/17 09:01 Last Admin: 12/24/17 09:41 Dose: Not Given Pantoprazole Sodium (Protonix) 40 mg PO DAILY@0730 [facility] Stop: 02/20/18 07:29 Last Admin: 12/24/17 06:34 Dose: 40 mg Quetiapine Fumarate (Seroquel) 50 mg PO BID [facility]; Protocol Stop: 02/20/18 08:59 Last Admin: 12/24/17 09:36 Dose: 50 mg Quetiapine Fumarate (Seroquel) 150 mg PO HS [facility]; Protocol Stop: 02/20/18 20:59 Last Admin: 12/23/17 21:20 Dose: 150 mg Sodium Phosphate (Fleet Enema) 135 ml RC DAILY PRN PRN Reason: if MOM or dulcolax ineffective Stop: 02/20/18 00:56 Spironolactone (Aldactone) 25 mg PO DAILY [facility] Stop: 02/20/18 08:59 Last Admin: 12/24/17 09:41 Dose: Not Given Terazosin HCl (Hytrin) 5 mg PO HS [facility] Stop: 02/20/18 20:59 Last Admin: 12/23/17 21:40 Dose: Not Given Tramadol HCl (Ultram) 50 mg PO BID [facility] Stop: 02/20/18 08:59 Last Admin: 12/24/17 12:00 Dose: 50 mg Valsartan (Diovan) 40 mg PO DAILY [facility] Stop: 02/20/18 08:59 Last Admin: 12/24/17 09:41 Dose: Not Given General: alert HEENT: NC/AT, PERRLA Neck: Supple Lungs: CTAB Cardiovascular: RRR, Normal S1, Normal S2 Abdomen: soft, non-tender, non-distended, positive bowel sound Neurological: no change - Procedures Procedures: Procedures Procedure Code Date ASSISTANCE WITH RESPIRATORY VENTILATION, >96 HRS, CPAP [id number] 01/29/17 Internal Medicine Assmt/Plan - Assessment Assessment: chronic shoulder pain acute renal failure early left lobe pneumonia hx ej 25% dyslipidemia - Plan Plan: spoke to pt's about no pain medications will be increased or added. continue current plan of care
--- NOTE | 2017-12-25 00:20 | Progress Notes ---
DATE: 12/23/2017 SUBJECTIVE: Chart reviewed and the patient interviewed. Also discussed the patient's condition with the staff and reviewed records and labs. The patient is still anxious and is still in irritable mood. He also focused on pain medications. The patient kept talking to me about his pain and that he needs pain management and needs a lot of adjustment to his pain. Also, he is still in a depressed mood and he is still isolative and withdrawn. Also, at times seems to be slightly suspicious. Otherwise, the patient is compliant with taking his medications with no side effects of Klonopin or Seroquel or Remeron. ASSESSMENT: The patient is still depressed and slightly agitated. TREATMENT PLAN: We will continue monitoring his behavior closely. Also, we will increase Remeron to 15 mg at bedtime and we will continue to follow up closely. JOB# [id number]
--- NOTE | 2017-12-25 04:36 | Progress Notes ---
DATE: 12/24/2017 PSYCHIATRIC PROGRESS NOTE SUBJECTIVE: Chart reviewed and the patient interviewed. Also, discussed the patient's condition with the staff and reviewed records and labs. The patient is complaining of "physical pain." The patient said that he has increased pain and he has been having difficulty dealing with the pain. Also, has been feeling hopeless and helpless. The patient at times have multiple somatic complaints. He is also severely anxious and he is still in a depressed mood. ASSESSMENT: The patient is still depressed and is in pain. TREATMENT PLAN: Continue to monitor his behavior and his condition closely. Also, continue to work on his ineffective coping. Also, reported to staff, address his ____ pain medications and if he was in need of any changes. JOB# [id number]
[2017-12-25] MEDS: Pantoprazole 40 mg EC Tab PO SCH (06:42)
[2017-12-25] MEDS: Ipratropium Neb 0.5 mg/2.5 mL UD HHN SCH ×4 (06:52→18:41)
[2017-12-25] MEDS: Albuterol Nebulizer 2.5mg/3mL HHN SCH ×4 (06:52→18:41)
[2017-12-25] MEDS: Albuterol/Ipratropium Neb 3 ML AERS HHN SCH ×3 (06:54→14:11)
[2017-12-25] MEDS: Multivitamin Tab PO SCH (09:30)
--- NOTE | 2017-12-25 15:12 | Internal Medicine Prog Note ---
Internal Medicine Subjective - Subjective Service Date: 12/25/17 Patient is:: awake Per staff patient has:: no adverse event, tolerating meds Internal Medicine Objective - Results Result Diagrams: 12/21/17 20:50 12/21/17 20:50 Recent Labs: Laboratory Last Values WBC 7.3 Th/cmm (4.8-10.8) 12/21/17 20:50 RBC 3.70 Mil/cmm (4.30-5.70) L 12/21/17 20:50 Hgb 12.1 gm/dL (12-16) 12/21/17 20:50 Hct 34.4 % (41.0-60) L 12/21/17 20:50 MCV 92.9 fl (80-99) 12/21/17 20:50 MCH 32.7 pg (26.0-30.0) H 12/21/17 20:50 MCHC Differential 35.2 pg (28.0-36.0) 12/21/17 20:50 RDW 14.1 % (11.5-20.0) 12/21/17 20:50 Plt Count 175 Th/cmm (150-400) 12/21/17 20:50 MPV 8.5 fl 12/21/17 20:50 Neutrophils % 62.9 % (40.0-80.0) 12/21/17 20:50 Lymphocytes % 22.6 % (20.0-50.0) 12/21/17 20:50 Monocytes % 10.7 % (2.0-10.0) H 12/21/17 20:50 Eosinophils % 3.5 % (0.0-5.0) 12/21/17 20:50 Basophils % 0.3 % (0.0-2.0) 12/21/17 20:50 Sodium 134 mEq/L (136-145) L 12/21/17 20:50 Potassium 4.9 mEq/L (3.5-5.1) 12/21/17 20:50 Chloride 100 mEq/L (98-107) 12/21/17 20:50 Carbon Dioxide 28.2 mEq/L (21.0-31.0) 12/21/17 20:50 Anion Gap 10.7 (7.0-16.0) 12/21/17 20:50 BUN 40 mg/dL (7-25) H 12/21/17 20:50 Creatinine 1.6 mg/dL (0.7-1.3) H 12/21/17 20:50 Est GFR ( Amer) 58.2 ml/min (>90) 12/21/17 20:50 Est GFR (Non-Af Amer) 48.1 ml/min 12/21/17 20:50 BUN/Creatinine Ratio 25.0 12/21/17 20:50 Glucose 155 mg/dL (70-105) H 12/21/17 20:50 Calcium 8.9 mg/dL (8.6-10.3) 12/21/17 20:50 Total Bilirubin 0.3 mg/dL (0.3-1.0) 12/21/17 20:50 AST 14 U/L (13-39) 12/21/17 20:50 ALT 14 U/L (7-52) 12/21/17 20:50 Alkaline Phosphatase 66 U/L (34-104) 12/21/17 20:50 Troponin I < 0.01 ng/mL (0.01-0.05) L 12/21/17 20:50 Total Protein 6.6 gm/dL (6.0-8.3) 12/21/17 20:50 Albumin 3.9 gm/dL (4.2-5.5) L 12/21/17 20:50 Globulin 2.7 gm/dL 12/21/17 20:50 Albumin/Globulin Ratio 1.4 (1.0-1.8) 12/21/17 20:50 TSH 0.56 uIU/ml (0.34-5.60) 12/21/17 20:50 - Physical Exam Vitals and I&O: Vital Signs Temp 98.9 F 12/25/17 06:24 Pulse 78 12/25/17 14:09 Resp 16 12/25/17 14:09 BP 114/67 12/25/17 09:30 Pulse Ox 94 12/25/17 14:09 Intake & Output 12/24/17 12/25/17 12/25/17 18:59 06:59 18:59 Intake Total 120 Balance 120 Intake: Oral 120 Other: # Voids 3 # Bowel Movements 0 Active Medications: Current Medications Acetaminophen (Tylenol) 650 mg PO Q4HR PRN PRN Reason: temp >100 or mild pain Stop: 02/20/18 00:56 Acetaminophen/Hydrocodone Bitart ([place] 5mg/325mg) 1 tab PO Q4H PRN PRN Reason: Pain (Moderate) LEVEL 4-6 Stop: 02/20/18 00:56 Albuterol Sulfate (Albuterol 2.5mg/3ml Neb Ud) 2.5 mg HHN QIDRT [facility] Stop: 02/20/18 12:59 Last Admin: 12/25/17 14:05 Dose: 2.5 mg Albuterol/Ipratropium (Duoneb Neb) 3 ml HHN Q4HRT PRN PRN Reason: Shortness of Breath Stop: 02/20/18 00:56 Last Admin: 12/22/17 02:41 Dose: 3 ml Albuterol/Ipratropium (Duoneb Neb) 3 ml HHN Q6HRT [facility] Stop: 02/20/18 05:59 Last Admin: 12/25/17 14:11 Dose: Not Given Ascorbic Acid (Vitamin C) 500 mg PO DAILY [facility] Stop: 02/20/18 08:59 Last Admin: 12/25/17 09:28 Dose: 500 mg Bisacodyl (Dulcolax 10 Mg Supp) 10 mg RC DAILY PRN PRN Reason: Constipation Stop: 02/20/18 00:56 Carvedilol (Coreg) 25 mg PO BID [facility] Stop: 02/20/18 08:59 Last Admin: 12/25/17 09:29 Dose: 25 mg Clonazepam (Klonopin) 1 mg PO TID [facility]; Protocol Stop: 02/20/18 08:59 Last Admin: 12/25/17 14:05 Dose: 1 mg Cyclobenzaprine HCl (Flexeril) 10 mg PO Q8HR PRN PRN Reason: muscle relaxant Stop: 02/20/18 12:04 Digoxin (Lanoxin) 0.25 mg PO DAILY [facility] Stop: 02/20/18 08:59 Last Admin: 12/25/17 09:28 Dose: 0.25 mg Docusate Sodium (Colace) 100 mg PO BID [facility] Stop: 02/20/18 08:59 Last Admin: 12/25/17 09:27 Dose: 100 mg Furosemide (Lasix) 40 mg PO DAILY [facility] Stop: 02/20/18 08:59 Last Admin: 12/25/17 09:28 Dose: 40 mg Gabapentin (Neurontin) 300 mg PO BID [facility] Stop: 02/20/18 08:59 Last Admin: 12/25/17 09:30 Dose: 300 mg Guaifenesin (Robitussin) 100 mg PO Q4H PRN PRN Reason: Cough or Congestion Stop: 02/20/18 11:59 Hydromorphone HCl (Dilaudid) 2 mg PO Q6HR PRN PRN Reason: Pain (Severe) LEVEL 7-10 Stop: 02/20/18 00:56 Last Admin: 12/25/17 06:41 Dose: 2 mg Ipratropium [place] (Atrovent Neb 0.5mg/2.5ml) 0.5 mg HHN QIDRT [facility] Stop: 02/20/18 12:59 Last Admin: 12/25/17 14:05 Dose: 0.5 mg Levofloxacin (Levaquin) 500 mg PO DAILY [facility] Stop: 02/21/18 08:59 Last Admin: 12/25/17 09:27 Dose: 500 mg Magnesium Hydroxide (Milk Of Magnesia) 30 ml PO DAILY PRN PRN Reason: if no BM x2 days Stop: 02/20/18 00:56 Magnesium Oxide (Mag-Oxide) 400 mg PO DAILY [facility] Stop: 02/20/18 08:59 Last Admin: 12/25/17 09:27 Dose: 400 mg Metformin HCl (Glucophage) 500 mg PO BID [facility] Stop: 02/20/18 08:59 Last Admin: 12/25/17 09:28 Dose: 500 mg Mirtazapine (Remeron) 15 mg PO HS [facility]; Protocol Stop: 02/21/18 20:59 Last Admin: 12/24/17 20:55 Dose: 15 mg Multivitamins/Vitamin C (Theragran) 1 tab PO DAILY [facility] Stop: 02/20/18 08:59 Last Admin: 12/25/17 09:30 Dose: 1 tab Mupirocin (Bactroban Oint) 1 appl NS BID [facility] Stop: 12/28/17 09:01 Last Admin: 12/25/17 12:06 Dose: 1 appl Pantoprazole Sodium (Protonix) 40 mg PO DAILY@0730 [facility] Stop: 02/20/18 07:29 Last Admin: 12/25/17 06:42 Dose: 40 mg Quetiapine Fumarate (Seroquel) 50 mg PO BID [facility]; Protocol Stop: 02/20/18 08:59 Last Admin: 12/25/17 09:28 Dose: 50 mg Quetiapine Fumarate 100 mg/ (Quetiapine Fumarate 50 mg) 150 mg PO HS [facility] Stop: 02/23/18 20:59 Sodium Phosphate (Fleet Enema) 135 ml RC DAILY PRN PRN Reason: if MOM or dulcolax ineffective Stop: 02/20/18 00:56 Spironolactone (Aldactone) 25 mg PO DAILY [facility] Stop: 02/20/18 08:59 Last Admin: 12/25/17 09:30 Dose: 25 mg Terazosin HCl (Hytrin) 5 mg PO HS [facility] Stop: 02/20/18 20:59 Last Admin: 12/24/17 23:12 Dose: Not Given Tramadol HCl (Ultram) 50 mg PO BID [facility] Stop: 02/20/18 08:59 Last Admin: 12/25/17 09:30 Dose: 50 mg Valsartan (Diovan) 40 mg PO DAILY [facility] Stop: 02/20/18 08:59 Last Admin: 12/25/17 09:30 Dose: 40 mg General: alert HEENT: NC/AT, PERRLA Neck: Supple Lungs: CTAB Cardiovascular: RRR, Normal S1, Normal S2 Abdomen: soft, non-tender, non-distended, positive bowel sound Neurological: no change - Procedures Procedures: Procedures Procedure Code Date ASSISTANCE WITH RESPIRATORY VENTILATION, >96 HRS, CPAP [id number] 01/29/17 Internal Medicine Assmt/Plan - Assessment Assessment: chronic shoulder pain acute renal failure early left lobe pneumonia hx ej 25% dyslipidemia - Plan Plan: spoke to pt's about no pain medications will be increased or added. continue current plan of care Nutritional Asmnt/Malnutr-PDOC - Dietary Evaluation Malnutrition Findings (Please click <Entered> for more info): Nutritional Asmnt/Malnutrition Start: 12/24/17 17: 35 Text: Status: Complete Freq: Protocol: Document 12/24/17 17:38 LCHENG (Rec: 12/24/17 17:48 ARTIS [email or web address]) Nutritional Asmnt/Malnutrition Patient General Information Nutritional Screening Moderate Risk Diagnosis psychosis Pertinent Medical Hx/Surgical Hx HTN, DM, CAD, asthma/COPD, dyslipidemia, depression, schizophrenia Subjective Information Pt seen eating in dining room. Pt stated good appetite. PO intake 100% per EMR. Current Diet Order/ Nutrition Support [facility] Pertinent Labs 12/21 Na 134, BUN 40, Cr 1.6, glucose 155 Nutritional Hx/Data Height 5 ft 9 in Height (Calculated Centimeters) 175.3 Current Weight (lbs) 223 lb Weight (Calculated Kilograms) 101.2 Weight (Calculated Grams) 576589.1 [place] Body Weight 160 Body Mass Index (BMI) 32.9 Weight Status Obese GI Symptoms GI Symptoms None Last BM 12/23 Difficult in: None Skin Integrity/Comment: intact Current %PO Good (75-100%) Estimated Nutritional Goals BEE in Kcals: Adj wt of IBW Calories/Kcals/Kg 25-30 Kcals Calculated 1802-8337 Protein: Adj wt of IBW Protein g/k-1.2 Protein Calculated 80-96 Fluid: ml 2000-2400ml (1ml/kcal) Nutritional Problem 1. Problem Problem altered nutrition related labs Etiology hx of DM, renal dysfunction Signs/Symptoms: BUN 40, Cr 1.6, glucose 155 Malnutrition Alert Is there a minimum of two criteria No selected? Query Text:Check all the applicable criteria. A minimum of two criteria are recommended for diagnosis of either severe or non-severe malnutrition. Malnutrition Related to Morbid Obesity Malnutrition related to morbid obesity No Intervention/Recommendation Comments 1. Continue with current diet as ordered. Monitor renal labs 2. Monitor PO intake, wt, labs and skin integrity 3. F/U as low risk in 7 days, 12/31 Expected Outcomes/Goals Expected Outcomes/Goals 1. PO intake to meet at least 75% of nutritional needs. 2. Wt stability, skin to remain intact, labs to approach WNL.
[2017-12-26] MEDS: Pantoprazole 40 mg EC Tab PO SCH (06:30)
[2017-12-26] MEDS: Albuterol/Ipratropium Neb 3 ML AERS HHN SCH ×3 (07:19→13:59)
[2017-12-26] MEDS: Albuterol Nebulizer 2.5mg/3mL HHN SCH ×3 (07:21→14:00)
[2017-12-26] MEDS: Ipratropium Neb 0.5 mg/2.5 mL UD HHN SCH ×3 (07:21→14:01)
[2017-12-26] MEDS: Multivitamin Tab PO SCH (08:42)
--- NOTE | 2017-12-26 14:43 | Internal Medicine Prog Note ---
Internal Medicine Subjective - Subjective Patient seen and examined:: with staff, chart reviewed Patient is:: awake, verbal, non-interactive Per staff patient has:: no adverse event, no episodes of fall, noncompliant, tolerating meds Internal Medicine Objective - Results Result Diagrams: 12/21/17 20:50 12/21/17 20:50 Recent Labs: Laboratory Last Values WBC 7.3 Th/cmm (4.8-10.8) 12/21/17 20:50 RBC 3.70 Mil/cmm (4.30-5.70) L 12/21/17 20:50 Hgb 12.1 gm/dL (12-16) 12/21/17 20:50 Hct 34.4 % (41.0-60) L 12/21/17 20:50 MCV 92.9 fl (80-99) 12/21/17 20:50 MCH 32.7 pg (26.0-30.0) H 12/21/17 20:50 MCHC Differential 35.2 pg (28.0-36.0) 12/21/17 20:50 RDW 14.1 % (11.5-20.0) 12/21/17 20:50 Plt Count 175 Th/cmm (150-400) 12/21/17 20:50 MPV 8.5 fl 12/21/17 20:50 Neutrophils % 62.9 % (40.0-80.0) 12/21/17 20:50 Lymphocytes % 22.6 % (20.0-50.0) 12/21/17 20:50 Monocytes % 10.7 % (2.0-10.0) H 12/21/17 20:50 Eosinophils % 3.5 % (0.0-5.0) 12/21/17 20:50 Basophils % 0.3 % (0.0-2.0) 12/21/17 20:50 Sodium 134 mEq/L (136-145) L 12/21/17 20:50 Potassium 4.9 mEq/L (3.5-5.1) 12/21/17 20:50 Chloride 100 mEq/L (98-107) 12/21/17 20:50 Carbon Dioxide 28.2 mEq/L (21.0-31.0) 12/21/17 20:50 Anion Gap 10.7 (7.0-16.0) 12/21/17 20:50 BUN 40 mg/dL (7-25) H 12/21/17 20:50 Creatinine 1.6 mg/dL (0.7-1.3) H 12/21/17 20:50 Est GFR ( Amer) 58.2 ml/min (>90) 12/21/17 20:50 Est GFR (Non-Af Amer) 48.1 ml/min 12/21/17 20:50 BUN/Creatinine Ratio 25.0 12/21/17 20:50 Glucose 155 mg/dL (70-105) H 12/21/17 20:50 Calcium 8.9 mg/dL (8.6-10.3) 12/21/17 20:50 Total Bilirubin 0.3 mg/dL (0.3-1.0) 12/21/17 20:50 AST 14 U/L (13-39) 12/21/17 20:50 ALT 14 U/L (7-52) 12/21/17 20:50 Alkaline Phosphatase 66 U/L (34-104) 12/21/17 20:50 Troponin I < 0.01 ng/mL (0.01-0.05) L 12/21/17 20:50 Total Protein 6.6 gm/dL (6.0-8.3) 12/21/17 20:50 Albumin 3.9 gm/dL (4.2-5.5) L 12/21/17 20:50 Globulin 2.7 gm/dL 12/21/17 20:50 Albumin/Globulin Ratio 1.4 (1.0-1.8) 12/21/17 20:50 TSH 0.56 uIU/ml (0.34-5.60) 12/21/17 20:50 - Physical Exam Vitals and I&O: Vital Signs Temp 97.2 F 12/26/17 06:22 Pulse 86 12/26/17 14:03 Resp 18 12/26/17 14:03 BP 104/60 12/26/17 08:45 Pulse Ox 96 12/26/17 14:03 Intake & Output 12/25/17 12/26/17 12/26/17 18:59 06:59 18:59 Intake Total 120 Balance 120 Intake: Oral 120 Other: # Voids 3 3 # Bowel Movements 1 Active Medications: Current Medications Acetaminophen (Tylenol) 650 mg PO Q4HR PRN PRN Reason: temp >100 or mild pain Stop: 02/20/18 00:56 Acetaminophen/Hydrocodone Bitart ([place] 5mg/325mg) 1 tab PO Q4H PRN PRN Reason: Pain (Moderate) LEVEL 4-6 Stop: 02/20/18 00:56 Albuterol Sulfate (Albuterol 2.5mg/3ml Neb Ud) 2.5 mg HHN QIDRT [facility] Stop: 02/20/18 12:59 Last Admin: 12/26/17 14:00 Dose: 2.5 mg Albuterol/Ipratropium (Duoneb Neb) 3 ml HHN Q4HRT PRN PRN Reason: Shortness of Breath Stop: 02/20/18 00:56 Last Admin: 12/22/17 02:41 Dose: 3 ml Albuterol/Ipratropium (Duoneb Neb) 3 ml HHN Q6HRT [facility] Stop: 02/20/18 05:59 Last Admin: 12/26/17 13:59 Dose: Not Given Ascorbic Acid (Vitamin C) 500 mg PO DAILY [facility] Stop: 02/20/18 08:59 Last Admin: 12/26/17 08:42 Dose: 500 mg Bisacodyl (Dulcolax 10 Mg Supp) 10 mg RC DAILY PRN PRN Reason: Constipation Stop: 02/20/18 00:56 Carvedilol (Coreg) 25 mg PO BID [facility] Stop: 02/20/18 08:59 Last Admin: 12/26/17 08:45 Dose: Not Given Clonazepam (Klonopin) 1 mg PO TID [facility]; Protocol Stop: 02/20/18 08:59 Last Admin: 12/26/17 13:07 Dose: 1 mg Cyclobenzaprine HCl (Flexeril) 10 mg PO Q8HR PRN PRN Reason: muscle relaxant Stop: 02/20/18 12:04 Digoxin (Lanoxin) 0.25 mg PO DAILY [facility] Stop: 02/20/18 08:59 Last Admin: 12/26/17 08:41 Dose: 0.25 mg Docusate Sodium (Colace) 100 mg PO BID [facility] Stop: 02/20/18 08:59 Last Admin: 12/26/17 08:40 Dose: 100 mg Furosemide (Lasix) 40 mg PO DAILY [facility] Stop: 02/20/18 08:59 Last Admin: 12/26/17 08:41 Dose: 40 mg Gabapentin (Neurontin) 300 mg PO BID [facility] Stop: 02/20/18 08:59 Last Admin: 12/26/17 08:40 Dose: 300 mg Guaifenesin (Robitussin) 100 mg PO Q4H PRN PRN Reason: Cough or Congestion Stop: 02/20/18 11:59 Hydromorphone HCl (Dilaudid) 2 mg PO Q6HR PRN PRN Reason: Pain (Severe) LEVEL 7-10 Stop: 02/20/18 00:56 Last Admin: 12/26/17 13:07 Dose: 2 mg Ipratropium [place] (Atrovent Neb 0.5mg/2.5ml) 0.5 mg HHN QIDRT [facility] Stop: 02/20/18 12:59 Last Admin: 12/26/17 14:01 Dose: Not Given Levofloxacin (Levaquin) 500 mg PO DAILY [facility] Stop: 02/21/18 08:59 Last Admin: 12/26/17 08:41 Dose: 500 mg Magnesium Hydroxide (Milk Of Magnesia) 30 ml PO DAILY PRN PRN Reason: if no BM x2 days Stop: 02/20/18 00:56 Magnesium Oxide (Mag-Oxide) 400 mg PO DAILY [facility] Stop: 02/20/18 08:59 Last Admin: 12/26/17 08:40 Dose: 400 mg Metformin HCl (Glucophage) 500 mg PO BID [facility] Stop: 02/20/18 08:59 Last Admin: 12/26/17 08:41 Dose: 500 mg Mirtazapine (Remeron) 15 mg PO HS [facility]; Protocol Stop: 02/21/18 20:59 Last Admin: 12/25/17 20:53 Dose: 15 mg Multivitamins/Vitamin C (Theragran) 1 tab PO DAILY [facility] Stop: 02/20/18 08:59 Last Admin: 12/26/17 08:42 Dose: 1 tab Mupirocin (Bactroban Oint) 1 appl NS BID [facility] Stop: 12/28/17 09:01 Last Admin: 12/26/17 08:43 Dose: 1 appl Pantoprazole Sodium (Protonix) 40 mg PO DAILY@0730 [facility] Stop: 02/20/18 07:29 Last Admin: 12/26/17 06:30 Dose: 40 mg Quetiapine Fumarate (Seroquel) 50 mg PO BID [facility]; Protocol Stop: 02/20/18 08:59 Last Admin: 12/26/17 08:44 Dose: 50 mg Quetiapine Fumarate 100 mg/ (Quetiapine Fumarate 50 mg) 150 mg PO HS [facility] Stop: 02/23/18 20:59 Last Admin: 12/25/17 20:56 Dose: 150 mg Sodium Phosphate (Fleet Enema) 135 ml RC DAILY PRN PRN Reason: if MOM or dulcolax ineffective Stop: 02/20/18 00:56 Spironolactone (Aldactone) 25 mg PO DAILY [facility] Stop: 02/20/18 08:59 Last Admin: 12/26/17 08:45 Dose: Not Given Terazosin HCl (Hytrin) 5 mg PO HS [facility] Stop: 02/20/18 20:59 Last Admin: 12/25/17 20:52 Dose: 5 mg Tramadol HCl (Ultram) 50 mg PO BID [facility] Stop: 02/20/18 08:59 Last Admin: 12/26/17 08:42 Dose: 50 mg Valsartan (Diovan) 40 mg PO DAILY [facility] Stop: 02/20/18 08:59 Last Admin: 12/26/17 08:45 Dose: Not Given General: alert HEENT: NC/AT, PERRLA Neck: Supple Lungs: CTAB Cardiovascular: RRR, Normal S1, Normal S2 Abdomen: soft, non-tender, non-distended, positive bowel sound Extremities: excoriation Neurological: no change - Procedures Procedures: Procedures Procedure Code Date ASSISTANCE WITH RESPIRATORY VENTILATION, >96 HRS, CPAP [id number] 01/29/17 Internal Medicine Assmt/Plan - Assessment Assessment: Assessment: chronic shoulder pain acute renal failure early left lobe pneumonia hx ej 25% dyslipidemia - Plan Plan: spoke to pt's about no pain medications will be increased or added. continue current plan of care - Plan Plan: fall precaution monitor for fluid overload razia rn Nutritional Asmnt/Malnutr-PDOC - Dietary Evaluation Malnutrition Findings (Please click <Entered> for more info): Nutritional Asmnt/Malnutrition Start: 12/24/17 17: 35 Text: Status: Complete Freq: Protocol: Document 12/24/17 17:38 LCHENG (Rec: 12/24/17 17:48 LCHENG [email or web address]) Nutritional Asmnt/Malnutrition Patient General Information Nutritional Screening Moderate Risk Diagnosis psychosis Pertinent Medical Hx/Surgical Hx HTN, DM, CAD, asthma/COPD, dyslipidemia, depression, schizophrenia Subjective Information Pt seen eating in dining room. Pt stated good appetite. PO intake 100% per EMR. Current Diet Order/ Nutrition Support KADE, [facility] Pertinent Labs 12/21 Na 134, BUN 40, Cr 1.6, glucose 155 Nutritional Hx/Data Height 1.75 m Height (Calculated Centimeters) 175.3 Current Weight (lbs) 101.151 kg Weight (Calculated Kilograms) 101.2 Weight (Calculated Grams) 152054.1 [place] Body Weight 160 Body Mass Index (BMI) 32.9 Weight Status Obese GI Symptoms GI Symptoms None Last BM 12/23 Difficult in: None Skin Integrity/Comment: intact Current %PO Good (75-100%) Estimated Nutritional Goals BEE in Kcals: Adj wt of IBW Calories/Kcals/Kg 25-30 Kcals Calculated 3680-4020 Protein: Adj wt of IBW Protein g/k-1.2 Protein Calculated 80-96 Fluid: ml 2000-2400ml (1ml/kcal) Nutritional Problem 1. Problem Problem altered nutrition related labs Etiology hx of DM, renal dysfunction Signs/Symptoms: BUN 40, Cr 1.6, glucose 155 Malnutrition Alert Is there a minimum of two criteria No selected? Query Text:Check all the applicable criteria. A minimum of two criteria are recommended for diagnosis of either severe or non-severe malnutrition. Malnutrition Related to Morbid Obesity Malnutrition related to morbid obesity No Intervention/Recommendation Comments 1. Continue with current diet as ordered. Monitor renal labs 2. Monitor PO intake, wt, labs and skin integrity 3. F/U as low risk in 7 days, 12/31 Expected Outcomes/Goals Expected Outcomes/Goals 1. PO intake to meet at least 75% of nutritional needs. 2. Wt stability, skin to remain intact, labs to approach WNL.
--- NOTE | 2017-12-27 23:38 | Discharge Summary ---
DATE OF DISCHARGE: 12/26/2017 THE PATIENT'S AGE: 52. SEX: Male. PHYSICIAN: Dr. Michaels. FINAL DIAGNOSIS/PRIMARY DIAGNOSIS: Bipolar disorder, depressed episode, severe. SECONDARY DIAGNOSIS: Opiate use disorder. History of alcohol dependence. MEDICAL DIAGNOSES: 1. Diabetes mellitus. 2. Congestive heart failure. 3. Hyperlipidemia. 4. Gastroesophageal reflux disease. 5. Atrial fibrillation. REASON FOR HOSPITALIZATION: The patient was admitted to the hospital from [facility] because of increased agitation and irritability and "pain management." HOSPITAL COURSE: The patient continued to be in angry mood and he continued to say that he is in the hospital because of his pain and for pain management. The patient was depressed and argumentative. I tried to explain to the patient the reason why he was in the hospital, it was not successful and insisted that he is in the hospital because of pain assessment. He also was having episodes of agitation and irritability. The patient was given gabapentin in a dose of 300 mg twice a day and Klonopin 1 mg 3 times a day. The patient continued to be agitated and in irritable mood. He also was not able to follow directions. He also was insisting about his pain and pain management. He also continued to take Remeron 15 mg at bedtime. The patient gradually was less irritable and he also was agreeable to return to [facility]. Also, continue to take Seroquel 50 mg twice a day and 150 mg at bedtime with no side effect. Physical examination of the patient came as mentioned under final diagnosis. The patient had no major medical problems while in the hospital. AFTER DISCHARGE PLANS: The patient discharged from the hospital and returned to [facility] with plans for outpatient treatment there. EXPECTED OUTCOME AFTER DISCHARGE: Fair if the patient continued with his treatment and continued to take his psychotropic medications. JOB# [id number]
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
== END 2017-12-26 16:07 | DRG 885 ==
LOC: ER 20:12 → GERO 21:53
PROVIDERS: ADMIT Psychiatry & Neurology Psychiatry; ATTEND Psychiatry & Neurology Psychiatry
DX: F31.9 Bipolar disorder, unspecified (principal); N17.9 Acute kidney failure, unspecified; I11.0 Hypertensive heart disease with heart failure; J18.1 Lobar pneumonia, unspecified organism; J44.9 Chronic obstructive pulmonary disease, unspecified; I25.10 Atherosclerotic heart disease of native coronary artery without angina pectoris; E78.5 Hyperlipidemia, unspecified; D64.9 Anemia, unspecified; F29 Unspecified psychosis not due to a substance or known physiological condition; G89.29 Other chronic pain; M25.512 Pain in left shoulder; M25.511 Pain in right shoulder; F43.10 Post-traumatic stress disorder, unspecified; I48.91 Unspecified atrial fibrillation; I50.9 Heart failure, unspecified; K21.9 Gastro-esophageal reflux disease without esophagitis; Z88.1 Allergy status to other antibiotic agents; Z95.0 Presence of cardiac pacemaker; Z82.49 Family history of ischemic heart disease and other diseases of the circulatory system; Z88.8 Allergy status to other drugs, medicaments and biological substances
CPT/HCPCS: 36415-UA; 71045-TC; 73030-TC-LT; 73030-TC-RT; 80053-TC; 84443-TC; 84484-TC; 85025-TC; 90779; 93005; 94640; 94760; J7613; Z7610